=== PATIENT | female | born 1935 | race Caucasian/White ===

== ENCOUNTER 2017-06-21 11:20 | Inpatient (IN) ==
[2017-06-21] MEDS ORDERED: 0.9 % SODIUM CHLORIDE 1,000 ML IV ONE (11:42)
--- NOTE | 2017-06-21 12:18 | Emergency Department Note ---
Weakness HPI - General Chief complaint: Weakness Stated complaint: weakness Time Seen by Provider: 06/21/17 11:28 Source: patient, family, EMS Mode of arrival: wheelchair Limitations: no limitations - History of Present Illness HPI Narrative: 81-year-old female presents with her daughter for 1 month of confusion, lethargy , and weakness. She has been to [facility] multiple times in the last month and has had 2 CTs which were negative for any acute abnormality. She is also had urinary tract infections which have been treated but have not completely resolved. She is also had a cough for about a week and a half. Her oxygen saturation was low on arrival. She is pretty confused and know she is at the hospital but does not want to be here. She also has pain. Her daughter states she has been complaining of a headache. She is not on blood thinners. She did have a stroke in March 2016 that did show up on a CT scan. No diarrhea. She has not been hospitalized in the last month. She is at home with family. She is not eating very much and has not had many bowel movements because of this and is not drinking much water. - Related Data Home Medications Medication Instructions Recorded Confirmed amLODIPine [Norvasc] 10 mg PO DAILY 12/29/14 06/21/17 metFORMIN [Glucophage] 500 mg PO BID 12/29/14 06/21/17 Cyclobenzaprine HCl 10 mg PO DAILYP PRN 04/10/16 06/21/17 Donepezil HCl [Aricept] 10 mg PO HS 04/10/16 06/21/17 Furosemide [Lasix] 20 mg PO DAILY PRN 04/10/16 06/21/17 Levothyroxine [Synthroid] 100 mcg PO DAILY 04/10/16 06/21/17 Memantine HCl 50 mg PO DAILY 04/10/16 06/21/17 Polyethylene Glycol 3350 17 gm PO 3XW 04/10/16 06/21/17 [Smoothlax] Quinapril HCl [Accupril] 40 mg PO BID 04/10/16 06/21/17 Atorvastatin [Lipitor] 40 mg PO HS 06/21/17 06/21/17 Oxybutynin Chloride [Oxybutynin 10 mg PO DAILY 06/21/17 06/21/17 Chloride ER] Potassium Chloride [Klor-Con M20] 40 meq PO DAILY 06/21/17 06/21/17 Previous Rx's Medication Instructions Recorded Aspirin 324 mg CHEWED DAILY 60 Days 04/15/16 tab.chew Allergies Allergy/AdvReac Type Severity Reaction Status Date / Time codeine AdvReac Mild Other Verified 04/11/16 15:23 hydrocodone AdvReac Mild Other Verified 04/11/16 15:23 tramadol [From Ultram] AdvReac Mild Other Verified 04/11/16 15:23 Review of Systems All systems ED: reviewed and negative except as stated. 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 Absent: tenderness, lymphadenopathy Chest: Present: normal inspection, symmetric chest wall rise Respiratory: Present: other (crackles right upper and lower lobe with decrease in lung sounds in the left lower lobe) Cardiovascular: Present: regular rate, normal heart sounds Abdominal: Present: soft, normal bowel sounds. Absent: tenderness Extremities: Present: normal inspection, full ROM Neurological: Present: alert, CN II-XII intact (grossly intact. she does not follow commands well to check all cranial nerves). Absent: oriented X3 Patient oriented to: Present: person, place. Absent: time Coma Scale Eye Opening: Spontaneous Coma Scale Motor Response: Localizes to Pain Coma Scale Verbal Response: Confused Coma Scale Total: 13 Psychiatric: Present: flat affect Skin: Present: warm, dry, intact Course Vital Signs Temperature 100.1 F H 06/21/17 11:22 Pulse Rate 90 06/21/17 11:22 Respiratory Rate 18 06/21/17 11:22 Blood Pressure 136/94 06/21/17 11:22 Pulse Oximetry (%) 92 06/21/17 11:22 Temperature 99.4 F H 06/21/17 16:20 Pulse Rate 72 06/21/17 16:20 Respiratory Rate 22 06/21/17 16:20 Blood Pressure 114/53 06/21/17 16:20 Pulse Oximetry (%) 94 06/21/17 16:20 Weakness - MDM Narrative Medical decision making narrative: She will be admitted - Medical Records Medical records reviewed: Yes I reviewed the patient's medical records. On 05/30 the patient's BUN was 18, her creatinine was 1.0, her AST was 18, and her ALT was 10. This is dramatically changed in the last 3 weeks. On the she had elevated liver enzymes and they did a CT scan which did not show any abnormality. We are getting an ultrasound to evaluate her liver - Lab Data Lab results reviewed: Yes I reviewed the patient's lab results. Result diagrams: 06/21/17 12:11 06/21/17 12:10 Lab Results 06/21/17 06/21/17 06/21/17 Range/Units 12:01 12:10 12:10 WBC (4.5-11.0) K/mcL RBC (4.00-5.20) M/mcL Hgb (12.0-15.0) g/dL Hct (36.0-48.0) % MCV (80.0-100.0) fL MCH (26.0-34.0) pg MCHC (31.0-36.0) g/dL RDW (11.5-14.5) % Plt Count (140-440) K/mcL MPV (7.4-10.4) fL Total Counted Seg Neutrophils % (38-78) % Band Neutrophils % (0-10) % Lymphocytes % (15-49) % Monocytes % (Manual) (1-12) % Eosinophils % (Manual) (0-7) % Metamyelocytes % (0-0) % Reactive Lymphocytes (0-2) % Platelet Estimate (NORMAL) RBC Morphology (NORMAL) VBG Lactic Acid 0.9 (0.5-2.2) mmol/L Sodium 137 (133-145) mmol/L Potassium 5.4 H (3.3-5.1) mmol/L Chloride 103 (96-108) mmol/L Carbon Dioxide 19 L (22-30) mmol/L Anion Gap 15.0 (8-16) BUN 54 H (8-23) mg/dl Creatinine 2.2 H (0.6-1.1) mg/dl GFR Calculation 20 Glucose 84 (70-105) mg/dL Calcium 9.4 (8.6-10.4) mg/dl Total Bilirubin 1.8 H (0.0-1.0) mg/dL AST 68 H (0-37) U/l ALT 119 H (0-40) U/l Alkaline Phosphatase 246 H (39-117) U/L Ammonia (11-51) umol/L NT-Pro-B Natriuret Pep (0-450) pg/ml Total Protein 6.5 (5.9-8.4) gm/dL Albumin 3.2 (3.2-5.2) gm/dL Globulin 3.3 (2.2-3.7) gm/dL Albumin/Globulin Ratio 1.0 (1.0-2.3) Procalcitonin 2.64 (<0.10) ng/mL Urine Color Urine Appearance Urine pH (5.0-9.0) Ur Specific [place] (1.000-1.035) Urine Protein (NEG) mg/dL Urine Glucose (UA) (NEG) mg/dL Urine Ketones (NEG) mg/dL Urine Occult Blood (<0.03) mg/dL Urine Nitrate (NEG) Urine Bilirubin (NEG) mg/dL Urine Urobilinogen (NEG) mg/dL Ur Leukocyte Esterase (NEG) /uL Urine RBC (0-1) /hpf Urine WBC (0-4) /hpf Ur Squamous Epith Cells (0-4) /hpf Urine Bacteria (0) /hpf Urine Yeast (Budding) (0) /hpf Ur Culture Indicated? 06/21/17 06/21/17 06/21/17 Range/Units 12:10 12:11 12:11 WBC 18.9 H (4.5-11.0) K/mcL RBC 4.10 (4.00-5.20) M/mcL Hgb 11.9 L (12.0-15.0) g/dL Hct 36.1 (36.0-48.0) % MCV 88.1 (80.0-100.0) fL MCH 29.0 (26.0-34.0) pg MCHC 32.9 (31.0-36.0) g/dL RDW 15.7 H (11.5-14.5) % Plt Count 279 (140-440) K/mcL MPV 9.8 (7.4-10.4) fL Total Counted 100 Seg Neutrophils % 79 H (38-78) % Band Neutrophils % 5 (0-10) % Lymphocytes % 7 L (15-49) % Monocytes % (Manual) 2 (1-12) % Eosinophils % (Manual) 5 (0-7) % Metamyelocytes % 1 H (0-0) % Reactive Lymphocytes 1 (0-2) % Platelet Estimate Normal (NORMAL) RBC Morphology Normal (NORMAL) VBG Lactic Acid (0.5-2.2) mmol/L Sodium (133-145) mmol/L Potassium (3.3-5.1) mmol/L Chloride (96-108) mmol/L Carbon Dioxide (22-30) mmol/L Anion Gap (8-16) BUN (8-23) mg/dl Creatinine (0.6-1.1) mg/dl GFR Calculation Glucose (70-105) mg/dL Calcium (8.6-10.4) mg/dl Total Bilirubin (0.0-1.0) mg/dL AST (0-37) U/l ALT (0-40) U/l Alkaline Phosphatase (39-117) U/L Ammonia (11-51) umol/L NT-Pro-B Natriuret Pep 3185.0 H (0-450) pg/ml Total Protein (5.9-8.4) gm/dL Albumin (3.2-5.2) gm/dL Globulin (2.2-3.7) gm/dL Albumin/Globulin Ratio (1.0-2.3) Procalcitonin (<0.10) ng/mL Urine Color Yellow Urine Appearance Hazy Urine pH 5.0 (5.0-9.0) Ur Specific [place] 1.016 (1.000-1.035) Urine Protein Neg (NEG) mg/dL Urine Glucose (UA) Negative (NEG) mg/dL Urine Ketones Neg (NEG) mg/dL Urine Occult Blood 0.03 A (<0.03) mg/dL Urine Nitrate Neg (NEG) Urine Bilirubin Neg (NEG) mg/dL Urine Urobilinogen Neg (NEG) mg/dL Ur Leukocyte Esterase 25 A (NEG) /uL Urine RBC 8 H (0-1) /hpf Urine WBC 10 H (0-4) /hpf Ur Squamous Epith Cells < 1 (0-4) /hpf Urine Bacteria 0 (0) /hpf Urine Yeast (Budding) Many A (0) /hpf Ur Culture Indicated? Yes 06/21/17 Range/Units 12:30 WBC (4.5-11.0) K/mcL RBC (4.00-5.20) M/mcL Hgb (12.0-15.0) g/dL Hct (36.0-48.0) % MCV (80.0-100.0) fL MCH (26.0-34.0) pg MCHC (31.0-36.0) g/dL RDW (11.5-14.5) % Plt Count (140-440) K/mcL MPV (7.4-10.4) fL Total Counted Seg Neutrophils % (38-78) % Band Neutrophils % (0-10) % Lymphocytes % (15-49) % Monocytes % (Manual) (1-12) % Eosinophils % (Manual) (0-7) % Metamyelocytes % (0-0) % Reactive Lymphocytes (0-2) % Platelet Estimate (NORMAL) RBC Morphology (NORMAL) VBG Lactic Acid (0.5-2.2) mmol/L Sodium (133-145) mmol/L Potassium (3.3-5.1) mmol/L Chloride (96-108) mmol/L Carbon Dioxide (22-30) mmol/L Anion Gap (8-16) BUN (8-23) mg/dl Creatinine (0.6-1.1) mg/dl GFR Calculation Glucose (70-105) mg/dL Calcium (8.6-10.4) mg/dl Total Bilirubin (0.0-1.0) mg/dL AST (0-37) U/l ALT (0-40) U/l Alkaline Phosphatase (39-117) U/L Ammonia 19 (11-51) umol/L NT-Pro-B Natriuret Pep (0-450) pg/ml Total Protein (5.9-8.4) gm/dL Albumin (3.2-5.2) gm/dL Globulin (2.2-3.7) gm/dL Albumin/Globulin Ratio (1.0-2.3) Procalcitonin (<0.10) ng/mL Urine Color Urine Appearance Urine pH (5.0-9.0) Ur Specific [place] (1.000-1.035) Urine Protein (NEG) mg/dL Urine Glucose (UA) (NEG) mg/dL Urine Ketones (NEG) mg/dL Urine Occult Blood (<0.03) mg/dL Urine Nitrate (NEG) Urine Bilirubin (NEG) mg/dL Urine Urobilinogen (NEG) mg/dL Ur Leukocyte Esterase (NEG) /uL Urine RBC (0-1) /hpf Urine WBC (0-4) /hpf Ur Squamous Epith Cells (0-4) /hpf Urine Bacteria (0) /hpf Urine Yeast (Budding) (0) /hpf Ur Culture Indicated? - Radiology Data Radiology results reviewed: Yes I reviewed the patient's radiology results. Mild interstitial infiltrate centrally in the right lung which is superimposed upon mild pulmonary fibrosis . Discoid atelectasis at the right costophrenic sulcus Borderline cardiomegaly Negative liver US Disposition Pt seen by TIN ROOFER/PA only: No Clinical Impression: Sepsis, Urinary tract infection, Pneumonia Disposition: Xfer As Inpt ([facility]) Condition: Fair
[2017-06-21] MEDS ORDERED: ACETAMINOPHEN 650 MG/65 ML BOTTLE IV ONE (12:38)
[2017-06-21] MEDS ORDERED: cefTRIAXone 1 GM VIAL IV ONE (12:39)
[2017-06-21 12:50] LABS: Mean Cell Volume 88.1 fL (80.0-100.0); Mean Corpuscular HGB Conc 32.9 g/dL (31.0-36.0); Platelet Count 279 K/mcL (140-440); Red Cell Distribution Width 15.7 % (11.5-14.5)
[2017-06-21 12:53] LABS: Appearance,Urine HAZY; Bacteria,Urine 0 /hpf (0); Bilirubin,Urine NEG (NEG); Color,Urine YELLOW; Glucose,Urine (UA) NEGATIVE (NEG); Leukocyte Esterase,Urine 25 /uL (NEG); Protein,Urine NEG (NEG); Specific Gravity,Urine 1.016 (1.000-1.035); Urine Blood 0.03 mg/dL (<0.03); Urine Budding Yeast MANY /hpf (0); Urine RBC 8 /hpf (0-1); Urine Squamous Epithelial Cell < 1 /hpf (0-4); Urine WBC 10 /hpf (0-4); Urobilinogen,Urine NEG (NEG)
[2017-06-21 13:12] LABS: ALT/SGPT 119 U/l (0-40); Albumin 3.2 gm/dL (3.2-5.2); Alkaline Phosphatase 246 U/L (39-117); Blood Urea Nitrogen 54 mg/dl (8-23)
[2017-06-21 13:19] LABS: Band Neutrophils % 5 % (0-10); Eosinophils % (Manual) 5 % (0-7); Lymphocytes % 7 % (15-49); Metamyelocytes % 1 % (0-0); Monocytes % (Manual) 2 % (1-12); Platelet Estimate NORMAL (NORMAL); RBC Morphology NORMAL (NORMAL); Segmented Neutrophils % 79 % (38-78)
--- NOTE | 2017-06-21 13:57 | XRay Report ---
HISTORY: Reason for Exam:Fever, cough FINDINGS: Right diaphragm is mild to moderately elevated. This is a chronic finding but of undetermined etiology. Patient has not taken a deep inspiration. There is crowding of the pulmonary vascular markings. A band of discoid atelectasis is developed in the right lower lobe. There may be a perihilar infiltrate in the central portion of the right lung. Patient has mild underlying interstitial fibrosis. The heart size is upper limits of normal but magnified by portable technique. The aorta is tortuous. Pulmonary vasculature is borderline engorged. There is a large amount of soft tissue calcification around both shoulders. Much of this may be within the rotator cuff. This may be due to calcium hydroxyapatite deposition disease. IMPRESSION: Mild interstitial infiltrate centrally in the right lung which is superimposed upon mild pulmonary fibrosis . Discoid atelectasis at the right costophrenic sulcus Borderline cardiomegaly Interpreted and Authenticated by: Moe Del Toro 06/21/17
[2017-06-21] MEDS ORDERED: CEFEPIME 1 GM VIAL IV ONE (14:06)
[2017-06-21] MEDS ORDERED: VANCOMYCIN PER PHARMACY IV ONE ×2 (14:06→16:24)
--- NOTE | 2017-06-21 14:10 | Emergency Department Note ---
ED Note Addendum Note Addendum: I have examined the patient who states she has been having weakness and cough for the past week has been treated for a UTI 3 weeks ago. Has had several workups at [facility]. Her white count is elevated 18, 900 chest x-ray shows right infiltrate. Ultrasound been drawn and antibiotics have been started. Dr. AARON is been contacted by Zeenat and patient to be admitted ultrasound of the liver as there are and abnormal liver function tests as well.
[2017-06-21] MEDS ORDERED: VANCOMYCIN 1,000 MG in 0.9 % SODIUM CHLORIDE 250 ML IV ONE (14:15)
--- NOTE | 2017-06-21 15:49 | Internal Med History&Physical ---
Medical - H&P: HPI Patient information: Note initiated : 06/21/17 at 3:44 pm Service Date, if different from initiated Date: [] Patient: Lois Guy 81 y/o F admitted on for weakness. Chief Complaint: [] History of present illness: Ms. 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 Presently has no neurological deficit. The patient is brought to the emergency room today because of confusion that has been going on for the last 1 month. History was provided by the patient's daughter patient was unable to provide any meaningful history. She was very confused. According to the daughter, the patient at baseline is quite independent, has memory issues but is able to carry out her activities of daily living. She lives with her . Since the early this month the patient has been not doing so well, she has been confused, she's been having some cough with some expectoration. The patient has been very weak, and has not been eating drinking very well. She has been bedbound. She has had 3 episodes of urinary incontinence. The patient was taken to emergency room at [facility], I believe at 3 separate occasions during this time. She was diagnosed with UTI for the first 2 times, and then they could not find anything abnormal on the which was her last ER visit. They had sent her back home. The patient was therefore brought to the emergency room at [facility] for further evaluation. In the emergency room the patient had a low-grade fever, she was confused and unable to provide any history. She had elevated white blood cell count at 18,900, neutrophils of 79%, hemoglobin of 11.9, platelets 279. He has mild hyperkalemia with potassium of 5.4, acute renal failure with creatinine of 2.2 the urine of 54. Lactic acid is 0.9, bicarbonate is 19. Her liver function tests are normal, total bilirubin is 1.8, AST 68, ALP 119, alkaline phosphatase is 246. Her UA is abnormal positive leukoesterase negative nitrites and few PVCs Patient's had a chest x-ray done which shows right interstitial infiltrate. I reviewed the workup done at [facility], she's had a negative CT abdomen and pelvis done on the . This study was done with contrast. She's had a head CT stand on 06/03/17 and 06/17/17 both of which revealed no acute pathology. She's had 2 x-rays done both of which were negative last x-ray was The patient is being admitted to the hospital for management of sepsis, pneumonia, UTI and multiorgan dysfunction ROS unobtainable: due to mental status Medical - H&P: H Medical history: Medical History Left wrist pain (Acute) Arthralgia of left elbow (Acute) Laceration (Acute) Encounter for removal of sutures (Acute) Arthritis of left knee (Acute) Effusion, left knee (Acute) Cervical strain (Acute) Ischemic cerebrovascular accident (CVA) of frontal lobe (Acute) Arthritis (Acute) Hand pain, right (Acute) diabetes type Hypertension Hyperlipidemia Hypothyroidism dementia Surgical history: gallbladder surgery Hysterectomy Pertinent family history: father of myocardial infarction Social history: lives with her Does not smoke, does not drink, no dictation substance use according to the daughter. Medical - H&P: Meds Home Medications Medication Instructions Recorded Confirmed Type amLODIPine [Norvasc] 10 mg PO DAILY 12/29/14 06/21/17 History metFORMIN [Glucophage] 500 mg PO BID 12/29/14 06/21/17 History Cyclobenzaprine HCl 10 mg PO DAILYP PRN 04/10/16 06/21/17 History Donepezil HCl [Aricept] 10 mg PO HS 04/10/16 06/21/17 History Furosemide [Lasix] 20 mg PO DAILY PRN 04/10/16 06/21/17 History Levothyroxine [Synthroid] 100 mcg PO DAILY 04/10/16 06/21/17 History Memantine HCl 50 mg PO DAILY 04/10/16 06/21/17 History Polyethylene Glycol 3350 17 gm PO 3XW 04/10/16 06/21/17 History [Smoothlax] Quinapril HCl [Accupril] 40 mg PO BID 04/10/16 06/21/17 History Aspirin 324 mg CHEWED DAILY 60 Days 04/15/16 06/21/17 Rx tab.chew Atorvastatin [Lipitor] 40 mg PO HS 06/21/17 06/21/17 History Oxybutynin Chloride [Oxybutynin 10 mg PO DAILY 06/21/17 06/21/17 History Chloride ER] Potassium Chloride [Klor-Con M20] 40 meq PO DAILY 06/21/17 06/21/17 History Allergies Allergy/AdvReac Type Severity Reaction Status Date / Time codeine AdvReac Mild Other Verified 04/11/16 15:23 hydrocodone AdvReac Mild Other Verified 04/11/16 15:23 tramadol [From Ultram] AdvReac Mild Other Verified 04/11/16 15:23 Medical - H&P: Exam - Constitutional Vitals: Temp Pulse Resp BP Pulse Ox 99.3 F H 75 22 115/69 99 06/21/17 13:45 06/21/17 15:00 06/21/17 14:31 06/21/17 15:00 06/21/17 15:00 Exam: GENERAL: The patient is a well-developed, well-nourished in no apparent distress. Is alert and oriented x0. VITAL SIGNS: Reviewed and as noted elsewhere. HEENT: Head is normocephalic and atraumatic. Extraocular muscles are intact. Pupils are equal, round, and reactive to light. Nares appeared normal. mouth mucosa lips show some inflammation. Mucous membranes dr dry, lips have chielitis. NECK: Normal to inspection, Supple, No lymphadenopathy or thyromegaly. LUNGS: Air entry equal on both sides,no wheezing, right basilar crackles noted. Not in respiratory distress HEART: Regular rate and rhythm normal, S1 and S2 heard, no Gallop, S3 or Rub Noted, No Gross murmur heard. ABDOMEN: Soft, nontender, and nondistended. Positive bowel sounds. No hepatosplenomegaly was noted. EXTREMITIES: No cyanosis, clubbing, rash, lesions , edema present +1 NEUROLOGIC: Cranial nerves II through XII are grossly intact. Motor and Sensory System Grossly Intact, patient is moving all extremity has very poor attention span and therefore a compressive history not possible. Pupils are 2 mm reactive light PSYCHIATRIC: confused, poor attention span. Unable to comprehend SKIN: No ulceration or wounds noted, No jaundice, No rash noted. Medical - H&P: Reslt - Labs CBC & Chem 7: 06/21/17 12:11 06/21/17 12:10 Labs: Short CBC 06/21/17 Range/Units 12:11 WBC 18.9 H (4.5-11.0) K/mcL Hgb 11.9 L (12.0-15.0) g/dL Hct 36.1 (36.0-48.0) % Plt Count 279 (140-440) K/mcL BMP 06/21/17 12:10 Sodium 137 Potassium 5.4 H Chloride 103 Carbon Dioxide 19 L BUN 54 H Creatinine 2.2 H Glucose 84 Calcium 9.4 Liver Function 06/21/17 Range/Units 12:10 Total Bilirubin 1.8 H (0.0-1.0) mg/dL AST 68 H (0-37) U/l ALT 119 H (0-40) U/l Alkaline Phosphatase 246 H (39-117) U/L Albumin 3.2 (3.2-5.2) gm/dL Urine 06/21/17 Range/Units 12:11 Urine Color Yellow Urine Appearance Hazy Urine pH 5.0 (5.0-9.0) Ur Specific [place] 1.016 (1.000-1.035) Urine Protein Neg (NEG) mg/dL Urine Glucose (UA) Negative (NEG) mg/dL - EKG Data -: EKG Reviewed by Myself (sinus, poor voltage on limb leads) Medical - H&P: A/P - Narrative A/P Narrative: A/P Sepsis with multi organ dysfunction: lime 2 score of 15, mortality rate of 22 percent, patients daugther explaiend about the overall disease process and likely bradley of poor outcome. Plan to treat underling condition, pt maintainig bp , normal lactic acid. Pneumonia: likely aspiration pneumonia, will treat with hcap coverage given 2 rounds of abx given recently IV vanco, zosyn. Urinary tract infection: Ecoli as per culture in [facility], UA still suggestive of UTI, iv zosyn should cover. Altered mental status/ Septic Encephalopathy: due to underlying infection CT head x [address] was on 06/16, Abnormal liver function test: Etiology, CT abdomen is neg, USG is reported neg by ER provider, pt has cholestatic picture, likely related to sepsis. Could also be related to antibiotic use recently. Acute Kidney Injury: Poor oral intake, over 3 weeks, Creat was 1.5 on , after which she got fluid bolus x [address] abdomen with contrast. Place goldsmith, IV fluids for now, monitor for response. she may have contrast induced nephropathy. Dementia: Able to carry out ADL, bad with recent memory but lives independently with . Plan to resume home meds, high risk for falls. Diastolic heart failure grade 2: clinically dry, recent echo reviewed, has elevated bnp. monitor now. Hypothyroidism: resume synthroid, check tsh Hyperkalemia: due to use of RYAN arb and renal failure, monitor for now, goldsmith and IV fluids, recheck labs in PM if still high will give kayexalate. Diabetes: hold metformin, sliding scale insulin for now. HTN: Hold diuetrics, hold amlodipien and RYAN inhibitors. BP soft, IV fluids for now. DVT hep sq Diet MEch soft diet Full code for now, pt ok with cpr and intubation but does nto wish to live as a vegetable if not reversed daugther will likely consider withdrawal of care.
[2017-06-21] MEDS ORDERED: DEXTROSE 50% 50 ML VIAL IV PRN ×2 (16:04→16:24)
[2017-06-21] MEDS ORDERED: DEXTROSE 31 GM ORAL.SUSP PO PRN ×2 (16:04→16:24)
[2017-06-21] MEDS ORDERED: NALOXONE HCL 0.4 MG/ML VIAL IV PRN (16:24)
[2017-06-21] MEDS ORDERED: ONDANSETRON 4 MG/2 ML VIAL IV PRN (16:24)
[2017-06-21] MEDS ORDERED: ACETAMINOPHEN 325 MG TABLET PO PRN (16:24)
[2017-06-21] MEDS ORDERED: CYCLOBENZAPRINE 10 MG TABLET PO PRN (16:24)
[2017-06-21] MEDS: LACTATED RINGERS 1,000 ML IV SCH (16:41)
[2017-06-21] MEDS ORDERED: INSULIN LISPRO 1 UNIT/0.01 ML UNIT SQ SCH (17:00)
[2017-06-21] MEDS: PIPERACILLIN SODIUM/TAZOBACTAM 2.25 GM in DEXTROSE 5% IN WATER 50 ML IV SCH ×2 (17:56→23:57)
[2017-06-21] MEDS: INSULIN LISPRO 1 UNIT/0.01 ML UNIT SQ SCH ×2 (18:28→22:01)
[2017-06-21 19:56] LABS: Blood Urea Nitrogen 50 mg/dl (8-23)
[2017-06-21 20:34] LABS: Appearance,Urine HAZY; Bacteria,Urine 0 /hpf (0); Bilirubin,Urine NEG (NEG); Color,Urine YELLOW; Glucose,Urine (UA) NEGATIVE (NEG); Leukocyte Esterase,Urine NEG /uL (NEG); Protein,Urine NEG (NEG); Specific Gravity,Urine 1.016 (1.000-1.035); Urine Amorphous Crystals MOD /hpf (0); Urine Blood 0.03 mg/dL (<0.03); Urine Budding Yeast MANY /hpf (0); Urine RBC 1 /hpf (0-1); Urine Squamous Epithelial Cell 0 /hpf (0-4); Urine WBC 2 /hpf (0-4); Urobilinogen,Urine NEG (NEG)
[2017-06-21] MEDS: HEPARIN 5,000 UNIT/ML VIAL SQ SCH (21:54)
[2017-06-21] MEDS: DONEPEZIL 10 MG TABLET PO SCH (21:54)
[2017-06-21] MEDS: FAMOTIDINE/PF 20 MG/2 ML VIAL IV SCH (21:54)
[2017-06-21] MEDS: ATORVASTATIN 20 MG TABLET PO SCH (21:55)
[2017-06-21] MEDS: 0.9 % SODIUM CHLORIDE 10 ML SYRINGE IV SCH (21:56)
[2017-06-22] MEDS: LACTATED RINGERS 1,000 ML IV SCH ×2 (02:19→03:33)
[2017-06-22] MEDS: 0.9 % SODIUM CHLORIDE 10 ML SYRINGE IV SCH ×3 (04:02→22:45)
[2017-06-22 05:50] LABS: Basophils # (Auto) 0 K/mcL (0.0-0.3); Basophils % (Auto) 0.2 % (0.0-2.0); Eosinophils # (Auto) 1.3 K/mcL (0.0-0.7); Eosinophils % (Auto) 7.8 % (0.0-7.0); Granulocytes % (Auto) 85.4 % (38.0-78.0); Lymphocytes # (Auto) 0.6 K/mcL (1.5-4.8); Mean Cell Volume 89.5 fL (80.0-100.0); Mean Corpuscular Hemoglobin 29.6 pg (26.0-34.0); Monocytes # (Auto) 0.4 K/mcL (0.1-0.9); Monocytes % (Auto) 2.6 % (1.0-12.0); Platelet Count 253 K/mcL (140-440); RBC 3.64 M/mcL (4.00-5.20); Red Cell Distribution Width 16.4 % (11.5-14.5)
[2017-06-22 06:21] LABS: ALT/SGPT 88 U/l (0-40); Albumin 2.4 gm/dL (3.2-5.2); Albumin/Globulin Ratio 0.8 (1.0-2.3); Alkaline Phosphatase 177 U/L (39-117); Bilirubin,Direct 0.8 mg/dL (0.0-0.3); Blood Urea Nitrogen 44 mg/dl (8-23); Gamma Glutamyl Transpeptidase 320 U/L (5-36); Uric Acid 5.8 mg/dL (2.5-8.0)
[2017-06-22] MEDS ORDERED: VANCOMYCIN PER PHARMACY IV SCH (07:15)
--- NOTE | 2017-06-22 08:59 | Ultrasound Report ---
History: Abdominal pain with elevated liver enzymes Findings: The liver is normal in size and homogeneous. Doppler shows normal blood flow in the hepatic and portal veins. The gallbladder has been removed. Intrahepatic ducts and common hepatic duct are normal in caliber. Common hepatic duct is 2 mm. Common bile duct is dilated proximally but tapers distally. It measures up to 12 mm. No stone is seen within the lumen. The pancreas is normal in size and homogeneous without evidence of a mass, inflammation or dilatation of the duct. A 2.7 x 3.1 cm cortical cyst is present in the upper pole the right kidney. No ascites or mass are seen. Impression: Anatomically normal liver Dilated common bile duct. This is probably a reservoir effect following the prior cholecystectomy and less likely a nonvisualized distal common bile duct stone or stricture at the ampulla. Interpreted and Authenticated by: Moe Del Toro 06/22/17
[2017-06-22] MEDS: PIPERACILLIN SODIUM/TAZOBACTAM 2.25 GM in DEXTROSE 5% IN WATER 50 ML IV SCH ×3 (09:00→22:33)
[2017-06-22] MEDS ORDERED: POLYETHYLENE GLYCOL 3350 17 GM PACKET PO PRN (09:00)
[2017-06-22] MEDS: LEVOTHYROXINE 100 MCG TABLET PO SCH (09:59)
[2017-06-22] MEDS: INSULIN LISPRO 1 UNIT/0.01 ML UNIT SQ SCH ×4 (09:59→21:31)
[2017-06-22] MEDS: OXYBUTYNIN CHLORIDE 5 MG TAB.XL.24H PO SCH (10:00)
[2017-06-22] MEDS: MEMANTINE 10 MG TABLET PO SCH (10:00)
[2017-06-22] MEDS: ASPIRIN 81 MG TAB.CHEW CHEWED SCH (10:00)
[2017-06-22] MEDS: HEPARIN 5,000 UNIT/ML VIAL SQ SCH ×2 (10:15→21:31)
[2017-06-22] MEDS: FLUCONAZOLE 200 MG/100 ML BAG IV SCH (12:04)
[2017-06-22] MEDS ORDERED: VANCOMYCIN 1,000 MG in 0.9 % SODIUM CHLORIDE 250 ML IV ONE (13:00)
--- NOTE | 2017-06-22 13:06 | Internal Med Progress Note ---
Medical - PN: Subj Patient information: Note initiated : 06/22/17 at 1:01 pm Service Date, if different from initiated Date: [] Patient: Lois Guy 81 y/o F admitted on 06/21/17 for weakness. Chief Complaint: [] Interval history: Ms. 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 Presently has no neurological deficit. The patient is brought to the emergency room today because of confusion that has been going on for the last 1 month. History was provided by the patient's daughter patient was unable to provide any meaningful history. She was very confused. According to the daughter, the patient at baseline is quite independent, has memory issues but is able to carry out her activities of daily living. She lives with her . Since the early this month the patient has been not doing so well, she has been confused, she's been having some cough with some expectoration. The patient has been very weak, and has not been eating drinking very well. She has been bedbound. She has had 3 episodes of urinary incontinence. The patient was taken to emergency room at [facility], I believe at 3 separate occasions during this time. She was diagnosed with UTI for the first 2 times, and then they could not find anything abnormal on the which was her last ER visit. They had sent her back home. The patient was therefore brought to the emergency room at [facility] for further evaluation. In the emergency room the patient had a low-grade fever, she was confused and unable to provide any history. She had elevated white blood cell count at 18,900, neutrophils of 79%, hemoglobin of 11.9, platelets 279. He has mild hyperkalemia with potassium of 5.4, acute renal failure with creatinine of 2.2 the urine of 54. Lactic acid is 0.9, bicarbonate is 19. Her liver function tests are normal, total bilirubin is 1.8, AST 68, ALP 119, alkaline phosphatase is 246. Her UA is abnormal positive leukoesterase negative nitrites and few PVCs Patient's had a chest x-ray done which shows right interstitial infiltrate. I reviewed the workup done at [facility], she's had a negative CT abdomen and pelvis done on the . This study was done with contrast. She's had a head CT stand on 06/03/17 and 06/17/17 both of which revealed no acute pathology. She's had 2 x-rays done both of which were negative last x-ray was The patient is being admitted to the hospital for management of sepsis, pneumonia, UTI and multiorgan dysfunction jun 22 patient seen and examined today, no acute overnight events, patient clinically somewhat better labs are improving. The patient was able to provide some answers to direct questioning. Daughter was at bedside. Urine culture positive for Bhargavi IV Diflucan started Pertinent ROS: unable - Constitutional Vitals: Vital Signs Temp Pulse Resp BP Pulse Ox 98.6 F 73 18 125/69 94 06/22/17 12:01 06/22/17 12:01 06/22/17 00:01 06/22/17 12:01 06/22/17 12:01 Period Temp Pulse Resp BP Sys/Bañuelos Pulse Ox Last 24 Hr 97.5 F-99.8 F 63-87 15-24 93-140/45-82 89-100 Intake and Output 06/21/17 06/22/17 06/22/17 21:59 05:59 13:59 Intake Total 660 / 660 1050 / 1050 50 / 50 Output Total 950 / 950 Balance 660 / 660 100 / 100 50 / 50 Weight 173 lb Intake & Output: Intake & Output 06/21/17 06/22/17 06/22/17 21:59 05:59 13:59 Intake Total 660 / 660 1050 / 1050 50 / 50 Output Total 950 / 950 Balance 660 / 660 100 / 100 50 / 50 Weight 173 lb Intake: IV 300 / 300 1050 / 1050 50 / 50 Lactated Ringers 1,000 ml @ 100 1000 / 1000 mls/hr IV .Q10H [facility] Rx#: [id number] Zosyn 2.25 gm In Dextrose 5% in 50 / 50 50 / 50 50 / 50 Water 50 ml @ 100 mls/hr IV Q8H [facility] Rx#:[id number] Vancomycin 1,000 mg In Sodium 250 / 250 Chloride 0.9% 250 ml @ 250 mls/ hr IV ONCE ONE Rx#:[id number] Oral 360 / 360 Output: Urine Catheter Amount 950 / 950 Other: Meal Breakfast Percent of Meal Consumed bites Feeding Ability Assist with Tray Set Up Exam: Constitutional; Afebrile, drowsy, but not in distress. Eyes- No icterus, , No periorbital swelling Neck- Midline trachea, supple Respiratory system: Air Entry equal on both sides,basilar crackles inspiratory, no wheezing. CVS- Rate rhythm regular, S1,S2 heard, no gallop, no rub. 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 Medical - PN: Obj Da - Labs CBC & Chem 7: 06/22/17 04:00 06/22/17 04:00 Labs: Abnormal Lab Results 06/22/17 06/22/17 06/21/17 04:00 04:00 19:10 WBC 16.1 H RBC 3.64 L Hgb 10.8 L Hct 32.6 L RDW 16.4 H Gran % 85.4 H Lymph % (Auto) 4.0 L Eos % (Auto) 7.8 H Gran # 13.8 H Lymph # (Auto) 0.6 L Eos # (Auto) 1.3 H Seg Neutrophils % Lymphocytes % Metamyelocytes % Potassium 5.4 H Carbon Dioxide 20 L 20 L BUN 44 H 50 H Creatinine 1.5 H 1.8 H Total Bilirubin 1.2 H Direct Bilirubin 0.8 H GGT 320 H AST 45 H ALT 88 H Alkaline Phosphatase 177 H NT-Pro-B Natriuret Pep Total Protein 5.6 L Albumin 2.4 L Albumin/Globulin Ratio 0.8 L Urine Occult Blood Ur Leukocyte Esterase Urine RBC Urine WBC Amorphous Crystals Urine Yeast (Budding) 06/21/17 06/21/17 06/21/17 19:00 12:11 12:11 WBC 18.9 H RBC Hgb 11.9 L Hct RDW 15.7 H Gran % Lymph % (Auto) Eos % (Auto) Gran # Lymph # (Auto) Eos # (Auto) Seg Neutrophils % 79 H Lymphocytes % 7 L Metamyelocytes % 1 H Potassium Carbon Dioxide BUN Creatinine Total Bilirubin Direct Bilirubin GGT AST ALT Alkaline Phosphatase NT-Pro-B Natriuret Pep Total Protein Albumin Albumin/Globulin Ratio Urine Occult Blood 0.03 A 0.03 A Ur Leukocyte Esterase 25 A Urine RBC 8 H Urine WBC 10 H Amorphous Crystals Mod A Urine Yeast (Budding) Many A Many A 06/21/17 06/21/17 12:10 12:10 WBC RBC Hgb Hct RDW Gran % Lymph % (Auto) Eos % (Auto) Gran # Lymph # (Auto) Eos # (Auto) Seg Neutrophils % Lymphocytes % Metamyelocytes % Potassium 5.4 H Carbon Dioxide 19 L BUN 54 H Creatinine 2.2 H Total Bilirubin 1.8 H Direct Bilirubin GGT AST 68 H ALT 119 H Alkaline Phosphatase 246 H NT-Pro-B Natriuret Pep 3185.0 H Total Protein Albumin Albumin/Globulin Ratio Urine Occult Blood Ur Leukocyte Esterase Urine RBC Urine WBC Amorphous Crystals Urine Yeast (Budding) Meds: Medications Acetaminophen (Tylenol) 650 mg PO Q6HP PRN PRN Reason: PAIN/FEVER > 101 Aspirin (Aspirin) 324 mg CHEWED DAILY [facility] Last Admin: 06/22/17 10:00 Dose: Not Given Atorvastatin Calcium (Lipitor) 40 mg PO HS [facility] Last Admin: 06/21/17 21:55 Dose: 40 mg Cyclobenzaprine HCl (Flexeril) 10 mg PO DAILYP PRN PRN Reason: Muscle Spasm Last Admin: 06/21/17 21:55 Dose: 10 mg Dextrose (Dextrose 50%) 0 ml IV UD PRN PRN Reason: Hypoglycemia Diagnostic Test (Pha) (Accu-Chek) 1 each FS ACHS [facility] Last Admin: 06/22/17 08:00 Dose: 1 each Donepezil HCl (Aricept) 10 mg PO HS [facility] Last Admin: 06/21/17 21:54 Dose: 10 mg Famotidine (Pepcid) 20 mg IV HS [facility] Last Admin: 06/21/17 21:54 Dose: 20 mg Glucose (Insta-Glucose) 15 gm PO PRN PRN PRN Reason: Hypoglycemia Heparin Sodium (Porcine) (Heparin) 5,000 unit SQ Q12 [facility] Last Admin: 06/22/17 10:15 Dose: 5,000 unit Piperacillin Sod/Tazobactam (Sod 2.25 gm/ Dextrose) 50 mls @ 100 mls/hr IV Q8H [facility] Last Infusion: 06/22/17 09:40 Dose: Infused Fluconazole (Diflucan) 200 mg in 100 mls @ 100 mls/hr IV DAILY [facility] Last Admin: 06/22/17 12:04 Dose: 100 mls/hr Vancomycin HCl 1,000 mg/ (Sodium Chloride) 250 mls @ 250 mls/hr IV ONCE ONE Stop: 06/22/17 13:59 Insulin Human Lispro (Humalog) 0 unit SQ ACHS [facility] PRN Reason: Protocol Last Admin: 06/22/17 09:59 Dose: Not Given Levothyroxine Sodium (Synthroid) 100 mcg PO ACB [facility] Last Admin: 06/22/17 09:59 Dose: Not Given Memantine (Namenda) 5 mg PO DAILY [facility] Last Admin: 06/22/17 10:00 Dose: Not Given Naloxone HCl (Narcan) 0.1 mg IV Q2MIN PRN PRN Reason: Opiate Reversal Ondansetron HCl (Zofran) 4 mg IV Q4HP PRN PRN Reason: Nausea And Vomiting Oxybutynin Chloride (Ditropan Xl) 10 mg PO DAILY [facility] Last Admin: 06/22/17 10:00 Dose: Not Given Polyethylene Glycol (Miralax) 17 gm PO DAILYP PRN PRN Reason: CONSTIPATION Sodium Chloride (Saline Flush) 10 ml IV Q8 [facility] Last Admin: 06/22/17 04:02 Dose: Not Given Vancomycin HCl (Vancomycin Per Pharmacy) 1 order IV [facility] Medical - PN: A/P - Time Spent With Patient Total time spent is greater than 50% in coordination of care (as documented) at patient's floor/unit and/or counseling patient: - Narrative A/P Narrative: A/P Sepsis with multi organ dysfunction: chuloonawick 2 score of 15, mortality rate of 22 percent, bp low this AM, but improved later, monitor for now. Pt still high risk for mortality. Pneumonia: likely aspiration pneumonia, will treat with hcap coverage given 2 rounds of abx given recently IV vanco, zosyn. day 1 today. (pt started abx yesterday evening. Urinary tract infection: Ecoli as per culture in [facility], UA still suggestive of UTI, iv zosyn should cover. Bhargavi positive, diflucan added. Altered mental status/ Septic Encephalopathy: due to underlying infection CT head x [address] was on 06/16, mental status is improving slowly. Abnormal liver function test: Etiology, CT abdomen is neg, USG is reported neg by ER provider, pt has cholestatic picture, likely related to sepsis. Could also be related to antibiotic use recently. LFT trendign down Acute Kidney Injury: Poor oral intake, over 3 weeks, Creat was 1.5 on , after which she got fluid bolus x [address] abdomen with contrast. Place goldsmith, IV fluids for now, monitor for response. she may have contrast induced nephropathy. renal function improving. Dementia: Able to carry out ADL, bad with recent memory but lives independently with . home med resumed. Diastolic heart failure grade 2: clinically dry, recent echo reviewed, has elevated bnp. monitor now. Hypothyroidism: resume synthroid, check tsh Hyperkalemia: due to use of RYAN arb and renal failure, monitor for now, goldsmith and IV fluids, K better this AM Diabetes: hold metformin, sliding scale insulin for now. HTN: Hold diuetrics, hold amlodipien and RYAN inhibitors. BP soft, IV fluids for now. DVT hep sq Diet MEch soft diet Full code for now, pt ok intubation but no cpr . Medical - PN: Qual - VTE Deep Vein Thrombosis/Pulmonary Embolism Present on Admission: No
[2017-06-22] MEDS: ATORVASTATIN 20 MG TABLET PO SCH (21:30)
[2017-06-22] MEDS: DONEPEZIL 10 MG TABLET PO SCH (21:30)
[2017-06-22] MEDS: FAMOTIDINE/PF 20 MG/2 ML VIAL IV SCH (21:32)
[2017-06-23] MEDS: PIPERACILLIN SODIUM/TAZOBACTAM 2.25 GM in DEXTROSE 5% IN WATER 50 ML IV SCH ×3 (05:30→21:51)
[2017-06-23 05:35] LABS: Basophils # (Auto) 0 K/mcL (0.0-0.3); Basophils % (Auto) 0.1 % (0.0-2.0); Eosinophils % (Auto) 6.2 % (0.0-7.0); Granulocytes % (Auto) 84.9 % (38.0-78.0); Lymphocytes # (Auto) 0.9 K/mcL (1.5-4.8); Lymphocytes % (Auto) 5.2 % (15.5-49.0); Mean Cell Volume 89.4 fL (80.0-100.0); Mean Corpuscular HGB Conc 33.2 g/dL (31.0-36.0); Mean Corpuscular Hemoglobin 29.7 pg (26.0-34.0); Monocytes # (Auto) 0.6 K/mcL (0.1-0.9); Monocytes % (Auto) 3.6 % (1.0-12.0); Platelet Count 288 K/mcL (140-440); Red Cell Distribution Width 16.4 % (11.5-14.5)
[2017-06-23 06:03] LABS: ALT/SGPT 75 U/l (0-40); Albumin 2.3 gm/dL (3.2-5.2); Albumin/Globulin Ratio 0.7 (1.0-2.3); Alkaline Phosphatase 153 U/L (39-117); Bilirubin,Direct 0.5 mg/dL (0.0-0.3); Blood Urea Nitrogen 34 mg/dl (8-23); Gamma Glutamyl Transpeptidase 293 U/L (5-36)
[2017-06-23] MEDS: 0.9 % SODIUM CHLORIDE 10 ML SYRINGE IV SCH ×3 (07:16→21:51)
[2017-06-23] MEDS: INSULIN LISPRO 1 UNIT/0.01 ML UNIT SQ SCH ×4 (07:17→21:47)
[2017-06-23] MEDS ORDERED: MAGNESIUM SULFATE 2 GM/50 ML BAG IV ONE (07:30)
[2017-06-23] MEDS: FLUCONAZOLE 200 MG/100 ML BAG IV SCH (09:10)
[2017-06-23] MEDS: ASPIRIN 81 MG TAB.CHEW CHEWED SCH (09:12)
[2017-06-23] MEDS: LEVOTHYROXINE 100 MCG TABLET PO SCH (09:12)
[2017-06-23] MEDS: OXYBUTYNIN CHLORIDE 5 MG TAB.XL.24H PO SCH (09:12)
[2017-06-23] MEDS: MEMANTINE 10 MG TABLET PO SCH (09:13)
[2017-06-23] MEDS ORDERED: VANCOMYCIN 1,000 MG in 0.9 % SODIUM CHLORIDE 250 ML IV SCH (11:00)
[2017-06-23] MEDS: HEPARIN 5,000 UNIT/ML VIAL SQ SCH ×2 (11:02→21:51)
[2017-06-23] MEDS: DEXTROSE 5%-1/2NS W/20MEQ KCL 1,000 ML IV SCH (15:00)
[2017-06-23] MEDS ORDERED: LORazepam 2 MG/ML VIAL IV ONE ×2 (15:09)
[2017-06-23] MEDS ORDERED: LORazepam 2 MG/ML VIAL ONE (15:11)
--- NOTE | 2017-06-23 15:28 | Internal Med Progress Note ---
Medical - PN: Subj Patient information: Note initiated : 06/23/17 at 3:26 pm Service Date, if different from initiated Date: [] Patient: Lois Guy 81 y/o F admitted on 06/21/17 for Weakness/Pneumonia, Sepsis, UTI. Chief Complaint: [] Interval history: Ms. 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 Presently has no neurological deficit. The patient is brought to the emergency room today because of confusion that has been going on for the last 1 month. History was provided by the patient's daughter patient was unable to provide any meaningful history. She was very confused. According to the daughter, the patient at baseline is quite independent, has memory issues but is able to carry out her activities of daily living. She lives with her . Since the early this month the patient has been not doing so well, she has been confused, she's been having some cough with some expectoration. The patient has been very weak, and has not been eating drinking very well. She has been bedbound. She has had 3 episodes of urinary incontinence. The patient was taken to emergency room at [facility], I believe at 3 separate occasions during this time. She was diagnosed with UTI for the first 2 times, and then they could not find anything abnormal on the which was her last ER visit. They had sent her back home. The patient was therefore brought to the emergency room at [facility] for further evaluation. In the emergency room the patient had a low-grade fever, she was confused and unable to provide any history. She had elevated white blood cell count at 18,900, neutrophils of 79%, hemoglobin of 11.9, platelets 279. He has mild hyperkalemia with potassium of 5.4, acute renal failure with creatinine of 2.2 the urine of 54. Lactic acid is 0.9, bicarbonate is 19. Her liver function tests are normal, total bilirubin is 1.8, AST 68, ALP 119, alkaline phosphatase is 246. Her UA is abnormal positive leukoesterase negative nitrites and few PVCs Patient's had a chest x-ray done which shows right interstitial infiltrate. I reviewed the workup done at [facility], she's had a negative CT abdomen and pelvis done on the . This study was done with contrast. She's had a head CT stand on 06/03/17 and 06/17/17 both of which revealed no acute pathology. She's had 2 x-rays done both of which were negative last x-ray was The patient is being admitted to the hospital for management of sepsis, pneumonia, UTI and multiorgan dysfunction jun 22 patient seen and examined today, no acute overnight events, patient clinically somewhat better labs are improving. The patient was able to provide some answers to direct questioning. Daughter was at bedside. Urine culture positive for Bhargavi IV Diflucan started June 23 Patient seen and examined, no acute overnight events, white blood cell count still elevated slightly wan yesterday. Patient's urine culture is still growing Candidaresults pending. Plan to get a barium swallow done to evaluate for proper consistency of diet and aspiration. Plan to get MRI of the head today given that the patient's symptoms were present even before the pneumonia was diagnosed. It is likely that the patient had Bhargavi UTI which was not picked up on previous urine studies and was untreated so far. She is on IV Diflucan at this point. I believe that the aspiration pneumonitis is likely a complication of her altered mental status rather than the primary pathology Pertinent ROS: unable - Constitutional Vitals: Vital Signs Temp Pulse Resp BP Pulse Ox 98.1 F 69 16 142/65 94 06/23/17 12:00 06/23/17 11:18 06/23/17 12:00 06/23/17 12:00 06/23/17 12:00 Period Temp Pulse Resp BP Sys/Bañuelos Pulse Ox Last 24 Hr 98.1 F-98.9 F 62-90 16-20 93-167/65-126 90-98 Intake and Output 06/23/17 06/23/17 06/23/17 05:59 13:59 21:59 Intake Total 50 / 50 100 / 100 Output Total 625 / 625 Balance -575 / -575 100 / 100 Weight 161 lb 8 oz Patient Weight 06/24/17 05:59 Weight 161 lb 8 oz Intake & Output: Intake & Output 06/23/17 06/23/17 06/23/17 05:59 13:59 21:59 Intake Total 50 / 50 100 / 100 Output Total 625 / 625 Balance -575 / -575 100 / 100 Weight 161 lb 8 oz Intake: IV 50 / 50 100 / 100 Zosyn 2.25 gm In Dextrose 5% in 50 / 50 50 / 50 Water 50 ml @ 100 mls/hr IV Q8H [facility] Rx#:[id number] Output: Urine Catheter Amount 625 / 625 Exam: Constitutional; Afebrile, sometimes uncooperative, confused Neck- Midline trachea, supple Respiratory system: Air Entry equal on both sides, bibasilar crackles, right more than the left. No wheezing noted CVS- Rate rhythm regular, S1,S2 heard, no gallop, no rub. 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 Medical - PN: Obj Da - Labs CBC & Chem 7: 06/23/17 04:10 06/23/17 04:10 Labs: Abnormal Lab Results 06/23/17 06/23/17 06/22/17 04:10 04:10 10:53 WBC 16.5 H RBC 3.80 L Hgb 11.3 L Hct 34.0 L RDW 16.4 H Gran % 84.9 H Lymph % (Auto) 5.2 L Eos % (Auto) Gran # 14.0 H Lymph # (Auto) 0.9 L Eos # (Auto) 1.0 H Seg Neutrophils % Lymphocytes % Metamyelocytes % Potassium Chloride 109 H Carbon Dioxide 19 L BUN 34 H Creatinine Total Bilirubin 1.1 H Direct Bilirubin 0.5 H GGT 293 H AST ALT 75 H Alkaline Phosphatase 153 H NT-Pro-B Natriuret Pep Total Protein 5.6 L Albumin 2.3 L Albumin/Globulin Ratio 0.7 L TSH 9.35 H Urine Occult Blood Ur Leukocyte Esterase Urine RBC Urine WBC Amorphous Crystals Urine Yeast (Budding) 06/22/17 06/22/17 06/21/17 04:00 04:00 19:10 WBC 16.1 H RBC 3.64 L Hgb 10.8 L Hct 32.6 L RDW 16.4 H Gran % 85.4 H Lymph % (Auto) 4.0 L Eos % (Auto) 7.8 H Gran # 13.8 H Lymph # (Auto) 0.6 L Eos # (Auto) 1.3 H Seg Neutrophils % Lymphocytes % Metamyelocytes % Potassium 5.4 H Chloride Carbon Dioxide 20 L 20 L BUN 44 H 50 H Creatinine 1.5 H 1.8 H Total Bilirubin 1.2 H Direct Bilirubin 0.8 H GGT 320 H AST 45 H ALT 88 H Alkaline Phosphatase 177 H NT-Pro-B Natriuret Pep Total Protein 5.6 L Albumin 2.4 L Albumin/Globulin Ratio 0.8 L TSH Urine Occult Blood Ur Leukocyte Esterase Urine RBC Urine WBC Amorphous Crystals Urine Yeast (Budding) 06/21/17 06/21/17 06/21/17 19:00 12:11 12:11 WBC 18.9 H RBC Hgb 11.9 L Hct RDW 15.7 H Gran % Lymph % (Auto) Eos % (Auto) Gran # Lymph # (Auto) Eos # (Auto) Seg Neutrophils % 79 H Lymphocytes % 7 L Metamyelocytes % 1 H Potassium Chloride Carbon Dioxide BUN Creatinine Total Bilirubin Direct Bilirubin GGT AST ALT Alkaline Phosphatase NT-Pro-B Natriuret Pep Total Protein Albumin Albumin/Globulin Ratio TSH Urine Occult Blood 0.03 A 0.03 A Ur Leukocyte Esterase 25 A Urine RBC 8 H Urine WBC 10 H Amorphous Crystals Mod A Urine Yeast (Budding) Many A Many A 06/21/17 06/21/17 12:10 12:10 WBC RBC Hgb Hct RDW Gran % Lymph % (Auto) Eos % (Auto) Gran # Lymph # (Auto) Eos # (Auto) Seg Neutrophils % Lymphocytes % Metamyelocytes % Potassium 5.4 H Chloride Carbon Dioxide 19 L BUN 54 H Creatinine 2.2 H Total Bilirubin 1.8 H Direct Bilirubin GGT AST 68 H ALT 119 H Alkaline Phosphatase 246 H NT-Pro-B Natriuret Pep 3185.0 H Total Protein Albumin Albumin/Globulin Ratio TSH Urine Occult Blood Ur Leukocyte Esterase Urine RBC Urine WBC Amorphous Crystals Urine Yeast (Budding) Meds: Medications Acetaminophen (Tylenol) 650 mg PO Q6HP PRN PRN Reason: PAIN/FEVER > 101 Aspirin (Aspirin) 324 mg CHEWED DAILY [facility] Last Admin: 06/23/17 09:12 Dose: Not Given Atorvastatin Calcium (Lipitor) 40 mg PO HS [facility] Last Admin: 06/22/17 21:30 Dose: Not Given Cyclobenzaprine HCl (Flexeril) 10 mg PO DAILYP PRN PRN Reason: Muscle Spasm Last Admin: 06/21/17 21:55 Dose: 10 mg Dextrose (Dextrose 50%) 0 ml IV UD PRN PRN Reason: Hypoglycemia Diagnostic Test (Pha) (Accu-Chek) 1 each FS ACHS [facility] Last Admin: 06/23/17 12:05 Dose: 1 each Donepezil HCl (Aricept) 10 mg PO HS [facility] Last Admin: 06/22/17 21:30 Dose: Not Given Famotidine (Pepcid) 20 mg IV HS [facility] Last Admin: 06/22/17 21:32 Dose: 20 mg Glucose (Insta-Glucose) 15 gm PO PRN PRN PRN Reason: Hypoglycemia Heparin Sodium (Porcine) (Heparin) 5,000 unit SQ Q12 [facility] Last Admin: 06/23/17 11:02 Dose: 5,000 unit Piperacillin Sod/Tazobactam (Sod 2.25 gm/ Dextrose) 50 mls @ 100 mls/hr IV Q8H [facility] Last Infusion: 06/23/17 06:20 Dose: Infused Fluconazole (Diflucan) 200 mg in 100 mls @ 100 mls/hr IV DAILY [facility] Last Admin: 06/23/17 09:10 Dose: 100 mls/hr Vancomycin HCl 1,000 mg/ (Sodium Chloride) 250 mls @ 250 mls/hr IV DAILY [facility] Last Admin: 06/23/17 11:02 Dose: 250 mls/hr Potassium Chloride/Dextrose/Sod Cl (Dextrose 5%-1/2ns W/20meq Kcl) 1,000 mls @ 75 mls/hr IV .[id number] [facility] Insulin Human Lispro (Humalog) 0 unit SQ ACHS [facility] PRN Reason: Protocol Last Admin: 06/23/17 14:10 Dose: Not Given Levothyroxine Sodium (Synthroid) 100 mcg PO ACB [facility] Last Admin: 06/23/17 09:12 Dose: Not Given Memantine (Namenda) 5 mg PO DAILY [facility] Last Admin: 06/23/17 09:13 Dose: Not Given Naloxone HCl (Narcan) 0.1 mg IV Q2MIN PRN PRN Reason: Opiate Reversal Ondansetron HCl (Zofran) 4 mg IV Q4HP PRN PRN Reason: Nausea And Vomiting Oxybutynin Chloride (Ditropan Xl) 10 mg PO DAILY [facility] Last Admin: 06/23/17 09:12 Dose: Not Given Polyethylene Glycol (Miralax) 17 gm PO DAILYP PRN PRN Reason: CONSTIPATION Sodium Chloride (Saline Flush) 10 ml IV Q8 [facility] Last Admin: 06/23/17 14:10 Dose: 10 ml Vancomycin HCl (Vancomycin Per Pharmacy) 1 order IV UD [facility] Medical - PN: A/P - Time Spent With Patient Total time spent is greater than 50% in coordination of care (as documented) at patient's floor/unit and/or counseling patient: - Narrative A/P Narrative: A/P Sepsis with multi organ dysfunction: agdaagux 2 score of 15, mortality rate of 22 percent, bp low this AM, but improved later, monitor for now. Pt still high risk for mortality. Pneumonia: likely aspiration pneumonia, will treat with hcap coverage given 2 rounds of abx given recently IV vanco, zosyn. day 2 today. Urinary tract infection: Ecoli as per culture in [facility], UA still suggestive of UTI, iv zosyn should cover. Bhargavi positive, diflucan added. await sensitivities Altered mental status/ Septic Encephalopathy: mental status changes were before the patient's acute infection in the lung, she may have had Bhargavi UTI which may explain her change in mental status however I will get an MRI of the head and make sure there is no intracerebral pathology. Abnormal liver function test: Etiology, CT abdomen is neg, USG is reported neg by ER provider, pt has cholestatic picture, likely related to sepsis. Could also be related to antibiotic use recently. LFT trendign down Acute Kidney Injury: likely due to poor oral intake, creatinine is 1.1 today. There also may be a component of sepsis related renal failure and contrast nephropathy related. Dementia: Able to carry out ADL, bad with recent memory but lives independently with . home med resumed. Diastolic heart failure grade 2: clinically dry, recent echo reviewed, has elevated bnp. monitor now. Hypothyroidism: resume synthroid, TSH mildly elevated, possibly due to inability to take oral medications over the last 1 month. Hyperkalemia: resolved Diabetes: hold metformin, sliding scale insulin for now. HTN: Hold diuetrics, hold amlodipien and RYAN inhibitors. BP soft, IV fluids for now. DVT hep sq Diet as per speech therapy Full code for now, pt ok intubation but no cpr . Medical - PN: Qual - VTE Deep Vein Thrombosis/Pulmonary Embolism Present on Admission: No
--- NOTE | 2017-06-23 18:30 | Magnetic Resonance Report ---
CLINICAL INFORMATION: Decreased mental status. History of left frontal lobe infarct COMPARISON: ] MRI - 04/10/2016 TECHNIQUE:Sagittal T1 FLAIR, axial T1 FLAIR, T2 FLAIR propeller, T2 propeller, gradient, diffusion, ADC and coronal T2 weighted images were acquired. FINDINGS: The ventricles, sulci, fissures and cisterns are symmetrically enlarged compatible with mild age-related atrophy. A 6 mm arachnoid cyst over the right parietal convexity is unchanged and insignificant. There no significant extra-axial masses or fluid collections. Moderate low cortical-based infarct in the left frontal lobe near vertex is again noted. There are multiple chronic ischemic foci throughout the cerebral white matter. There is a 4 mm acute nonhemorrhagic lacunar infarct in the precentral gyrus cortex - posterior right frontal lobe near vertex (diffusion image 21. Signal void in intracerebral arteries, extra-axial cranial nerves, pituitary and orbits are normal. There is moderate mucosal thickening in the ethmoid sinuses and mild mucosal thickening in the maxillary sinuses. Sphenoid sinuses and left frontal sinuses show moderate mucosal thickening IMPRESSION: 1. 4 mm acute nonhemorrhagic lacunar infarct in the posterior right frontal cortex near vertex - precentral gyrus 2. Moderate size remote cortical-based infarct in left frontal lobe near vertex 3. Mild atrophy and extensive chronic ischemic changes in the deep cerebral white matter which are similar to prior study over one year ago 4. 6 mm arachnoid cyst over the right frontal convexity - stable and insignificant 5. Moderate ethmoid and mild bilateral maxillary left sphenoid and left frontal sinusitis - new Interpreted and Authenticated by: Linwood Lutz 06/23/17
[2017-06-23] MEDS: DONEPEZIL 10 MG TABLET PO SCH (21:46)
[2017-06-23] MEDS: ATORVASTATIN 20 MG TABLET PO SCH (21:47)
[2017-06-23] MEDS: FAMOTIDINE/PF 20 MG/2 ML VIAL IV SCH (21:51)
[2017-06-24] MEDS: DEXTROSE 5%-1/2NS W/20MEQ KCL 1,000 ML IV SCH ×4 (04:57→22:02)
[2017-06-24] MEDS: PIPERACILLIN SODIUM/TAZOBACTAM 2.25 GM in DEXTROSE 5% IN WATER 50 ML IV SCH ×3 (05:35→22:02)
[2017-06-24] MEDS: 0.9 % SODIUM CHLORIDE 10 ML SYRINGE IV SCH ×4 (05:36→21:25)
[2017-06-24 05:38] LABS: Basophils # (Auto) 0 K/mcL (0.0-0.3); Basophils % (Auto) 0.2 % (0.0-2.0); Eosinophils # (Auto) 1.1 K/mcL (0.0-0.7); Eosinophils % (Auto) 8.9 % (0.0-7.0); Granulocytes % (Auto) 76.2 % (38.0-78.0); Lymphocytes # (Auto) 1.1 K/mcL (1.5-4.8); Lymphocytes % (Auto) 9.5 % (15.5-49.0); Mean Cell Volume 89.2 fL (80.0-100.0); Mean Corpuscular HGB Conc 33.2 g/dL (31.0-36.0); Mean Corpuscular Hemoglobin 29.6 pg (26.0-34.0); Monocytes # (Auto) 0.6 K/mcL (0.1-0.9); Monocytes % (Auto) 5.2 % (1.0-12.0); Platelet Count 296 K/mcL (140-440); Red Cell Distribution Width 16.6 % (11.5-14.5)
[2017-06-24 05:56] LABS: ALT/SGPT 63 U/l (0-40); Albumin 2.2 gm/dL (3.2-5.2); Albumin/Globulin Ratio 0.6 (1.0-2.3); Alkaline Phosphatase 124 U/L (39-117); Bilirubin,Direct 0.4 mg/dL (0.0-0.3); Blood Urea Nitrogen 27 mg/dl (8-23); Gamma Glutamyl Transpeptidase 255 U/L (5-36); Uric Acid 3.5 mg/dL (2.5-8.0)
[2017-06-24] MEDS: OXYBUTYNIN CHLORIDE 5 MG TAB.XL.24H PO SCH (07:13)
[2017-06-24] MEDS: ASPIRIN 81 MG TAB.CHEW CHEWED SCH (07:13)
[2017-06-24] MEDS: LEVOTHYROXINE 100 MCG TABLET PO SCH (07:13)
[2017-06-24] MEDS: MEMANTINE 10 MG TABLET PO SCH (07:14)
[2017-06-24] MEDS: INSULIN LISPRO 1 UNIT/0.01 ML UNIT SQ SCH ×4 (07:21→21:24)
[2017-06-24] MEDS: HEPARIN 5,000 UNIT/ML VIAL SQ SCH (08:54)
[2017-06-24] MEDS: FLUCONAZOLE 200 MG/100 ML BAG IV SCH (08:54)
[2017-06-24] MEDS ORDERED: VANCOMYCIN 1,000 MG in 0.9 % SODIUM CHLORIDE 250 ML IV SCH (10:00)
[2017-06-24] MEDS ORDERED: ONDANSETRON 4 MG/2 ML VIAL IV PRN (12:58)
[2017-06-24] MEDS ORDERED: VANCOMYCIN PER PHARMACY IV SCH (12:58)
[2017-06-24] MEDS ORDERED: DEXTROSE 31 GM ORAL.SUSP PO PRN (12:58)
[2017-06-24] MEDS ORDERED: DEXTROSE 50% 50 ML VIAL IV PRN (12:58)
[2017-06-24] MEDS ORDERED: ACETAMINOPHEN 325 MG TABLET PO PRN (12:58)
[2017-06-24] MEDS ORDERED: POLYETHYLENE GLYCOL 3350 17 GM PACKET PO PRN (12:58)
[2017-06-24] MEDS ORDERED: CYCLOBENZAPRINE 10 MG TABLET PO PRN (12:58)
[2017-06-24] MEDS ORDERED: NALOXONE HCL 0.4 MG/ML VIAL IV PRN (12:58)
--- NOTE | 2017-06-24 13:56 | Internal Med Progress Note ---
Medical - PN: Subj Patient information: Note initiated : 06/24/17 at 1:53 pm Service Date, if different from initiated Date: [] Patient: Lois Guy 81 y/o F admitted on 06/21/17 for Weakness/Pneumonia, Sepsis, UTI. Chief Complaint: [] Interval history: Ms. 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 Presently has no neurological deficit. The patient is brought to the emergency room today because of confusion that has been going on for the last 1 month. History was provided by the patient's daughter patient was unable to provide any meaningful history. She was very confused. According to the daughter, the patient at baseline is quite independent, has memory issues but is able to carry out her activities of daily living. She lives with her . Since the early this month the patient has been not doing so well, she has been confused, she's been having some cough with some expectoration. The patient has been very weak, and has not been eating drinking very well. She has been bedbound. She has had 3 episodes of urinary incontinence. The patient was taken to emergency room at [facility], I believe at 3 separate occasions during this time. She was diagnosed with UTI for the first 2 times, and then they could not find anything abnormal on the which was her last ER visit. They had sent her back home. The patient was therefore brought to the emergency room at [facility] for further evaluation. In the emergency room the patient had a low-grade fever, she was confused and unable to provide any history. She had elevated white blood cell count at 18,900, neutrophils of 79%, hemoglobin of 11.9, platelets 279. He has mild hyperkalemia with potassium of 5.4, acute renal failure with creatinine of 2.2 the urine of 54. Lactic acid is 0.9, bicarbonate is 19. Her liver function tests are normal, total bilirubin is 1.8, AST 68, ALP 119, alkaline phosphatase is 246. Her UA is abnormal positive leukoesterase negative nitrites and few PVCs Patient's had a chest x-ray done which shows right interstitial infiltrate. I reviewed the workup done at [facility], she's had a negative CT abdomen and pelvis done on the . This study was done with contrast. She's had a head CT stand on 06/03/17 and 06/17/17 both of which revealed no acute pathology. She's had 2 x-rays done both of which were negative last x-ray was The patient is being admitted to the hospital for management of sepsis, pneumonia, UTI and multiorgan dysfunction jun 22 patient seen and examined today, no acute overnight events, patient clinically somewhat better labs are improving. The patient was able to provide some answers to direct questioning. Daughter was at bedside. Urine culture positive for Bhargavi IV Diflucan started June 23 Patient seen and examined, no acute overnight events, white blood cell count still elevated slightly wan yesterday. Patient's urine culture is still growing Candidaresults pending. Plan to get a barium swallow done to evaluate for proper consistency of diet and aspiration. Plan to get MRI of the head today given that the patient's symptoms were present even before the pneumonia was diagnosed. It is likely that the patient had Bhargavi UTI which was not picked up on previous urine studies and was untreated so far. She is on IV Diflucan at this point. I believe that the aspiration pneumonitis is likely a complication of her altered mental status rather than the primary pathology June 24 Patient seen and examined, no acute overnight events, she was on oxygen, drowsy , did not answer any of my questions. According to the staff the patient was given Ativan yesterday and according to the patient's home members patient takes a long time to recover from Ativan. MRI of the head showed a very small stroke. The patient remains confused, lap show signs of improvement, remains on IV antibiotics for aspiration pneumonia vancomycin and Zosyn. IV Diflucan for Bhargavi and the UTI. Sensitivities for the candidiasis to pending plan of care reviewed with the patient's and the son-in-law who are at the bedside today patient has been monitored on telemetry for 3 days. Can be transferred to [facility] status Pertinent ROS: unable to do mental status - Constitutional Vitals: Vital Signs Temp Pulse Resp BP Pulse Ox 98.5 F 79 18 164/76 98 06/24/17 12:00 06/24/17 12:00 06/24/17 12:00 06/24/17 12:00 06/24/17 12:00 Period Temp Pulse Resp BP Sys/Bañuelos Pulse Ox Last 24 Hr 97.3 F-98.9 F 60-85 18-20 110-179/59-103 88-98 Intake and Output 06/23/17 06/24/17 06/24/17 21:59 05:59 13:59 Intake Total 50 / 50 1417 / 1417 400 / 400 Output Total Balance 49 / 49 1416 / 1416 400 / 400 Weight 128 lb 9.6 oz Intake & Output: Intake & Output 06/23/17 06/24/17 06/24/17 21:59 05:59 13:59 Intake Total 50 / 50 1417 / 1417 400 / 400 Output Total Balance 49 / 49 1416 / 1416 400 / 400 Weight 128 lb 9.6 oz Intake: IV 50 / 50 1417 / 1417 400 / 400 Dextrose 5%-1/2Ns W/20Meq KCl 1 1000 / 1000 ,000 ml @ 75 mls/hr IV .[id number] JOA[facility]IN Rx#:[id number] Zosyn 2.25 gm In Dextrose 5% in 50 / 50 50 / 50 50 / 50 Water 50 ml @ 100 mls/hr IV Q8H JOAQUIN Rx#:[id number] Vancomycin 1,000 mg In Sodium 250 / 250 250 / 250 Chloride 0.9% 250 ml @ 250 mls/ hr IV Q24H JOAQUNI Rx#:[id number] Oral 0 / 0 0 / 0 Output: Void Amount 0 / 0 # of times incontinent of urine Other: # Voids 0 Exam: Constitutional; Afebrile, rowsy and not in distress Eyes- No icterus, , No periorbital swelling Ears- Ext ear normal, Neck- Midline trachea, supple Respiratory system: Air Entry equal on both sides, no wheezing, no rhonchi.she has conducted breath sounds bilaterally CVS- Rate rhythm regular, S1,S2 heard, no gallop, no rub. Abdomen- Soft nontender abdomen, no organomegaly, no tenderness, no guarding or rigidity, TIP LENGTH CHECKER- AOOx0 drowsy due to the fact likely of Ativan, Medical - PN: Obj Da - Labs CBC & Chem 7: 06/24/17 04:07 06/24/17 04:07 Labs: Abnormal Lab Results 06/24/17 06/24/17 06/23/17 04:07 04:07 04:10 WBC 12.0 H RBC 3.70 L Hgb 11.0 L Hct 33.0 L RDW 16.6 H Gran % Lymph % (Auto) 9.5 L Eos % (Auto) 8.9 H Gran # 9.2 H Lymph # (Auto) 1.1 L Eos # (Auto) 1.1 H Potassium Chloride 109 H Carbon Dioxide 21 L 19 L BUN 27 H 34 H Creatinine Glucose 126 H Total Bilirubin 1.1 H Direct Bilirubin 0.4 H 0.5 H GGT 255 H 293 H AST ALT 63 H 75 H Alkaline Phosphatase 124 H 153 H NT-Pro-B Natriuret Pep Total Protein 5.6 L 5.6 L Albumin 2.2 L 2.3 L Albumin/Globulin Ratio 0.6 L 0.7 L TSH Urine Occult Blood Amorphous Crystals Urine Yeast (Budding) 06/23/17 06/22/17 06/22/17 04:10 10:53 04:00 WBC 16.5 H RBC 3.80 L Hgb 11.3 L Hct 34.0 L RDW 16.4 H Gran % 84.9 H Lymph % (Auto) 5.2 L Eos % (Auto) Gran # 14.0 H Lymph # (Auto) 0.9 L Eos # (Auto) 1.0 H Potassium Chloride Carbon Dioxide 20 L BUN 44 H Creatinine 1.5 H Glucose Total Bilirubin 1.2 H Direct Bilirubin 0.8 H GGT 320 H AST 45 H ALT 88 H Alkaline Phosphatase 177 H NT-Pro-B Natriuret Pep Total Protein 5.6 L Albumin 2.4 L Albumin/Globulin Ratio 0.8 L TSH 9.35 H Urine Occult Blood Amorphous Crystals Urine Yeast (Budding) 06/22/17 06/21/17 06/21/17 04:00 19:10 19:00 WBC 16.1 H RBC 3.64 L Hgb 10.8 L Hct 32.6 L RDW 16.4 H Gran % 85.4 H Lymph % (Auto) 4.0 L Eos % (Auto) 7.8 H Gran # 13.8 H Lymph # (Auto) 0.6 L Eos # (Auto) 1.3 H Potassium 5.4 H Chloride Carbon Dioxide 20 L BUN 50 H Creatinine 1.8 H Glucose Total Bilirubin Direct Bilirubin GGT AST ALT Alkaline Phosphatase NT-Pro-B Natriuret Pep Total Protein Albumin Albumin/Globulin Ratio TSH Urine Occult Blood 0.03 A Amorphous Crystals Mod A Urine Yeast (Budding) Many A 06/21/17 12:10 WBC RBC Hgb Hct RDW Gran % Lymph % (Auto) Eos % (Auto) Gran # Lymph # (Auto) Eos # (Auto) Potassium Chloride Carbon Dioxide BUN Creatinine Glucose Total Bilirubin Direct Bilirubin GGT AST ALT Alkaline Phosphatase NT-Pro-B Natriuret Pep 3185.0 H Total Protein Albumin Albumin/Globulin Ratio TSH Urine Occult Blood Amorphous Crystals Urine Yeast (Budding) Meds: Medications Acetaminophen (Tylenol) 650 mg PO Q6HP PRN PRN Reason: PAIN/FEVER > 101 Aspirin (Aspirin) 324 mg CHEWED DAILY JOAQUIN Atorvastatin Calcium (Lipitor) 40 mg PO HS [facility] Cyclobenzaprine HCl (Flexeril) 10 mg PO DAILYP PRN PRN Reason: Muscle Spasm Dextrose (Dextrose 50%) 0 ml IV UD PRN PRN Reason: Hypoglycemia Diagnostic Test (Pha) (Accu-Chek) 1 each FS ACHS [facility]IN Donepezil HCl (Aricept) 10 mg PO HS [facility]IN Famotidine (Pepcid) 20 mg IV HS [facility]IN Glucose (Insta-Glucose) 15 gm PO PRN PRN PRN Reason: Hypoglycemia Heparin Sodium (Porcine) (Heparin) 5,000 unit SQ Q12 [facility] Potassium Chloride/Dextrose/Sod Cl (Dextrose 5%-1/2ns W/20meq Kcl) 1,000 mls @ 75 mls/hr IV .[id number] [facility] Last Admin: 06/24/17 13:05 Dose: Not Given Fluconazole (Diflucan) 200 mg in 100 mls @ 100 mls/hr IV Q24H [facility] Piperacillin Sod/Tazobactam (Sod 2.25 gm/ Dextrose) 50 mls @ 100 mls/hr IV Q8H [facility] Vancomycin HCl 1,000 mg/ (Sodium Chloride) 250 mls @ 250 mls/hr IV Q24H [facility] Insulin Human Lispro (Humalog) 0 unit SQ ACHS [facility] PRN Reason: Protocol Levothyroxine Sodium (Synthroid) 100 mcg PO ACB [facility] Memantine (Namenda) 5 mg PO DAILY [facility] Naloxone HCl (Narcan) 0.1 mg IV Q2MIN PRN PRN Reason: Opiate Reversal Ondansetron HCl (Zofran) 4 mg IV Q4HP PRN PRN Reason: Nausea And Vomiting Oxybutynin Chloride (Ditropan Xl) 10 mg PO DAILY [facility] Polyethylene Glycol (Miralax) 17 gm PO DAILYP PRN PRN Reason: CONSTIPATION Sodium Chloride (Saline Flush) 10 ml IV Q8 [facility] Last Admin: 06/24/17 13:05 Dose: Not Given Vancomycin HCl (Vancomycin Per Pharmacy) 1 order IV UD [facility] Medical - PN: A/P - Time Spent With Patient Total time spent is greater than 50% in coordination of care (as documented) at patient's floor/unit and/or counseling patient: - Narrative A/P Narrative: A/P Sepsis with multi organ dysfunction: port gamble 2 score of 15, mortality rate of 22 percent, bp low this AM, but improved later, monitor for now. Pt still high risk for mortality. Pneumonia: likely aspiration pneumonia, will treat with hcap coverage given 2 rounds of abx given recently IV vanco, zosyn. day 3 today. Urinary tract infection: Ecoli as per culture in [facility], UA still suggestive of UTI, iv zosyn should cover. Bharagvi positive, diflucan added. await sensitivities Altered mental status/ Septic Encephalopathy: mental status changes were before the patient's acute infection in the lung, she may have had Bhargavi UTI which may experimental status, presently on Diflucan. MRI shows a very small stroke, we will get echo and a carotid DOPPLER Abnormal liver function test: Etiology, CT abdomen is neg, USG is reported neg by ER provider, pt has cholestatic picture, likely related to sepsis. Could also be related to antibiotic use recently. LFT trendign down Acute Kidney Injury: likely due to poor oral intake, creatinine is 1.0 today. There also may be a component of sepsis related renal failure and contrast nephropathy related. Dementia: Able to carry out ADL, bad with recent memory but lives independently with . home med resumed. Diastolic heart failure grade 2: clinically dry, recent echo reviewed, has elevated bnp. monitor now. Hypothyroidism: resume synthroid, TSH mildly elevated, possibly due to inability to take oral medications over the last 1 month. Hyperkalemia: resolved Diabetes: hold metformin, sliding scale insulin for now. HTN: Hold diuetrics, hold amlodipien and RYAN inhibitors. BP soft, IV fluids for now. DVT hep sq Diet as per speech therapy, patient needs a barium swallow evaluation done to evaluate her speech function and swallow function. Given her drowsiness this has to be postponed Full code for now, pt ok intubation but no cpr . Medical - PN: Qual - VTE Deep Vein Thrombosis/Pulmonary Embolism Present on Admission: No
--- NOTE | 2017-06-24 16:05 | Ultrasound Report ---
CLINICAL INFORMATION: CVA COMPARISON: None. TECHNIQUE: Spectral Doppler velocity measurements were obtained in the proximal, mid and distal common and internal carotid, both vertebral and proximal external carotid arteries bilaterally. Supplemental color and power Doppler imaging was also obtained to optimize stenosis detection. In reporting, any internal carotid stenosis was indirectly quantified comparing the distal internal carotid velocity. For ratio comparison, the internal carotid artery, at the level of stenosis, was utilized in the numerator and the normal distal internal carotid artery velocity was utilized as the denominator. Velocities are validated with angiographic measurements extrapolated from diameter data - as defined by the Society of Radiologists in Ultrasound Consensus Conference .Radiology 2003; 229; 340 - 346. FINDINGS: See worksheet by the technologist for velocities in PACS IMPRESSION: Both common, internal and external carotid arteries are widely patent. There is mild uniform intimal thickening in both carotid bifurcations. Antegrade flow present in both vertebral arteries Please correlate with CTA CT Angiography or MRA MR Angiography if surgery is contemplated. Interpreted and Authenticated by: Linwood Lutz 06/24/17
[2017-06-24] MEDS ORDERED: ATORVASTATIN 20 MG TABLET PO SCH (21:00)
[2017-06-24] MEDS ORDERED: HEPARIN 5,000 UNIT/ML VIAL SQ SCH (21:00)
[2017-06-24] MEDS ORDERED: FAMOTIDINE/PF 20 MG/2 ML VIAL IV SCH (21:00)
[2017-06-24] MEDS ORDERED: DONEPEZIL 10 MG TABLET PO SCH (21:00)
[2017-06-25] MEDS ORDERED: FUROSEMIDE 20 MG/2 ML VIAL IV ONE ×2 (03:49→03:59)
--- NOTE | 2017-06-25 04:19 | Internal Med Progress Note ---
Medical - PN: Subj Patient information: Note initiated : 06/25/17 at 4:13 am Service Date, if different from initiated Date: [] Patient: Lois Guy 81 y/o F admitted on 06/21/17 for Weakness/Pneumonia, Sepsis, UTI. Interval history: Ms. 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 Presently has no neurological deficit. The patient is brought to the emergency room today because of confusion that has been going on for the last 1 month. History was provided by the patient's daughter patient was unable to provide any meaningful history. She was very confused. According to the daughter, the patient at baseline is quite independent, has memory issues but is able to carry out her activities of daily living. She lives with her . Since the early this month the patient has been not doing so well, she has been confused, she's been having some cough with some expectoration. The patient has been very weak, and has not been eating drinking very well. She has been bedbound. She has had 3 episodes of urinary incontinence. The patient was taken to emergency room at [place] [facility], I believe at 3 separate occasions during this time. She was diagnosed with UTI for the first 2 times, and then they could not find anything abnormal on the which was her last ER visit. They had sent her back home. The patient was therefore brought to the emergency room at [facility] for further evaluation. In the emergency room the patient had a low-grade fever, she was confused and unable to provide any history. She had elevated white blood cell count at 18,900, neutrophils of 79%, hemoglobin of 11.9, platelets 279. He has mild hyperkalemia with potassium of 5.4, acute renal failure with creatinine of 2.2 the urine of 54. Lactic acid is 0.9, bicarbonate is 19. Her liver function tests are normal, total bilirubin is 1.8, AST 68, ALP 119, alkaline phosphatase is 246. Her UA is abnormal positive leukoesterase negative nitrites and few PVCs Patient's had a chest x-ray done which shows right interstitial infiltrate. I reviewed the workup done at [facility], she's had a negative CT abdomen and pelvis done on the . This study was done with contrast. She's had a head CT stand on 06/03/17 and 06/17/17 both of which revealed no acute pathology. She's had 2 x-rays done both of which were negative last x-ray was The patient is being admitted to the hospital for management of sepsis, pneumonia, UTI and multiorgan dysfunction jun 22 patient seen and examined today, no acute overnight events, patient clinically somewhat better labs are improving. The patient was able to provide some answers to direct questioning. Daughter was at bedside. Urine culture positive for Bhargavi IV Diflucan started June 23 Patient seen and examined, no acute overnight events, white blood cell count still elevated slightly wan yesterday. Patient's urine culture is still growing Candidaresults pending. Plan to get a barium swallow done to evaluate for proper consistency of diet and aspiration. Plan to get MRI of the head today given that the patient's symptoms were present even before the pneumonia was diagnosed. It is likely that the patient had Bhargavi UTI which was not picked up on previous urine studies and was untreated so far. She is on IV Diflucan at this point. I believe that the aspiration pneumonitis is likely a complication of her altered mental status rather than the primary pathology June 24 Patient seen and examined, no acute overnight events, she was on oxygen, drowsy , did not answer any of my questions. According to the staff the patient was given Ativan yesterday and according to the patient's home members patient takes a long time to recover from Ativan. MRI of the head showed a very small stroke. The patient remains confused, lap show signs of improvement, remains on IV antibiotics for aspiration pneumonia vancomycin and Zosyn. IV Diflucan for Bhargavi and the UTI. Sensitivities for the candidiasis to pending plan of care reviewed with the patient's and the son-in-law who are at the bedside today patient has been monitored on telemetry for 3 days. Can be transferred to [facility] status Jun 25 Overnight developed acute SOB a/w hypoxia and hypercapnia. 97.7 127/98 101 I/O: ? due to urinary incontinence No CP. No new or worsening cough Mild resp distress Lungs with few rales CXR worsening infiltrates, diffuse c/w CHF ECG: pending - Constitutional Vitals: Vital Signs Temp Pulse Resp BP Pulse Ox 97.7 F 67 23 H 127/89 93 06/25/17 00:00 06/25/17 00:00 06/25/17 00:00 06/25/17 00:00 06/25/17 00:00 Period Temp Pulse Resp BP Sys/Bañuelos Pulse Ox Last 24 Hr 97.7 F-98.7 F 67-80 18-23 127-179/76-99 93-98 Intake and Output 06/24/17 06/24/17 06/25/17 13:59 21:59 05:59 Intake Total 400 / 400 50 / 50 50 / 50 Output Total Balance 400 / 400 44 / 44 49 / 49 Weight 159 lb 12.8 oz Patient Weight 06/25/17 05:59 Weight 159 lb 12.8 oz Intake & Output: Intake & Output 06/24/17 06/24/17 06/25/17 13:59 21:59 05:59 Intake Total 400 / 400 50 / 50 50 / 50 Output Total Balance 400 / 400 44 / 44 49 / 49 Weight 159 lb 12.8 oz Intake: IV 400 / 400 50 / 50 50 / 50 Zosyn 2.25 gm In Dextrose 5% in 50 / 50 50 / 50 50 / 50 Water 50 ml @ 100 mls/hr IV Q8H [facility] Rx#:[id number] Vancomycin 1,000 mg In Sodium 250 / 250 Chloride 0.9% 250 ml @ 250 mls/ hr IV Q24H [facility] Rx#:[id number] Output: # of times incontinent of urine General appearance: average body habitus, mild distress - Respiratory Respiratory exam: Present: rales - Cardiovascular Cardiovascular exam: Present: normal rate and rhythm - GI/Abdominal GI/Abdominal exam: Present: normal bowel sounds, soft - Extremities Exam Extremities exam: Present: normal inspection Medical - PN: Obj Da - Labs CBC & Chem 7: 06/24/17 04:07 06/24/17 04:07 Labs: Abnormal Lab Results 06/24/17 06/24/17 06/23/17 04:07 04:07 04:10 WBC 12.0 H RBC 3.70 L Hgb 11.0 L Hct 33.0 L RDW 16.6 H Gran % Lymph % (Auto) 9.5 L Eos % (Auto) 8.9 H Gran # 9.2 H Lymph # (Auto) 1.1 L Eos # (Auto) 1.1 H Chloride 109 H Carbon Dioxide 21 L 19 L BUN 27 H 34 H Creatinine Glucose 126 H Total Bilirubin 1.1 H Direct Bilirubin 0.4 H 0.5 H GGT 255 H 293 H AST ALT 63 H 75 H Alkaline Phosphatase 124 H 153 H Total Protein 5.6 L 5.6 L Albumin 2.2 L 2.3 L Albumin/Globulin Ratio 0.6 L 0.7 L TSH 06/23/17 06/22/17 06/22/17 04:10 10:53 04:00 WBC 16.5 H RBC 3.80 L Hgb 11.3 L Hct 34.0 L RDW 16.4 H Gran % 84.9 H Lymph % (Auto) 5.2 L Eos % (Auto) Gran # 14.0 H Lymph # (Auto) 0.9 L Eos # (Auto) 1.0 H Chloride Carbon Dioxide 20 L BUN 44 H Creatinine 1.5 H Glucose Total Bilirubin 1.2 H Direct Bilirubin 0.8 H GGT 320 H AST 45 H ALT 88 H Alkaline Phosphatase 177 H Total Protein 5.6 L Albumin 2.4 L Albumin/Globulin Ratio 0.8 L TSH 9.35 H 06/22/17 04:00 WBC 16.1 H RBC 3.64 L Hgb 10.8 L Hct 32.6 L RDW 16.4 H Gran % 85.4 H Lymph % (Auto) 4.0 L Eos % (Auto) 7.8 H Gran # 13.8 H Lymph # (Auto) 0.6 L Eos # (Auto) 1.3 H Chloride Carbon Dioxide BUN Creatinine Glucose Total Bilirubin Direct Bilirubin GGT AST ALT Alkaline Phosphatase Total Protein Albumin Albumin/Globulin Ratio TSH Meds: Medications Acetaminophen (Tylenol) 650 mg PO Q6HP PRN PRN Reason: PAIN/FEVER > 101 Aspirin (Aspirin) 324 mg CHEWED DAILY [facility] Atorvastatin Calcium (Lipitor) 40 mg PO HS [facility] Last Admin: 06/24/17 21:25 Dose: Not Given Cyclobenzaprine HCl (Flexeril) 10 mg PO DAILYP PRN PRN Reason: Muscle Spasm Dextrose (Dextrose 50%) 0 ml IV UD PRN PRN Reason: Hypoglycemia Diagnostic Test (Pha) (Accu-Chek) 1 each FS ACHS [facility] Last Admin: 06/24/17 21:23 Dose: 1 each Donepezil HCl (Aricept) 10 mg PO HS [facility] Last Admin: 06/24/17 21:24 Dose: Not Given Famotidine (Pepcid) 20 mg IV HS [facility] Last Admin: 06/24/17 21:23 Dose: 20 mg Furosemide (Lasix) 20 mg IV ONCE ONE Stop: 06/25/17 03:50 Glucose (Insta-Glucose) 15 gm PO PRN PRN PRN Reason: Hypoglycemia Heparin Sodium (Porcine) (Heparin) 5,000 unit SQ Q12 [facility] Last Admin: 06/24/17 21:23 Dose: 5,000 unit Fluconazole (Diflucan) 200 mg in 100 mls @ 100 mls/hr IV Q24H [facility] Piperacillin Sod/Tazobactam (Sod 2.25 gm/ Dextrose) 50 mls @ 100 mls/hr IV Q8H [facility] Last Infusion: 06/24/17 23:51 Dose: Infused Vancomycin HCl 1,000 mg/ (Sodium Chloride) 250 mls @ 250 mls/hr IV Q24H [facility] Insulin Human Lispro (Humalog) 0 unit SQ ACHS [facility] PRN Reason: Protocol Last Admin: 06/24/17 21:24 Dose: Not Given Levothyroxine Sodium (Synthroid) 100 mcg PO ACB [facility] Memantine (Namenda) 5 mg PO DAILY [facility] Morphine Sulfate (Morphine) 1 mg IV Q4HP PRN PRN Reason: Dyspnea Naloxone HCl (Narcan) 0.1 mg IV Q2MIN PRN PRN Reason: Opiate Reversal Ondansetron HCl (Zofran) 4 mg IV Q4HP PRN PRN Reason: Nausea And Vomiting Oxybutynin Chloride (Ditropan Xl) 10 mg PO DAILY [facility] Polyethylene Glycol (Miralax) 17 gm PO DAILYP PRN PRN Reason: CONSTIPATION Sodium Chloride (Saline Flush) 10 ml IV Q8 [facility] Last Admin: 06/24/17 21:25 Dose: Not Given Vancomycin HCl (Vancomycin Per Pharmacy) 1 order IV UD [facility] - Imaging and cardiology Chest x-ray Additional comments: diffuse infiltrates c/w CHF - ABG Interpretation Interpretation: respiratory acidosis, metabolic acidosis Medical - PN: A/P - Time Spent With Patient Total time spent is greater than 50% in coordination of care (as documented) at patient's floor/unit and/or counseling patient: Greater than 35 minutes - Narrative A/P Narrative: A/P Sepsis with multi organ dysfunction: [place] 2 score of 15, mortality rate of 22 percent, bp low this AM, but improved later, monitor for now. Pt still high risk for mortality. Pneumonia: likely aspiration pneumonia, will treat with hcap coverage given 2 rounds of abx given recently IV vanco, zosyn. day 4 today. MRSA screen neg. Will discontinue Vancomycin 06/25 Urinary tract infection: Ecoli as per culture in [facility], UA still suggestive of UTI, iv zosyn should cover. Bhargavi positive, diflucan added. await sensitivities Altered mental status/ Septic Encephalopathy: mental status changes were before the patient's acute infection in the lung, she may have had Bhargavi UTI which may experimental status, presently on Diflucan. MRI shows a very small stroke, we will get echo and a carotid DOPPLER Abnormal liver function test: Etiology, CT abdomen is neg, USG is reported neg by ER provider, pt has cholestatic picture, likely related to sepsis. Could also be related to antibiotic use recently. LFT trending down Acute Kidney Injury: likely due to poor oral intake, creatinine is 1.0 today. There also may be a component of sepsis related renal failure and contrast nephropathy related. Dementia: Able to carry out ADL, bad with recent memory but lives independently with . home med resumed. Diastolic heart failure grade 2: clinically dry, recent echo reviewed, has elevated bnp. monitor now. Hypothyroidism: resume synthroid, TSH mildly elevated, possibly due to inability to take oral medications over the last 1 month. Hyperkalemia: resolved Diabetes: hold metformin, sliding scale insulin for now. HTN: r/o diuretics, RYAN Pulmonary edema 06/25: lasix, BiPAP, discontinue IVF, RYAN inh. Transfer to telemetry. DVT hep sc Diet as per speech therapy, patient needs a barium swallow evaluation done to evaluate her speech function and swallow function. Given her drowsiness this has to be postponed Full code for now, pt ok intubation but no cpr . Medical - PN: Qual - VTE Deep Vein Thrombosis/Pulmonary Embolism Present on Admission: No
[2017-06-25 04:22] LABS: Basophils # (Auto) 0 K/mcL (0.0-0.3); Basophils % (Auto) 0.3 % (0.0-2.0); Eosinophils # (Auto) 0.6 K/mcL (0.0-0.7); Eosinophils % (Auto) 4.6 % (0.0-7.0); Mean Cell Volume 89.6 fL (80.0-100.0); Mean Corpuscular HGB Conc 32.4 g/dL (31.0-36.0); Monocytes # (Auto) 0.7 K/mcL (0.1-0.9); Monocytes % (Auto) 5.1 % (1.0-12.0); Platelet Count 344 K/mcL (140-440); Red Cell Distribution Width 16.2 % (11.5-14.5)
[2017-06-25 04:34] LABS: Blood Urea Nitrogen 18 mg/dl (8-23)
[2017-06-25] MEDS: PIPERACILLIN SODIUM/TAZOBACTAM 2.25 GM in DEXTROSE 5% IN WATER 50 ML IV SCH ×3 (04:48→22:28)
[2017-06-25] MEDS ORDERED: ACETAMINOPHEN 325 MG TABLET PO PRN (04:49)
[2017-06-25] MEDS ORDERED: NALOXONE HCL 0.4 MG/ML VIAL IV PRN (04:49)
[2017-06-25] MEDS ORDERED: CYCLOBENZAPRINE 10 MG TABLET PO PRN (04:49)
[2017-06-25] MEDS ORDERED: POLYETHYLENE GLYCOL 3350 17 GM PACKET PO PRN (04:49)
[2017-06-25] MEDS ORDERED: ONDANSETRON 4 MG/2 ML VIAL IV PRN (04:49)
[2017-06-25] MEDS ORDERED: DEXTROSE 50% 50 ML VIAL IV PRN (04:49)
[2017-06-25] MEDS ORDERED: DEXTROSE 31 GM ORAL.SUSP PO PRN (04:49)
[2017-06-25] MEDS ORDERED: MAGNESIUM SULFATE 2 GM/50 ML BAG IV ONE (06:52)
[2017-06-25] MEDS: DEXTROSE 5%-1/2NS W/20MEQ KCL 1,000 ML IV SCH (07:02)
--- NOTE | 2017-06-25 07:18 | XRay Report ---
CLINICAL INFORMATION: Shortness of breath COMPARISON: 06/21/2017 FINDINGS: The heart is moderately enlarged - increased. Mediastinum is unremarkable. Pulmonary vessels are markedly congested and there is marked interstitial edema throughout both lungs. Small bilateral pleural effusions appreciated. No definite infiltrate IMPRESSION: Severe CHF Interpreted and Authenticated by: Linwood Lutz 06/25/17
[2017-06-25] MEDS ORDERED: LEVOTHYROXINE 100 MCG TABLET PO SCH (07:30)
[2017-06-25] MEDS ORDERED: FUROSEMIDE 40 MG/4 ML VIAL IV ONE (08:09)
[2017-06-25] MEDS: 0.9 % SODIUM CHLORIDE 10 ML SYRINGE IV SCH ×3 (08:29→22:28)
[2017-06-25] MEDS: LEVOTHYROXINE 100 MCG TABLET PO SCH (08:30)
[2017-06-25] MEDS ORDERED: OXYBUTYNIN CHLORIDE 5 MG TAB.XL.24H PO SCH (09:00)
[2017-06-25] MEDS ORDERED: MEMANTINE 10 MG TABLET PO SCH (09:00)
[2017-06-25] MEDS ORDERED: ASPIRIN 81 MG TAB.CHEW CHEWED SCH (09:00)
[2017-06-25] MEDS ORDERED: FLUCONAZOLE 200 MG/100 ML BAG IV SCH (09:00)
[2017-06-25] MEDS: INSULIN LISPRO 1 UNIT/0.01 ML UNIT SQ SCH ×4 (09:39→22:27)
[2017-06-25] MEDS: ASPIRIN 81 MG TAB.CHEW CHEWED SCH (09:39)
[2017-06-25] MEDS: LISINOPRIL 5 MG TABLET PO SCH (09:40)
[2017-06-25] MEDS: MEMANTINE 10 MG TABLET PO SCH (09:40)
[2017-06-25] MEDS: OXYBUTYNIN CHLORIDE 5 MG TAB.XL.24H PO SCH (09:40)
[2017-06-25] MEDS: HEPARIN 5,000 UNIT/ML VIAL SQ SCH ×2 (09:47→22:08)
[2017-06-25] MEDS: FLUCONAZOLE 200 MG/100 ML BAG IV SCH (09:48)
[2017-06-25] MEDS ORDERED: VANCOMYCIN 1,000 MG in 0.9 % SODIUM CHLORIDE 250 ML IV SCH (10:00)
[2017-06-25] MEDS: FAMOTIDINE/PF 20 MG/2 ML VIAL IV SCH (22:08)
[2017-06-25] MEDS: DONEPEZIL 10 MG TABLET PO SCH (22:10)
[2017-06-25] MEDS: ATORVASTATIN 20 MG TABLET PO SCH (22:28)
[2017-06-26 05:14] LABS: Basophils # (Auto) 0 K/mcL (0.0-0.3); Basophils % (Auto) 0.4 % (0.0-2.0); Eosinophils # (Auto) 0.4 K/mcL (0.0-0.7); Eosinophils % (Auto) 3.1 % (0.0-7.0); Lymphocytes # (Auto) 1.9 K/mcL (1.5-4.8); Lymphocytes % (Auto) 16.1 % (15.5-49.0); Mean Cell Volume 89.3 fL (80.0-100.0); Mean Corpuscular Hemoglobin 29.4 pg (26.0-34.0); Monocytes # (Auto) 0.6 K/mcL (0.1-0.9); Monocytes % (Auto) 5.4 % (1.0-12.0); Platelet Count 395 K/mcL (140-440); RBC 4.05 M/mcL (4.00-5.20); Red Cell Distribution Width 16.4 % (11.5-14.5)
[2017-06-26] MEDS ORDERED: FUROSEMIDE 40 MG/4 ML VIAL IV ONE (05:33)
[2017-06-26] MEDS: PIPERACILLIN SODIUM/TAZOBACTAM 2.25 GM in DEXTROSE 5% IN WATER 50 ML IV SCH ×3 (05:36→21:24)
[2017-06-26] MEDS: 0.9 % SODIUM CHLORIDE 10 ML SYRINGE IV SCH ×3 (05:37→21:23)
[2017-06-26] MEDS: FUROSEMIDE 40 MG/4 ML VIAL IV SCH ×3 (05:38→09:35)
[2017-06-26 05:47] LABS: Albumin 2.6 gm/dL (3.2-5.2)
[2017-06-26] MEDS: INSULIN LISPRO 1 UNIT/0.01 ML UNIT SQ SCH ×4 (07:14→21:18)
[2017-06-26] MEDS: LEVOTHYROXINE 100 MCG TABLET PO SCH (07:15)
[2017-06-26] MEDS ORDERED: MAGNESIUM SULFATE 8.12 MEQ/2 ML VIAL IV ONE (07:15)
[2017-06-26] MEDS ORDERED: WATER IV ONE (08:30)
[2017-06-26] MEDS ORDERED: DEXTROSE 5% IV ONE (08:30)
[2017-06-26] MEDS ORDERED: MAGNESIUM SULFATE IV ONE (08:30)
[2017-06-26] MEDS: FLUCONAZOLE 200 MG/100 ML BAG IV SCH (09:00)
[2017-06-26] MEDS: ASPIRIN 81 MG TAB.CHEW CHEWED SCH (09:18)
[2017-06-26] MEDS: OXYBUTYNIN CHLORIDE 5 MG TAB.XL.24H PO SCH (09:19)
[2017-06-26] MEDS: MEMANTINE 10 MG TABLET PO SCH (09:20)
[2017-06-26] MEDS: LISINOPRIL 5 MG TABLET PO SCH (09:22)
[2017-06-26] MEDS: HEPARIN 5,000 UNIT/ML VIAL SQ SCH ×2 (09:27→21:23)
[2017-06-26] MEDS: ATORVASTATIN 20 MG TABLET PO SCH (21:19)
[2017-06-26] MEDS: DONEPEZIL 10 MG TABLET PO SCH (21:19)
[2017-06-26] MEDS: FAMOTIDINE/PF 20 MG/2 ML VIAL IV SCH (21:23)
--- NOTE | 2017-06-26 22:11 | Internal Med Progress Note ---
Medical - PN: Subj Patient information: Note initiated : 06/26/17 at 10:07 pm Service Date, if different from initiated Date: [] Patient: Lois Guy 81 y/o F admitted on 06/21/17 for Weakness/Pneumonia, Sepsis, UTI. Interval history: Ms. 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 Presently has no neurological deficit. The patient is brought to the emergency room today because of confusion that has been going on for the last 1 month. History was provided by the patient's daughter patient was unable to provide any meaningful history. She was very confused. According to the daughter, the patient at baseline is quite independent, has memory issues but is able to carry out her activities of daily living. She lives with her . Since the early this month the patient has been not doing so well, she has been confused, she's been having some cough with some expectoration. The patient has been very weak, and has not been eating drinking very well. She has been bedbound. She has had 3 episodes of urinary incontinence. The patient was taken to emergency room at [facility], I believe at 3 separate occasions during this time. She was diagnosed with UTI for the first 2 times, and then they could not find anything abnormal on the which was her last ER visit. They had sent her back home. The patient was therefore brought to the emergency room at [facility] for further evaluation. In the emergency room the patient had a low-grade fever, she was confused and unable to provide any history. She had elevated white blood cell count at 18,900, neutrophils of 79%, hemoglobin of 11.9, platelets 279. He has mild hyperkalemia with potassium of 5.4, acute renal failure with creatinine of 2.2 the urine of 54. Lactic acid is 0.9, bicarbonate is 19. Her liver function tests are normal, total bilirubin is 1.8, AST 68, ALP 119, alkaline phosphatase is 246. Her UA is abnormal positive leukoesterase negative nitrites and few PVCs Patient's had a chest x-ray done which shows right interstitial infiltrate. I reviewed the workup done at [facility], she's had a negative CT abdomen and pelvis done on the . This study was done with contrast. She's had a head CT stand on 06/03/17 and 06/17/17 both of which revealed no acute pathology. She's had 2 x-rays done both of which were negative last x-ray was The patient is being admitted to the hospital for management of sepsis, pneumonia, UTI and multiorgan dysfunction jun 22 patient seen and examined today, no acute overnight events, patient clinically somewhat better labs are improving. The patient was able to provide some answers to direct questioning. Daughter was at bedside. Urine culture positive for Bhargavi IV Diflucan started June 23 Patient seen and examined, no acute overnight events, white blood cell count still elevated slightly wan yesterday. Patient's urine culture is still growing Candidaresults pending. Plan to get a barium swallow done to evaluate for proper consistency of diet and aspiration. Plan to get MRI of the head today given that the patient's symptoms were present even before the pneumonia was diagnosed. It is likely that the patient had Bhargavi UTI which was not picked up on previous urine studies and was untreated so far. She is on IV Diflucan at this point. I believe that the aspiration pneumonitis is likely a complication of her altered mental status rather than the primary pathology June 24 Patient seen and examined, no acute overnight events, she was on oxygen, drowsy , did not answer any of my questions. According to the staff the patient was given Ativan yesterday and according to the patient's home members patient takes a long time to recover from Ativan. MRI of the head showed a very small stroke. The patient remains confused, lap show signs of improvement, remains on IV antibiotics for aspiration pneumonia vancomycin and Zosyn. IV Diflucan for Bhargavi and the UTI. Sensitivities for the candidiasis to pending plan of care reviewed with the patient's and the son-in-law who are at the bedside today patient has been monitored on telemetry for 3 days. Can be transferred to [facility] status Jun 25 Overnight developed acute SOB a/w hypoxia and hypercapnia. 97.7 127/98 101 I/O: ? due to urinary incontinence No CP. No new or worsening cough Mild resp distress Lungs with few rales CXR worsening infiltrates, diffuse c/w CHF June 26: Good diuresis with Lasix. Less supplemental O2 requirement. - Constitutional Vitals: Vital Signs Temp Pulse Resp BP Pulse Ox 97.8 F 91 H 19 129/70 96 06/26/17 20:01 03/01/18 20:32 06/26/17 20:32 06/26/17 20:01 06/26/17 20:32 Period Temp Pulse Resp BP Sys/Bañuelos Pulse Ox Last 24 Hr 97.5 F-99.0 F 50-91 9-26 99-134/63-83 91-98 Intake and Output 06/26/17 06/26/17 06/27/17 13:59 21:59 05:59 Intake Total 204 / 204 50 / 50 Output Total 950 / 950 825 / 825 Balance -746 / -746 -775 / -775 Weight 141 lb 12.8 oz Patient Weight 06/27/17 05:59 Weight 141 lb 12.8 oz Intake & Output: Intake & Output 06/26/17 06/26/17 06/27/17 13:59 21:59 05:59 Intake Total 204 / 204 50 / 50 Output Total 950 / 950 825 / 825 Balance -746 / -746 -775 / -775 Weight 141 lb 12.8 oz Intake: IV 50 / 50 Magnesium Sulfate 16.24 Meq In 54 / 54 Dextrose 5% in Water 50 ml @ 54 mls/hr IV ONCE ONE Rx#: [id number] Zosyn 2.25 gm In Dextrose 5% in 50 / 50 50 / 50 Water 50 ml @ 100 mls/hr IV Q8H [facility] Rx#:[id number] Output: Urine Catheter Amount 950 / 950 825 / 825 General appearance: no acute distress - Respiratory Respiratory exam: Present: decreased breath sounds - Cardiovascular Cardiovascular exam: Present: normal rate and rhythm - GI/Abdominal GI/Abdominal exam: Present: normal bowel sounds, soft - Extremities Exam Extremities exam: Present: normal inspection. Absent: pedal edema Medical - PN: Obj Da - Labs CBC & Chem 7: 06/26/17 03:30 06/26/17 03:30 Labs: Abnormal Lab Results 06/26/17 06/26/17 06/25/17 03:30 03:30 18:11 WBC 11.7 H RBC Hgb 11.9 L Hct RDW 16.4 H Lymph % (Auto) Eos % (Auto) Gran # 8.8 H Lymph # (Auto) Eos # (Auto) Carbon Dioxide BUN Creatinine 1.3 H Glucose Phosphorus 4.8 H Magnesium Direct Bilirubin GGT ALT Alkaline Phosphatase Troponin T 0.07 H* Total Protein Albumin 2.6 L Albumin/Globulin Ratio NT-Pro-B Natriuret Pep 03508.0 H 06/25/17 06/25/17 06/25/17 12:02 03:45 03:40 WBC 13.3 H RBC Hgb Hct RDW 16.2 H Lymph % (Auto) 15.0 L Eos % (Auto) Gran # 10.0 H Lymph # (Auto) Eos # (Auto) Carbon Dioxide BUN Creatinine Glucose Phosphorus Magnesium Direct Bilirubin GGT ALT Alkaline Phosphatase Troponin T 0.06 H* 0.06 H* Total Protein Albumin Albumin/Globulin Ratio NT-Pro-B Natriuret Pep 06/25/17 06/24/17 06/24/17 03:35 04:07 04:07 WBC 12.0 H RBC 3.70 L Hgb 11.0 L Hct 33.0 L RDW 16.6 H Lymph % (Auto) 9.5 L Eos % (Auto) 8.9 H Gran # 9.2 H Lymph # (Auto) 1.1 L Eos # (Auto) 1.1 H Carbon Dioxide 15 L 21 L BUN 27 H Creatinine Glucose 248 H 126 H Phosphorus Magnesium 1.5 L Direct Bilirubin 0.4 H GGT 255 H ALT 63 H Alkaline Phosphatase 124 H Troponin T Total Protein 5.6 L Albumin 2.2 L Albumin/Globulin Ratio 0.6 L NT-Pro-B Natriuret Pep Meds: Medications Acetaminophen (Tylenol) 650 mg PO Q6HP PRN PRN Reason: PAIN/FEVER > 101 Aspirin (Aspirin) 324 mg CHEWED DAILY [facility] Last Admin: 06/26/17 09:18 Dose: Not Given Atorvastatin Calcium (Lipitor) 40 mg PO [facility] Last Admin: 06/26/17 21:19 Dose: Not Given Cyclobenzaprine HCl (Flexeril) 10 mg PO DAILYP PRN PRN Reason: Muscle Spasm Dextrose (Dextrose 50%) 0 ml IV UD PRN PRN Reason: Hypoglycemia Diagnostic Test (Pha) (Accu-Chek) 1 each FS ACHS [facility] Last Admin: 06/26/17 21:17 Dose: 1 each Donepezil HCl (Aricept) 10 mg PO HS [facility] Last Admin: 06/26/17 21:19 Dose: Not Given Famotidine (Pepcid) 20 mg IV [facility] Last Admin: 03/01/18 21:23 Dose: 20 mg Furosemide (Lasix) 40 mg IV DAILY [facility] Last Admin: 06/26/17 09:35 Dose: Not Given Glucose (Insta-Glucose) 15 gm PO PRN PRN PRN Reason: Hypoglycemia Heparin Sodium (Porcine) (Heparin) 5,000 unit SQ Q12 [facility] Last Admin: 06/26/17 21:23 Dose: 5,000 unit Fluconazole (Diflucan) 200 mg in 100 mls @ 100 mls/hr IV Q24H [facility] Last Infusion: 06/26/17 10:00 Dose: Infused Piperacillin Sod/Tazobactam (Sod 2.25 gm/ Dextrose) 50 mls @ 100 mls/hr IV Q8H [facility] Last Admin: 06/26/17 21:24 Dose: 100 mls/hr Insulin Human Lispro (Humalog) 0 unit SQ ACHS [facility] PRN Reason: Protocol Last Admin: 06/26/17 21:18 Dose: Not Given Levothyroxine Sodium (Synthroid) 100 mcg PO ACB [facility] Last Admin: 06/26/17 07:15 Dose: Not Given Lisinopril (Zestril) 5 mg PO DAILY [facility] Last Admin: 06/26/17 09:22 Dose: Not Given Memantine (Namenda) 5 mg PO DAILY [facility] Last Admin: 06/26/17 09:20 Dose: Not Given Morphine Sulfate (Morphine) 1 mg IV Q4HP PRN PRN Reason: Dyspnea Naloxone HCl (Narcan) 0.1 mg IV Q2MIN PRN PRN Reason: Opiate Reversal Ondansetron HCl (Zofran) 4 mg IV Q4HP PRN PRN Reason: Nausea And Vomiting Oxybutynin Chloride (Ditropan Xl) 10 mg PO DAILY [facility] Last Admin: 06/26/17 09:19 Dose: Not Given Polyethylene Glycol (Miralax) 17 gm PO DAILYP PRN PRN Reason: CONSTIPATION Sodium Chloride (Saline Flush) 10 ml IV Q8 [facility] Last Admin: 06/26/17 21:23 Dose: 10 ml Medical - PN: A/P - Time Spent With Patient Total time spent is greater than 50% in coordination of care (as documented) at patient's floor/unit and/or counseling patient: 15 - 24 minutes - Narrative A/P Narrative: A/P Sepsis with multi organ dysfunction: [employer] 2 score of 15, mortality rate of 22 percent, bp low this AM, but improved later, monitor for now. Pt still high risk for mortality. Pneumonia: likely aspiration pneumonia, will treat with hcap coverage given 2 rounds of abx given recently IV vanco, zosyn. MRSA screen neg. Will discontinue Vancomycin 06/25 Urinary tract infection: Ecoli as per culture in [facility], UA still suggestive of UTI, iv zosyn should cover. Bhargavi positive, diflucan added. await sensitivities Altered mental status/ Septic Encephalopathy: mental status changes were before the patient's acute infection in the lung, she may have had Bhargavi UTI which may experimental status, presently on Diflucan. MRI shows a very small stroke, we will get echo and a carotid DOPPLER Abnormal liver function test: Etiology, CT abdomen is neg, USG is reported neg by ER provider, pt has cholestatic picture, likely related to sepsis. Could also be related to antibiotic use recently. LFT trending down Acute Kidney Injury: likely due to poor oral intake, creatinine is 1.0 today. There also may be a component of sepsis related renal failure and contrast nephropathy related. Dementia: Able to carry out ADL, bad with recent memory but lives independently with . home med resumed. Diastolic heart failure grade 2: clinically dry, recent echo reviewed, has elevated bnp. monitor now. Hypothyroidism: resume synthroid, TSH mildly elevated, possibly due to inability to take oral medications over the last 1 month. Hyperkalemia: resolved Diabetes: hold metformin, sliding scale insulin for now. HTN: r/o diuretics, RYAN Pulmonary edema 06/25: lasix, BiPAP, discontinue IVF, RYAN inh. Transfer to telemetry. DVT hep sc Full code for now, pt ok intubation but no cpr . Medical - PN: Qual - VTE Deep Vein Thrombosis/Pulmonary Embolism Present on Admission: No
[2017-06-27 05:20] LABS: Albumin 2.7 gm/dL (3.2-5.2); Blood Urea Nitrogen 20 mg/dl (8-23)
[2017-06-27] MEDS: 0.9 % SODIUM CHLORIDE 10 ML SYRINGE IV SCH ×3 (05:50→21:29)
[2017-06-27] MEDS: PIPERACILLIN SODIUM/TAZOBACTAM 2.25 GM in DEXTROSE 5% IN WATER 50 ML IV SCH ×3 (05:50→21:29)
[2017-06-27] MEDS: INSULIN LISPRO 1 UNIT/0.01 ML UNIT SQ SCH ×4 (08:27→20:41)
--- NOTE | 2017-06-27 08:48 | XRay Report ---
CLINICAL INFORMATION: Follow up CHF and pneumonia COMPARISON: 06/25/2017 FINDINGS: Moderate cardiomegaly has decreased slightly. Mediastinum is unremarkable. Peripheral pulmonary vessels returned to normal caliber.. There is mild enlargement of the central pulmonary arteries suggesting underlying pulmonary hypertension. Edema is improved markedly with minimal peribronchial vascular residual. Small region of airspace disease left base likely represents atelectasis. Pleural effusions have resolved IMPRESSION: Marked improvement in CHF with only minimal residual edema Small region of consolidated atelectasis or, less likely, infiltrate in the left medial base progressing Interpreted and Authenticated by: Linwood Lutz 06/27/17
[2017-06-27] MEDS ORDERED: LISINOPRIL 10 MG TABLET PO SCH (09:00)
[2017-06-27] MEDS: FLUCONAZOLE 200 MG/100 ML BAG IV SCH (09:00)
[2017-06-27] MEDS: OXYBUTYNIN CHLORIDE 5 MG TAB.XL.24H PO SCH (09:42)
[2017-06-27] MEDS: ASPIRIN 81 MG TAB.CHEW CHEWED SCH (09:42)
[2017-06-27] MEDS: LEVOTHYROXINE 100 MCG TABLET PO SCH (09:42)
[2017-06-27] MEDS: MEMANTINE 10 MG TABLET PO SCH (09:43)
[2017-06-27] MEDS: LISINOPRIL 20 MG TABLET PO SCH (09:43)
[2017-06-27] MEDS: HEPARIN 5,000 UNIT/ML VIAL SQ SCH ×2 (09:47→20:41)
--- NOTE | 2017-06-27 10:41 | Internal Med Progress Note ---
Medical - PN: Subj Patient information: Note initiated : 06/27/17 at 10:39 am Service Date, if different from initiated Date: [] Patient: Lois Guy 81 y/o F admitted on 06/21/17 for Weakness/Pneumonia, Sepsis, UTI. Interval history: Ms. 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 Presently has no neurological deficit. The patient is brought to the emergency room today because of confusion that has been going on for the last 1 month. History was provided by the patient's daughter patient was unable to provide any meaningful history. She was very confused. According to the daughter, the patient at baseline is quite independent, has memory issues but is able to carry out her activities of daily living. She lives with her . Since the early this month the patient has been not doing so well, she has been confused, she's been having some cough with some expectoration. The patient has been very weak, and has not been eating drinking very well. She has been bedbound. She has had 3 episodes of urinary incontinence. The patient was taken to emergency room at [facility], I believe at 3 separate occasions during this time. She was diagnosed with UTI for the first 2 times, and then they could not find anything abnormal on the which was her last ER visit. They had sent her back home. The patient was therefore brought to the emergency room at [facility] for further evaluation. In the emergency room the patient had a low-grade fever, she was confused and unable to provide any history. She had elevated white blood cell count at 18,900, neutrophils of 79%, hemoglobin of 11.9, platelets 279. He has mild hyperkalemia with potassium of 5.4, acute renal failure with creatinine of 2.2 the urine of 54. Lactic acid is 0.9, bicarbonate is 19. Her liver function tests are normal, total bilirubin is 1.8, AST 68, ALP 119, alkaline phosphatase is 246. Her UA is abnormal positive leukoesterase negative nitrites and few PVCs Patient's had a chest x-ray done which shows right interstitial infiltrate. I reviewed the workup done at [facility], she's had a negative CT abdomen and pelvis done on the . This study was done with contrast. She's had a head CT stand on 06/03/17 and 06/17/17 both of which revealed no acute pathology. She's had 2 x-rays done both of which were negative last x-ray was The patient is being admitted to the hospital for management of sepsis, pneumonia, UTI and multiorgan dysfunction jun 22 patient seen and examined today, no acute overnight events, patient clinically somewhat better labs are improving. The patient was able to provide some answers to direct questioning. Daughter was at bedside. Urine culture positive for Bhargavi IV Diflucan started June 23 Patient seen and examined, no acute overnight events, white blood cell count still elevated slightly wan yesterday. Patient's urine culture is still growing Candidaresults pending. Plan to get a barium swallow done to evaluate for proper consistency of diet and aspiration. Plan to get MRI of the head today given that the patient's symptoms were present even before the pneumonia was diagnosed. It is likely that the patient had Bhargavi UTI which was not picked up on previous urine studies and was untreated so far. She is on IV Diflucan at this point. I believe that the aspiration pneumonitis is likely a complication of her altered mental status rather than the primary pathology June 24 Patient seen and examined, no acute overnight events, she was on oxygen, drowsy , did not answer any of my questions. According to the staff the patient was given Ativan yesterday and according to the patient's home members patient takes a long time to recover from Ativan. MRI of the head showed a very small stroke. The patient remains confused, lap show signs of improvement, remains on IV antibiotics for aspiration pneumonia vancomycin and Zosyn. IV Diflucan for Bhargavi and the UTI. Sensitivities for the candidiasis to pending plan of care reviewed with the patient's and the son-in-law who are at the bedside today patient has been monitored on telemetry for 3 days. Can be transferred to [facility] status Jun 25 Overnight developed acute SOB a/w hypoxia and hypercapnia. 97.7 127/98 101 I/O: ? due to urinary incontinence No CP. No new or worsening cough Mild resp distress Lungs with few rales CXR worsening infiltrates, diffuse c/w CHF June 26: Good diuresis with Lasix. Less supplemental O2 requirement. June 27: Doing well. Up in chair. Clearing MS. Has not been requiring BiPAP > 24 hours. - Constitutional Vitals: Vital Signs Temp Pulse Resp BP Pulse Ox 97.9 F 72 20 139/75 94 06/27/17 06:49 06/27/17 04:01 06/27/17 06:49 06/27/17 06:49 06/27/17 06:49 Period Temp Pulse Resp BP Sys/Bañuelos Pulse Ox Last 24 Hr 97.6 F-98.6 F 50-91 11-26 99-139/63-75 92-97 Intake and Output 06/26/17 06/27/17 06/27/17 21:59 05:59 13:59 Intake Total 50 / 50 50 / 50 Output Total 825 / 825 600 / 600 Balance -775 / -775 -550 / -550 Weight 141 lb 12.8 oz Intake & Output: Intake & Output 06/26/17 06/27/17 06/27/17 21:59 05:59 13:59 Intake Total 50 / 50 50 / 50 Output Total 825 / 825 600 / 600 Balance -775 / -775 -550 / -550 Weight 141 lb 12.8 oz Intake: IV 50 / 50 50 / 50 Zosyn 2.25 gm In Dextrose 5% in 50 / 50 50 / 50 Water 50 ml @ 100 mls/hr IV Q8H [facility] Rx#:[id number] Output: Urine Catheter Amount 825 / 825 600 / 600 General appearance: no acute distress - Respiratory Respiratory exam: Present: normal respiratory exam - Cardiovascular Cardiovascular exam: Present: normal rate and rhythm - GI/Abdominal GI/Abdominal exam: Present: normal bowel sounds, soft - Extremities Exam Extremities exam: Present: normal inspection. Absent: pedal edema Medical - PN: Obj Da - Labs CBC & Chem 7: 06/26/17 03:30 06/27/17 03:30 Labs: Abnormal Lab Results 06/27/17 06/26/17 06/26/17 03:30 03:30 03:30 WBC 11.7 H Hgb 11.9 L RDW 16.4 H Lymph % (Auto) Gran # 8.8 H Carbon Dioxide Creatinine 1.2 H 1.3 H Glucose Phosphorus 4.8 H Magnesium Troponin T NT-Pro-B Natriuret Pep 57905.0 H Albumin 2.7 L 2.6 L 06/25/17 06/25/17 06/25/17 18:11 12:02 03:45 WBC Hgb RDW Lymph % (Auto) Gran # Carbon Dioxide Creatinine Glucose Phosphorus Magnesium Troponin T 0.07 H* 0.06 H* 0.06 H* NT-Pro-B Natriuret Pep Albumin 06/25/17 06/25/17 03:40 03:35 WBC 13.3 H Hgb RDW 16.2 H Lymph % (Auto) 15.0 L Gran # 10.0 H Carbon Dioxide 15 L Creatinine Glucose 248 H Phosphorus Magnesium 1.5 L Troponin T NT-Pro-B Natriuret Pep Albumin Meds: Medications Acetaminophen (Tylenol) 650 mg PO Q6HP PRN PRN Reason: PAIN/FEVER > 101 Aspirin (Aspirin) 324 mg CHEWED DAILY [facility] Last Admin: 06/27/17 09:42 Dose: Not Given Atorvastatin Calcium (Lipitor) 40 mg PO HS [facility] Last Admin: 06/26/17 21:19 Dose: Not Given Cyclobenzaprine HCl (Flexeril) 10 mg PO DAILYP PRN PRN Reason: Muscle Spasm Dextrose (Dextrose 50%) 0 ml IV UD PRN PRN Reason: Hypoglycemia Diagnostic Test (Pha) (Accu-Chek) 1 each FS ACHS [facility] Last Admin: 06/27/17 08:27 Dose: 1 each Donepezil HCl (Aricept) 10 mg PO HS [facility] Last Admin: 06/26/17 21:19 Dose: Not Given Famotidine (Pepcid) 20 mg IV HS [facility] Last Admin: 06/26/17 21:23 Dose: 20 mg Glucose (Insta-Glucose) 15 gm PO PRN PRN PRN Reason: Hypoglycemia Heparin Sodium (Porcine) (Heparin) 5,000 unit SQ Q12 [facility] Last Admin: 06/27/17 09:47 Dose: 5,000 unit Fluconazole (Diflucan) 200 mg in 100 mls @ 100 mls/hr IV Q24H [facility] Last Admin: 06/27/17 09:00 Dose: 100 mls/hr Piperacillin Sod/Tazobactam (Sod 2.25 gm/ Dextrose) 50 mls @ 100 mls/hr IV Q8H [facility] Last Admin: 06/27/17 05:50 Dose: 100 mls/hr Insulin Human Lispro (Humalog) 0 unit SQ [facility] PRN Reason: Protocol Last Admin: 06/27/17 08:27 Dose: Not Given Levothyroxine Sodium (Synthroid) 100 mcg PO ACB [facility] Last Admin: 06/27/17 09:42 Dose: Not Given Lisinopril (Zestril) 20 mg PO DAILY [facility] Last Admin: 06/27/17 09:43 Dose: Not Given Memantine (Namenda) 5 mg PO DAILY [facility] Last Admin: 06/27/17 09:43 Dose: Not Given Morphine Sulfate (Morphine) 1 mg IV Q4HP PRN PRN Reason: Dyspnea Naloxone HCl (Narcan) 0.1 mg IV Q2MIN PRN PRN Reason: Opiate Reversal Ondansetron HCl (Zofran) 4 mg IV Q4HP PRN PRN Reason: Nausea And Vomiting Oxybutynin Chloride (Ditropan Xl) 10 mg PO DAILY [facility] Last Admin: 06/27/17 09:42 Dose: Not Given Polyethylene Glycol (Miralax) 17 gm PO DAILYP PRN PRN Reason: CONSTIPATION Sodium Chloride (Saline Flush) 10 ml IV Q8 [facility] Last Admin: 06/27/17 05:50 Dose: 10 ml Medical - PN: A/P - Time Spent With Patient Total time spent is greater than 50% in coordination of care (as documented) at patient's floor/unit and/or counseling patient: 15 - 24 minutes - Narrative A/P Narrative: A/P Sepsis with multi organ dysfunction 06/21: [place] 2 score of 15. Resolved. Pneumonia: likely aspiration pneumonia, will treat with hcap coverage given 2 rounds of abx given recently IV vanco, zosyn. MRSA screen neg. Will discontinue Vancomycin 06/25. Continue Zosyn for 7-10 days. Started 06/21 Urinary tract infection: Ecoli as per culture in [facility], UA still suggestive of UTI, iv zosyn should cover. Bhargavi positive, diflucan added. await sensitivities Altered mental status/ Septic Encephalopathy: Improving. MRI shows a very small stroke. Abnormal liver function test: Etiology, CT abdomen is neg, USG is reported neg by ER provider, pt has cholestatic picture, likely related to sepsis. Could also be related to antibiotic use recently. LFT trending down Acute Kidney Injury: multi-factorial cause. Dementia: Able to carry out ADL, bad with recent memory but lives independently with . home med resumed. Diastolic heart failure grade 2: developed pulmonary edema 06/25. Hypothyroidism: resume synthroid, TSH mildly elevated, possibly due to inability to take oral medications over the last 1 month. Hyperkalemia: resolved Diabetes: hold metformin, sliding scale insulin for now. HTN: r/o diuretics, RYAN Pulmonary edema 06/25: lasix, BiPAP, discontinue IVF, RYAN inh. Transfer to telemetry. Resolved 06/26: will d/c BiPAP. Switch to po Lasix. DVT hep sc Full code for now, pt ok intubation but no cpr . Medical - PN: Qual - VTE Deep Vein Thrombosis/Pulmonary Embolism Present on Admission: No
[2017-06-27] MEDS ORDERED: FUROSEMIDE 20 MG TABLET PO SCH (10:57)
[2017-06-27] MEDS ORDERED: FUROSEMIDE 20 MG/2 ML VIAL IV ONE (17:17)
--- NOTE | 2017-06-27 17:24 | XRay Report ---
CLINICAL INFORMATION: Reason for Exam:dysphagia COMPARISON: None. FINDINGS: Please see attached sheet IMPRESSION: Small amounts of barium spilled prematurely into the vallecula from the tongue base. Vallecular pooling is noted. Epiglottis closed incompletely allowing amounts of descending aspiration which penetrated the vestibule. Please see speech pathology report Interpreted and Authenticated by: Linwood Lutz 06/27/17
[2017-06-27] MEDS: DONEPEZIL 10 MG TABLET PO SCH (20:40)
[2017-06-27] MEDS: ATORVASTATIN 20 MG TABLET PO SCH (20:41)
[2017-06-27] MEDS: FAMOTIDINE/PF 20 MG/2 ML VIAL IV SCH (20:42)
[2017-06-28 05:30] LABS: Albumin 2.8 gm/dL (3.2-5.2); Blood Urea Nitrogen 23 mg/dl (8-23)
[2017-06-28] MEDS: PIPERACILLIN SODIUM/TAZOBACTAM 2.25 GM in DEXTROSE 5% IN WATER 50 ML IV SCH ×3 (05:33→21:20)
[2017-06-28] MEDS: 0.9 % SODIUM CHLORIDE 10 ML SYRINGE IV SCH ×3 (05:33→21:20)
[2017-06-28] MEDS: LEVOTHYROXINE 100 MCG TABLET PO SCH (08:13)
[2017-06-28] MEDS: OXYBUTYNIN CHLORIDE 5 MG TAB.XL.24H PO SCH (08:13)
[2017-06-28] MEDS: LISINOPRIL 20 MG TABLET PO SCH (08:13)
[2017-06-28] MEDS: MEMANTINE 10 MG TABLET PO SCH (08:13)
[2017-06-28] MEDS: ASPIRIN 81 MG TAB.CHEW CHEWED SCH (08:13)
[2017-06-28] MEDS: FLUCONAZOLE 200 MG/100 ML BAG IV SCH (08:26)
[2017-06-28] MEDS: HEPARIN 5,000 UNIT/ML VIAL SQ SCH ×2 (08:26→21:20)
[2017-06-28] MEDS: INSULIN LISPRO 1 UNIT/0.01 ML UNIT SQ SCH ×4 (08:29→21:21)
[2017-06-28] MEDS ORDERED: FUROSEMIDE 20 MG/2 ML VIAL IV SCH (09:00)
--- NOTE | 2017-06-28 11:27 | Internal Med Progress Note ---
Medical - PN: Subj Patient information: Note initiated : 06/28/17 at 11:20 am Service Date, if different from initiated Date: [] Patient: Lois Guy 81 y/o F admitted on 06/21/17 for Weakness/Pneumonia, Sepsis, UTI. Interval history: Ms. 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 Presently has no neurological deficit. The patient is brought to the emergency room today because of confusion that has been going on for the last 1 month. History was provided by the patient's daughter patient was unable to provide any meaningful history. She was very confused. According to the daughter, the patient at baseline is quite independent, has memory issues but is able to carry out her activities of daily living. She lives with her . Since the early this month the patient has been not doing so well, she has been confused, she's been having some cough with some expectoration. The patient has been very weak, and has not been eating drinking very well. She has been bedbound. She has had 3 episodes of urinary incontinence. The patient was taken to emergency room at [facility], I believe at 3 separate occasions during this time. She was diagnosed with UTI for the first 2 times, and then they could not find anything abnormal on the which was her last ER visit. They had sent her back home. The patient was therefore brought to the emergency room at [facility] for further evaluation. In the emergency room the patient had a low-grade fever, she was confused and unable to provide any history. She had elevated white blood cell count at 18,900, neutrophils of 79%, hemoglobin of 11.9, platelets 279. He has mild hyperkalemia with potassium of 5.4, acute renal failure with creatinine of 2.2 the urine of 54. Lactic acid is 0.9, bicarbonate is 19. Her liver function tests are normal, total bilirubin is 1.8, AST 68, ALP 119, alkaline phosphatase is 246. Her UA is abnormal positive leukoesterase negative nitrites and few PVCs Patient's had a chest x-ray done which shows right interstitial infiltrate. I reviewed the workup done at [facility], she's had a negative CT abdomen and pelvis done on the . This study was done with contrast. She's had a head CT stand on 06/03/17 and 06/17/17 both of which revealed no acute pathology. She's had 2 x-rays done both of which were negative last x-ray was The patient is being admitted to the hospital for management of sepsis, pneumonia, UTI and multiorgan dysfunction jun 22 patient seen and examined today, no acute overnight events, patient clinically somewhat better labs are improving. The patient was able to provide some answers to direct questioning. Daughter was at bedside. Urine culture positive for Bhargavi IV Diflucan started June 23 Patient seen and examined, no acute overnight events, white blood cell count still elevated slightly wan yesterday. Patient's urine culture is still growing Candidaresults pending. Plan to get a barium swallow done to evaluate for proper consistency of diet and aspiration. Plan to get MRI of the head today given that the patient's symptoms were present even before the pneumonia was diagnosed. It is likely that the patient had Bhargavi UTI which was not picked up on previous urine studies and was untreated so far. She is on IV Diflucan at this point. I believe that the aspiration pneumonitis is likely a complication of her altered mental status rather than the primary pathology June 24 Patient seen and examined, no acute overnight events, she was on oxygen, drowsy , did not answer any of my questions. According to the staff the patient was given Ativan yesterday and according to the patient's home members patient takes a long time to recover from Ativan. MRI of the head showed a very small stroke. The patient remains confused, lap show signs of improvement, remains on IV antibiotics for aspiration pneumonia vancomycin and Zosyn. IV Diflucan for Bhargavi and the UTI. Sensitivities for the candidiasis to pending plan of care reviewed with the patient's and the son-in-law who are at the bedside today patient has been monitored on telemetry for 3 days. Can be transferred to [facility] status Jun 25 Overnight developed acute SOB a/w hypoxia and hypercapnia. 97.7 127/98 101 I/O: ? due to urinary incontinence No CP. No new or worsening cough Mild resp distress Lungs with few rales CXR worsening infiltrates, diffuse c/w CHF June 26: Good diuresis with Lasix. Less supplemental O2 requirement. June 27: Doing well. Up in chair. Clearing MS. Has not been requiring BiPAP > 24 hours. Will d/c BiPAP 'failed' barium swallow', partly due to fatigue June 3: Up in chair and breathing comfortably. However, still confused. Has been stable, will transfer to medical floor. Will limit po meds, and hold some of meds on transfer. Continue Zosyn and Diflucan to finish 10 day course. [place]aton cath still in as patient is on Lasix IV and still very confused. Can probably remove tomorrow. - Constitutional Vitals: Vital Signs Temp Pulse Resp BP Pulse Ox 98.0 F 75 16 135/66 97 06/28/17 07:15 06/28/17 04:00 06/28/17 07:15 06/28/17 07:15 06/28/17 07:15 Period Temp Pulse Resp BP Sys/Bañuelos Pulse Ox Last 24 Hr 96.6 F-98.0 F 53-76 16-20 79-149/38-70 85-98 Intake and Output 06/27/17 06/28/17 06/28/17 21:59 05:59 13:59 Intake Total 50 / 50 50 / 50 50 / 50 Output Total 175 / 175 1000 / 1000 Balance -125 / -125 -950 / -950 50 / 50 Weight 143 lb Intake & Output: Intake & Output 06/27/17 06/28/17 06/28/17 21:59 05:59 13:59 Intake Total 50 / 50 50 / 50 50 / 50 Output Total 175 / 175 1000 / 1000 Balance -125 / -125 -950 / -950 50 / 50 Weight 143 lb Intake: IV 50 / 50 50 / 50 50 / 50 Zosyn 2.25 gm In Dextrose 5% in 50 / 50 50 / 50 50 / 50 Water 50 ml @ 100 mls/hr IV Q8H [facility] Rx#:[id number] Output: Urine Catheter Amount 175 / 175 1000 / 1000 Other: Percent of Meal Consumed npo General appearance: no acute distress - Respiratory Respiratory exam: Present: decreased breath sounds. Absent: prolonged expiratory phase, wheezes - Cardiovascular Cardiovascular exam: Present: normal rate and rhythm - GI/Abdominal GI/Abdominal exam: Present: normal bowel sounds, soft - Extremities Exam Extremities exam: Absent: pedal edema Medical - PN: Obj Da - Labs CBC & Chem 7: 06/26/17 03:30 06/28/17 04:02 Labs: Abnormal Lab Results [id number]/[id number] 06/26/17 04:02 03:30 03:30 WBC Hgb RDW Gran # Creatinine 1.3 H 1.2 H 1.3 H Phosphorus 4.8 H Troponin T NT-Pro-B Natriuret Pep 99262.0 H Albumin 2.8 L 2.7 L 2.6 L 06/26/17 06/25/17 06/25/17 03:30 18:11 12:02 WBC 11.7 H Hgb 11.9 L RDW 16.4 H Gran # 8.8 H Creatinine Phosphorus Troponin T 0.07 H* 0.06 H* NT-Pro-B Natriuret Pep Albumin Meds: Medications Acetaminophen (Tylenol) 650 mg PO Q6HP PRN PRN Reason: PAIN/FEVER > 101 Aspirin (Aspirin) 324 mg CHEWED DAILY [facility] Last Admin: 06/28/17 08:13 Dose: Not Given Atorvastatin Calcium (Lipitor) 40 mg PO HS [facility] Last Admin: 06/27/17 20:41 Dose: Not Given Dextrose (Dextrose 50%) 0 ml IV UD PRN PRN Reason: Hypoglycemia Diagnostic Test (Pha) (Accu-Chek) 1 each FS ACHS [facility] Last Admin: 06/28/17 08:27 Dose: 1 each Donepezil HCl (Aricept) 10 mg PO HS [facility] Last Admin: 06/27/17 20:40 Dose: Not Given Famotidine (Pepcid) 20 mg IV HS [facility] Last Admin: 06/27/17 20:42 Dose: 20 mg Furosemide (Lasix) 20 mg IV DAILY [facility] Last Admin: 06/28/17 08:25 Dose: 20 mg Glucose (Insta-Glucose) 15 gm PO PRN PRN PRN Reason: Hypoglycemia Heparin Sodium (Porcine) (Heparin) 5,000 unit SQ Q12 [facility] Last Admin: 06/28/17 08:26 Dose: 5,000 unit Fluconazole (Diflucan) 200 mg in 100 mls @ 100 mls/hr IV Q24H [facility] Last Admin: 06/28/17 08:26 Dose: 100 mls/hr Piperacillin Sod/Tazobactam (Sod 2.25 gm/ Dextrose) 50 mls @ 100 mls/hr IV Q8H [facility] Last Infusion: 06/28/17 06:30 Dose: Infused Insulin Human Lispro (Humalog) 0 unit SQ ACHS [facility] PRN Reason: Protocol Last Admin: 06/28/17 08:29 Dose: Not Given Levothyroxine Sodium (Synthroid) 100 mcg PO ACB [facility] Last Admin: 06/28/17 08:13 Dose: Not Given Lisinopril (Zestril) 20 mg PO DAILY [facility] Last Admin: 06/28/17 08:13 Dose: Not Given Memantine (Namenda) 5 mg PO DAILY [facility] Last Admin: 06/28/17 08:13 Dose: Not Given Morphine Sulfate (Morphine) 1 mg IV Q4HP PRN PRN Reason: Dyspnea Last Admin: 06/27/17 22:35 Dose: 1 mg Naloxone HCl (Narcan) 0.1 mg IV Q2MIN PRN PRN Reason: Opiate Reversal Ondansetron HCl (Zofran) 4 mg IV Q4HP PRN PRN Reason: Nausea And Vomiting Oxybutynin Chloride (Ditropan Xl) 10 mg PO DAILY [facility] Last Admin: 06/28/17 08:13 Dose: Not Given Polyethylene Glycol (Miralax) 17 gm PO DAILYP PRN PRN Reason: CONSTIPATION Sodium Chloride (Saline Flush) 10 ml IV Q8 [facility] Last Admin: 06/28/17 05:33 Dose: 10 ml Medical - PN: A/P - Time Spent With Patient Total time spent is greater than 50% in coordination of care (as documented) at patient's floor/unit and/or counseling patient: 15 - 24 minutes - Narrative A/P Narrative: A/P Sepsis with multi organ dysfunction 06/21: [place] 2 score of 15. Resolved. Pneumonia: likely aspiration pneumonia, will treat with hcap coverage given 2 rounds of abx given recently IV vanco, zosyn. MRSA screen neg. Will discontinue Vancomycin 06/25. Continue Zosyn for 10 days thru 06/29. Urinary tract infection: Ecoli as per culture in [facility], UA still suggestive of UTI, iv zosyn should cover. Bhargavi positive, diflucan added. Eaton cath in place. Last day 06/29. Will repeat Urine c/s after completion. Altered mental status/ Septic Encephalopathy: Improving. MRI shows a very small stroke. Abnormal liver function test: Etiology, CT abdomen is neg, USG is reported neg by ER provider, pt has cholestatic picture, likely related to sepsis. Could also be related to antibiotic use recently. LFT trending down Acute Kidney Injury: multi-factorial cause. Dementia: Able to carry out ADL, bad with recent memory but lives independently with . home med resumed. Diastolic heart failure grade 2: developed pulmonary edema 06/25. Hypothyroidism: resume synthroid, TSH mildly elevated, possibly due to inability to take oral medications over the last 1 month. Hyperkalemia: resolved Diabetes: hold metformin, sliding scale insulin for now. HTN: r/o diuretics, RYAN Pulmonary edema 06/25: lasix, BiPAP, discontinue IVF, RYAN inh. Transfer to telemetry. Resolved 06/26: will d/c BiPAP. Switch to po once swallowing safe. 06/29: transfer to [facility] DVT hep sc Code status: No CPR, intubation: yes Medical - PN: Qual - VTE Deep Vein Thrombosis/Pulmonary Embolism Present on Admission: No
[2017-06-28] MEDS ORDERED: POLYETHYLENE GLYCOL 3350 17 GM PACKET PO PRN (11:40)
[2017-06-28] MEDS ORDERED: DEXTROSE 31 GM ORAL.SUSP PO PRN (11:40)
[2017-06-28] MEDS ORDERED: DEXTROSE 50% 50 ML VIAL IV PRN (11:40)
[2017-06-28] MEDS ORDERED: ONDANSETRON 4 MG/2 ML VIAL IV PRN (11:40)
[2017-06-28] MEDS ORDERED: FAMOTIDINE/PF 20 MG/2 ML VIAL IV SCH (21:00)
[2017-06-29] MEDS: 0.9 % SODIUM CHLORIDE 10 ML SYRINGE IV SCH ×3 (05:45→20:43)
[2017-06-29] MEDS: PIPERACILLIN SODIUM/TAZOBACTAM 2.25 GM in DEXTROSE 5% IN WATER 50 ML IV SCH ×3 (05:45→21:47)
[2017-06-29] MEDS: INSULIN LISPRO 1 UNIT/0.01 ML UNIT SQ SCH ×4 (08:10→20:43)
[2017-06-29] MEDS: OXYBUTYNIN CHLORIDE 5 MG TAB.XL.24H PO SCH (08:37)
[2017-06-29] MEDS: ASPIRIN 81 MG TAB.CHEW CHEWED SCH (08:37)
[2017-06-29] MEDS: HEPARIN 5,000 UNIT/ML VIAL SQ SCH ×2 (08:37→20:43)
[2017-06-29] MEDS: LEVOTHYROXINE 100 MCG TABLET PO SCH (08:40)
[2017-06-29] MEDS ORDERED: LISINOPRIL 20 MG TABLET PO SCH (09:00)
[2017-06-29] MEDS ORDERED: FLUCONAZOLE 200 MG/100 ML BAG IV SCH (09:00)
[2017-06-29] MEDS ORDERED: FUROSEMIDE 20 MG/2 ML VIAL IV SCH (09:00)
--- NOTE | 2017-06-29 11:14 | Internal Med Progress Note ---
Medical - PN: Subj Patient information: Note initiated : 06/29/17 at 11:12 am Service Date, if different from initiated Date: [] Patient: Lois Guy 81 y/o F admitted on 06/21/17 for Weakness/Pneumonia, Sepsis, UTI. Chief Complaint: [] Interval history: Ms. 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 Presently has no neurological deficit. The patient is brought to the emergency room today because of confusion that has been going on for the last 1 month. History was provided by the patient's daughter patient was unable to provide any meaningful history. She was very confused. According to the daughter, the patient at baseline is quite independent, has memory issues but is able to carry out her activities of daily living. She lives with her . Since the early this month the patient has been not doing so well, she has been confused, she's been having some cough with some expectoration. The patient has been very weak, and has not been eating drinking very well. She has been bedbound. She has had 3 episodes of urinary incontinence. The patient was taken to emergency room at [facility], I believe at 3 separate occasions during this time. She was diagnosed with UTI for the first 2 times, and then they could not find anything abnormal on the which was her last ER visit. They had sent her back home. The patient was therefore brought to the emergency room at [facility] for further evaluation. In the emergency room the patient had a low-grade fever, she was confused and unable to provide any history. She had elevated white blood cell count at 18,900, neutrophils of 79%, hemoglobin of 11.9, platelets 279. He has mild hyperkalemia with potassium of 5.4, acute renal failure with creatinine of 2.2 the urine of 54. Lactic acid is 0.9, bicarbonate is 19. Her liver function tests are normal, total bilirubin is 1.8, AST 68, ALP 119, alkaline phosphatase is 246. Her UA is abnormal positive leukoesterase negative nitrites and few PVCs Patient's had a chest x-ray done which shows right interstitial infiltrate. I reviewed the workup done at [facility], she's had a negative CT abdomen and pelvis done on the . This study was done with contrast. She's had a head CT stand on 06/03/17 and 06/17/17 both of which revealed no acute pathology. She's had 2 x-rays done both of which were negative last x-ray was The patient is being admitted to the hospital for management of sepsis, pneumonia, UTI and multiorgan dysfunction June 22 patient seen and examined today, no acute overnight events, patient clinically somewhat better labs are improving. The patient was able to provide some answers to direct questioning. Daughter was at bedside. Urine culture positive for Bhargavi IV Diflucan started June 23 Patient seen and examined, no acute overnight events, white blood cell count still elevated slightly wan yesterday. Patient's urine culture is still growing Candidaresults pending. Plan to get a barium swallow done to evaluate for proper consistency of diet and aspiration. Plan to get MRI of the head today given that the patient's symptoms were present even before the pneumonia was diagnosed. It is likely that the patient had Bhargavi UTI which was not picked up on previous urine studies and was untreated so far. She is on IV Diflucan at this point. I believe that the aspiration pneumonitis is likely a complication of her altered mental status rather than the primary pathology June 24 Patient seen and examined, no acute overnight events, she was on oxygen, drowsy , did not answer any of my questions. According to the staff the patient was given Ativan yesterday and according to the patient's home members patient takes a long time to recover from Ativan. MRI of the head showed a very small stroke. The patient remains confused, lap show signs of improvement, remains on IV antibiotics for aspiration pneumonia vancomycin and Zosyn. IV Diflucan for Bhargavi and the UTI. Sensitivities for the candidiasis to pending plan of care reviewed with the patient's and the son-in-law who are at the bedside today patient has been monitored on telemetry for 3 days. Can be transferred to [facility] status June 25 Overnight developed acute SOB a/w hypoxia and hypercapnia. 97.7 127/98 101 I/O: ? due to urinary incontinence No CP. No new or worsening cough Mild resp distress Lungs with few rales CXR worsening infiltrates, diffuse c/w CHF June 26: Good diuresis with Lasix. Less supplemental O2 requirement. June 27: Doing well. Up in chair. Clearing MS. Has not been requiring BiPAP > 24 hours. Will d/c BiPAP 'failed' barium swallow', partly due to fatigue June 28: Up in chair and breathing comfortably. However, still confused. Has been stable, will transfer to medical floor. Will limit po meds, and hold some of meds on transfer. Continue Zosyn and Diflucan to finish 10 day course. Goldsmith cath still in as patient is on Lasix IV and still very confused. Can probably remove tomorrow. June 29: Up in chair. Still somewhat confused, but awake and has been eating self. Will discontinue goldsmith cath, diflucan, and switch to po lasix. Zosyn thru today then d/c. - Constitutional Vitals: Vital Signs Temp Pulse Resp BP Pulse Ox 97.6 F 53 L 16 118/72 96 06/29/17 07:51 06/29/17 07:51 06/29/17 07:51 06/29/17 07:51 06/29/17 07:51 Period Temp Pulse Resp BP Sys/Bañuelos Pulse Ox Last 24 Hr 96.2 F-97.7 F 53-74 16-16 100-125/50-79 92-96 Intake and Output 06/28/17 06/29/17 06/29/17 21:59 05:59 13:59 Intake Total 350 / 350 60 / 60 50 / 50 Output Total 650 / 650 325 / 325 Balance -300 / -300 -265 / -265 50 / 50 Weight 143 lb Intake & Output: Intake & Output 06/28/17 06/29/17 06/29/17 21:59 05:59 13:59 Intake Total 350 / 350 60 / 60 50 / 50 Output Total 650 / 650 325 / 325 Balance -300 / -300 -265 / -265 50 / 50 Weight 143 lb Intake: IV 50 / 50 50 / 50 50 / 50 Zosyn 2.25 gm In Dextrose 5% in 50 / 50 50 / 50 50 / 50 Water 50 ml @ 100 mls/hr IV Q8H [facility] Rx#:[id number] Oral 300 / 300 10 / 10 Output: Urine Catheter Amount 650 / 650 325 / 325 Other: Meal Dinner Percent of Meal Consumed 75% Stool Size Moderate Stool Color Brown Stool Consistency Loose # of times incontinent of 1 Bowels General appearance: no acute distress - Respiratory Respiratory exam: Present: normal respiratory exam. Absent: rales - Cardiovascular Cardiovascular exam: Present: normal rate and rhythm - GI/Abdominal GI/Abdominal exam: Present: normal bowel sounds, soft - Extremities Exam Extremities exam: Present: normal inspection. Absent: pedal edema Medical - PN: Obj Da - Labs CBC & Chem 7: 06/26/17 03:30 06/28/17 04:02 Labs: Abnormal Lab Results 06/28/17 06/27/17 04:02 03:30 Creatinine 1.3 H 1.2 H Albumin 2.8 L 2.7 L Meds: Medications Acetaminophen (Tylenol) 650 mg PO Q6HP PRN PRN Reason: PAIN/FEVER > 101 Aspirin (Aspirin) 324 mg CHEWED DAILY [facility] Last Admin: 06/29/17 08:37 Dose: 324 mg Dextrose (Dextrose 50%) 0 ml IV UD PRN PRN Reason: Hypoglycemia Diagnostic Test (Pha) (Accu-Chek) 1 each FS ACHS [facility] Last Admin: 06/29/17 08:10 Dose: 1 each Famotidine (Pepcid) 20 mg IV HS [facility] Last Admin: 06/28/17 21:20 Dose: 20 mg Furosemide (Lasix) 20 mg IV DAILY [facility] Last Admin: 06/29/17 08:36 Dose: 20 mg Glucose (Insta-Glucose) 15 gm PO PRN PRN PRN Reason: Hypoglycemia Heparin Sodium (Porcine) (Heparin) 5,000 unit SQ Q12 [facility] Last Admin: 06/29/17 08:37 Dose: 5,000 unit Fluconazole (Diflucan) 200 mg in 100 mls @ 100 mls/hr IV Q24H [facility] Last Admin: 06/29/17 08:36 Dose: 100 mls/hr Piperacillin Sod/Tazobactam (Sod 2.25 gm/ Dextrose) 50 mls @ 100 mls/hr IV Q8H [facility] Last Infusion: 06/29/17 06:18 Dose: Infused Insulin Human Lispro (Humalog) 0 unit SQ ACHS [facility] PRN Reason: Protocol Last Admin: 06/29/17 08:10 Dose: Not Given Levothyroxine Sodium (Synthroid) 100 mcg PO ACB [facility] Last Admin: 06/29/17 08:40 Dose: 100 mcg Lisinopril (Zestril) 20 mg PO DAILY [facility] Last Admin: 06/29/17 08:37 Dose: 20 mg Ondansetron HCl (Zofran) 4 mg IV Q4HP PRN PRN Reason: Nausea And Vomiting Oxybutynin Chloride (Ditropan Xl) 10 mg PO DAILY [facility] Last Admin: 06/29/17 08:37 Dose: 10 mg Polyethylene Glycol (Miralax) 17 gm PO DAILYP PRN PRN Reason: CONSTIPATION Sodium Chloride (Saline Flush) 10 ml IV Q8 [facility] Last Admin: 06/29/17 05:45 Dose: 10 ml Medical - PN: A/P - Time Spent With Patient Total time spent is greater than 50% in coordination of care (as documented) at patient's floor/unit and/or counseling patient: 15 - 24 minutes - Narrative A/P Narrative: A/P Sepsis with multi organ dysfunction 06/21: [place] 2 score of 15. Resolved. Pneumonia: likely aspiration pneumonia, initially treated with hcap coverage IV vanco, zosyn. MRSA screen neg. Discontinued Vancomycin 06/25. Continue Zosyn for 10 days thru 06/29. Urinary tract infection: Ecoli as per culture in [facility], UA still suggestive of UTI, iv zosyn should cover. Bhargavi positive, diflucan added. Goldsmith cath in place. Last day 06/29. Will repeat Urine c/s after completion. Altered mental status/ Septic Encephalopathy: Improving. MRI shows a very small stroke. Abnormal liver function test: CT abdomen is neg, USG is reported neg by ER provider, pt has cholestatic picture, likely related to sepsis. Could also be related to antibiotic use recently. LFT trending down Acute Kidney Injury: multi-factorial cause. Improving Dementia: Able to carry out ADL, bad with recent memory but lives independently with . home med resumed. Diastolic heart failure grade 2: developed pulmonary edema 06/25. Hypothyroidism: resume synthroid, TSH mildly elevated, possibly due to inability to take oral medications over the last 1 month. Hyperkalemia: resolved Diabetes: hold metformin, sliding scale insulin for now. HTN: r/o diuretics, RYAN Pulmonary edema 06/25: lasix, BiPAP, discontinue IVF, RYAN inh. Transfer to telemetry. Resolved 06/26: will d/c BiPAP. Switch to po once swallowing safe. 06/28: transfer to [facility] troponin positive. consider cardiology fu as outpt DVT: heparin sc Code status: No CPR, intubation: yes Medical - PN: Qual - VTE Deep Vein Thrombosis/Pulmonary Embolism Present on Admission: No
[2017-06-29] MEDS: ACETAMINOPHEN 325 MG TABLET PO PRN (18:25)
[2017-06-29] MEDS: FAMOTIDINE 20 MG TABLET PO SCH (20:43)
[2017-06-30 05:33] LABS: Basophils # (Auto) 0.1 K/mcL (0.0-0.3); Basophils % (Auto) 0.8 % (0.0-2.0); Eosinophils # (Auto) 0.4 K/mcL (0.0-0.7); Eosinophils % (Auto) 4.6 % (0.0-7.0); Granulocytes % (Auto) 68.7 % (38.0-78.0); Lymphocytes # (Auto) 1.5 K/mcL (1.5-4.8); Lymphocytes % (Auto) 18.5 % (15.5-49.0); Mean Cell Volume 90.3 fL (80.0-100.0); Mean Corpuscular HGB Conc 32.8 g/dL (31.0-36.0); Mean Corpuscular Hemoglobin 29.7 pg (26.0-34.0); Monocytes # (Auto) 0.6 K/mcL (0.1-0.9); Monocytes % (Auto) 7.4 % (1.0-12.0); Platelet Count 421 K/mcL (140-440); RBC 3.83 M/mcL (4.00-5.20); Red Cell Distribution Width 16.3 % (11.5-14.5)
[2017-06-30] MEDS: PIPERACILLIN SODIUM/TAZOBACTAM 2.25 GM in DEXTROSE 5% IN WATER 50 ML IV SCH (05:44)
[2017-06-30] MEDS: 0.9 % SODIUM CHLORIDE 10 ML SYRINGE IV SCH ×3 (05:45→21:44)
[2017-06-30 06:42] LABS: ALT/SGPT 35 U/l (0-40); Albumin 2.9 gm/dL (3.2-5.2); Albumin/Globulin Ratio 0.9 (1.0-2.3); Alkaline Phosphatase 69 U/L (39-117); Bilirubin,Direct 0.3 mg/dL (0.0-0.3); Blood Urea Nitrogen 31 mg/dl (8-23); Gamma Glutamyl Transpeptidase 169 U/L (5-36); Uric Acid 7.1 mg/dL (2.5-8.0)
[2017-06-30] MEDS ORDERED: 0.9 % SODIUM CHLORIDE 500 ML IV ONE (07:23)
[2017-06-30] MEDS ORDERED: 0.9 % SODIUM CHLORIDE 250 ML IV ONE (07:24)
[2017-06-30] MEDS ORDERED: POTASSIUM CHLORIDE 20 MEQ PACKET PO ONE (07:25)
[2017-06-30] MEDS ORDERED: MAGNESIUM SULFATE 2 GM/50 ML BAG IV ONE (07:25)
[2017-06-30] MEDS: INSULIN LISPRO 1 UNIT/0.01 ML UNIT SQ SCH ×4 (07:52→21:45)
[2017-06-30] MEDS: LEVOTHYROXINE 100 MCG TABLET PO SCH (08:16)
[2017-06-30] MEDS ORDERED: FUROSEMIDE 20 MG TABLET PO SCH (09:00)
[2017-06-30] MEDS: HEPARIN 5,000 UNIT/ML VIAL SQ SCH ×2 (09:34→21:50)
[2017-06-30] MEDS: OXYBUTYNIN CHLORIDE 5 MG TAB.XL.24H PO SCH (09:36)
[2017-06-30] MEDS: ASPIRIN 81 MG TAB.CHEW CHEWED SCH (09:37)
--- NOTE | 2017-06-30 11:04 | Internal Med Progress Note ---
Medical - PN: Subj Patient information: Note initiated : 06/30/17 at 11:01 am Service Date, if different from initiated Date: [] Patient: Lois Guy 81 y/o F admitted on 06/21/17 for Weakness/Pneumonia, Sepsis, UTI. Chief Complaint: [] Interval history: Ms. 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 Presently has no neurological deficit. The patient is brought to the emergency room today because of confusion that has been going on for the last 1 month. History was provided by the patient's daughter patient was unable to provide any meaningful history. She was very confused. According to the daughter, the patient at baseline is quite independent, has memory issues but is able to carry out her activities of daily living. She lives with her . Since the early this month the patient has been not doing so well, she has been confused, she's been having some cough with some expectoration. The patient has been very weak, and has not been eating drinking very well. She has been bedbound. She has had 3 episodes of urinary incontinence. The patient was taken to emergency room at [facility], I believe at 3 separate occasions during this time. She was diagnosed with UTI for the first 2 times, and then they could not find anything abnormal on the which was her last ER visit. They had sent her back home. The patient was therefore brought to the emergency room at [facility] for further evaluation. In the emergency room the patient had a low-grade fever, she was confused and unable to provide any history. She had elevated white blood cell count at 18,900, neutrophils of 79%, hemoglobin of 11.9, platelets 279. He has mild hyperkalemia with potassium of 5.4, acute renal failure with creatinine of 2.2 the urine of 54. Lactic acid is 0.9, bicarbonate is 19. Her liver function tests are normal, total bilirubin is 1.8, AST 68, ALP 119, alkaline phosphatase is 246. Her UA is abnormal positive leukoesterase negative nitrites and few PVCs Patient's had a chest x-ray done which shows right interstitial infiltrate. I reviewed the workup done at [facility], she's had a negative CT abdomen and pelvis done on the . This study was done with contrast. She's had a head CT stand on 06/03/17 and 06/17/17 both of which revealed no acute pathology. She's had 2 x-rays done both of which were negative last x-ray was The patient is being admitted to the hospital for management of sepsis, pneumonia, UTI and multiorgan dysfunction June 22 patient seen and examined today, no acute overnight events, patient clinically somewhat better labs are improving. The patient was able to provide some answers to direct questioning. Daughter was at bedside. Urine culture positive for Bhargavi IV Diflucan started June 23 Patient seen and examined, no acute overnight events, white blood cell count still elevated slightly wan yesterday. Patient's urine culture is still growing Candidaresults pending. Plan to get a barium swallow done to evaluate for proper consistency of diet and aspiration. Plan to get MRI of the head today given that the patient's symptoms were present even before the pneumonia was diagnosed. It is likely that the patient had Bhargavi UTI which was not picked up on previous urine studies and was untreated so far. She is on IV Diflucan at this point. I believe that the aspiration pneumonitis is likely a complication of her altered mental status rather than the primary pathology June 24 Patient seen and examined, no acute overnight events, she was on oxygen, drowsy , did not answer any of my questions. According to the staff the patient was given Ativan yesterday and according to the patient's home members patient takes a long time to recover from Ativan. MRI of the head showed a very small stroke. The patient remains confused, lap show signs of improvement, remains on IV antibiotics for aspiration pneumonia vancomycin and Zosyn. IV Diflucan for Bhargavi and the UTI. Sensitivities for the candidiasis to pending plan of care reviewed with the patient's and the son-in-law who are at the bedside today patient has been monitored on telemetry for 3 days. Can be transferred to [facility] status June 25 Overnight developed acute SOB a/w hypoxia and hypercapnia. 97.7 127/98 101 I/O: ? due to urinary incontinence No CP. No new or worsening cough Mild resp distress Lungs with few rales CXR worsening infiltrates, diffuse c/w CHF June 26: Good diuresis with Lasix. Less supplemental O2 requirement. June 27: Doing well. Up in chair. Clearing MS. Has not been requiring BiPAP > 24 hours. Will d/c BiPAP 'failed' barium swallow', partly due to fatigue June 28: Up in chair and breathing comfortably. However, still confused. Has been stable, will transfer to medical floor. Will limit po meds, and hold some of meds on transfer. Continue Zosyn and Diflucan to finish 10 day course. Goldsmith cath still in as patient is on Lasix IV and still very confused. Can probably remove tomorrow. June 29: Up in chair. Still somewhat confused, but awake and has been eating self. Will discontinue goldsmith cath, diflucan, and switch to po lasix. Zosyn thru today then d/c. june 30 patient seen and examined, was sitting in a chair, still confused but much better than before. Wanting to go home. Her kidney function worsened blood urea nitrogen and went up. give 250 cc of saline today. Hold the losartan as well as Lasix today, reassess her kidney function tomorrow if stable can consider for discharge last dose of antibiotics was today Pertinent ROS: Denies headache, dizziness Denies chest pain, palpitations Denies cough or shortness of breath Denies abdominal pain, nausea or vomiting. - Constitutional Vitals: Vital Signs Temp Pulse Resp BP Pulse Ox 97.9 F 62 20 120/74 95 06/30/17 07:45 06/30/17 07:45 06/30/17 07:45 06/30/17 07:45 06/30/17 07:45 Period Temp Pulse Resp BP Sys/Bañuelos Pulse Ox Last 24 Hr 97.1 F-98.5 F 52-66 16-20 95-137/60-81 94-99 Intake and Output 06/29/17 06/30/17 06/30/17 21:59 05:59 13:59 Intake Total 470 / 470 290 / 290 50 / 50 Output Total 496 / 496 175 / 175 Balance -26 / -26 289 / 289 -125 / -125 Weight 140 lb Intake & Output: Intake & Output 06/29/17 06/30/17 06/30/17 21:59 05:59 13:59 Intake Total 470 / 470 290 / 290 50 / 50 Output Total 496 / 496 175 / 175 Balance -26 / -26 289 / 289 -125 / -125 Weight 140 lb Intake: IV 50 / 50 50 / 50 50 / 50 Zosyn 2.25 gm In Dextrose 5% in 50 / 50 50 / 50 50 / 50 Water 50 ml @ 100 mls/hr IV Q8H [facility] Rx#:[id number] Oral 420 / 420 240 / 240 Output: Urine Catheter Amount 445 / 445 Void Amount 175 / 175 # of times incontinent of urine / Urine/Stool Mix 50 / 50 Other: Meal Dinner Breakfast Percent of Meal Consumed 25% 10% Feeding Ability Total Assistance Assist with Tray Set Up Stool Size Small Smear Stool Color Brown Brown Stool Consistency Liquid # Bowel Movements 1 # of times incontinent of 2 1 Bowels Exam: Constitutional; Afebrile, cooperative, alert, not in distress. Eyes- No icterus, , No periorbital swelling Ears- Ext ear normal, hearing her to conversation Neck- Midline trachea, supple Respiratory system: Air Entry equal on both sides, No crackles or wheezing, no rhonchi. CVS- Rate rhythm regular, S1,S2 heard, no gallop, no rub. Abdomen- Soft nontender abdomen, no organomegaly, no tenderness, no guarding or rigidity, FISHER EEL- AOOx2, moving all extremities, no gross focal deficit noted. Medical - PN: Obj Da - Labs CBC & Chem 7: 06/30/17 04:06 06/30/17 04:06 Labs: Abnormal Lab Results 06/30/17 06/30/17 06/28/17 04:06 04:06 04:02 RBC 3.83 L Hgb 11.4 L Hct 34.6 L RDW 16.3 H Anion Gap 17.0 H BUN 31 H Creatinine 1.9 H 1.3 H Magnesium 1.5 L GGT 169 H Albumin 2.9 L 2.8 L Albumin/Globulin Ratio 0.9 L Meds: Medications Acetaminophen (Tylenol) 650 mg PO Q6HP PRN PRN Reason: PAIN/FEVER > 101 Last Admin: 06/29/17 18:25 Dose: 650 mg Aspirin (Aspirin) 324 mg CHEWED DAILY [facility] Last Admin: 06/30/17 09:37 Dose: 324 mg Dextrose (Dextrose 50%) 0 ml IV UD PRN PRN Reason: Hypoglycemia Diagnostic Test (Pha) (Accu-Chek) 1 each FS ACHS [facility] Last Admin: 06/30/17 07:53 Dose: 1 each Famotidine (Pepcid) 20 mg PO HS [facility] Last Admin: 06/29/17 20:43 Dose: 20 mg Glucose (Insta-Glucose) 15 gm PO PRN PRN PRN Reason: Hypoglycemia Heparin Sodium (Porcine) (Heparin) 5,000 unit SQ Q12 [facility] Last Admin: 06/30/17 09:34 Dose: 5,000 unit Insulin Human Lispro (Humalog) 0 unit SQ ACHS [facility] PRN Reason: Protocol Last Admin: 06/30/17 07:52 Dose: Not Given Levothyroxine Sodium (Synthroid) 100 mcg PO ACB [facility] Last Admin: 06/30/17 08:16 Dose: 100 mcg Ondansetron HCl (Zofran) 4 mg IV Q4HP PRN PRN Reason: Nausea And Vomiting Oxybutynin Chloride (Ditropan Xl) 10 mg PO DAILY [facility] Last Admin: 06/30/17 09:36 Dose: 10 mg Polyethylene Glycol (Miralax) 17 gm PO DAILYP PRN PRN Reason: CONSTIPATION Sodium Chloride (Saline Flush) 10 ml IV Q8 [facility] Last Admin: 06/30/17 05:45 Dose: 10 ml Medical - PN: A/P - Time Spent With Patient Total time spent is greater than 50% in coordination of care (as documented) at patient's floor/unit and/or counseling patient: - Narrative A/P Narrative: A/P Sepsis with multi organ dysfunction 06/21: [place] 2 score of 15. Resolved. Pneumonia: likely aspiration pneumonia, initially treated with hcap coverage IV vanco, zosyn. MRSA screen neg. Discontinued Vancomycin 06/25. Continue Zosyn for 10 days thru 06/29. Urinary tract infection: Ecoli as per culture in [facility], UA still suggestive of UTI, iv zosyn should cover. Bhargavi positive, diflucan added. Goldsmith cath in place. Last day 06/29. Will repeat Urine c/s after completion.end UA again today Altered mental status/ Septic Encephalopathy: Improving. MRI shows a very small stroke. Abnormal liver function test: CT abdomen is neg, USG is reported neg by ER provider, pt has cholestatic picture, likely related to sepsis. Could also be related to antibiotic use recently. LFT trending down Acute Kidney Injury: multi-factorial cause. due to overdiuresis, give 2 50 cc of saline today hold Lasix as well as RYAN inhibitor. Recheck tomorrow morning Dementia: Able to carry out ADL, bad with recent memory but lives independently with . home med resumed. patient may need to go to a rehabilitation center Diastolic heart failure grade 2: developed pulmonary edema 06/25. Hypothyroidism: resume synthroid, TSH mildly elevated, possibly due to inability to take oral medications over the last 1 month. Hyperkalemia: resolved Diabetes: hold metformin, sliding scale insulin for now. HTN: r/o diuretics, RYAN 9hold now for today) Pulmonary edema 06/25: lasix, BiPAP, discontinue IVF, RYAN inh. Transfer to telemetry. Resolved 06/26: will d/c BiPAP. Switch to po once swallowing safe. 06/28: transfer to [facility] troponin positive. consider cardiology fu as outpt DVT: heparin sc Code status: No CPR, intubation: yes Medical - PN: Qual - VTE Deep Vein Thrombosis/Pulmonary Embolism Present on Admission: No
[2017-06-30 15:34] LABS: Appearance,Urine CLOUDY; Bacteria,Urine 0 /hpf (0); Bilirubin,Urine NEG (NEG); Color,Urine YELLOW; Glucose,Urine (UA) NEGATIVE (NEG); Leukocyte Esterase,Urine 75 /uL (NEG); Mucus,Urine FEW /hpf (0); Protein,Urine NEG (NEG); Specific Gravity,Urine 1.024 (1.000-1.035); Urine Blood NEG mg/dL (<0.03); Urine RBC 8 /hpf (0-1); Urine Squamous Epithelial Cell 63 /hpf (0-4); Urine WBC 12 /hpf (0-4); Urobilinogen,Urine NEG (NEG)
[2017-06-30] MEDS: FAMOTIDINE 20 MG TABLET PO SCH (21:50)
[2017-07-01 06:25] LABS: Basophils # (Auto) 0.1 K/mcL (0.0-0.3); Basophils % (Auto) 0.7 % (0.0-2.0); Eosinophils # (Auto) 0.4 K/mcL (0.0-0.7); Eosinophils % (Auto) 4.8 % (0.0-7.0); Granulocytes % (Auto) 69.4 % (38.0-78.0); Lymphocytes # (Auto) 1.5 K/mcL (1.5-4.8); Lymphocytes % (Auto) 18.9 % (15.5-49.0); Mean Cell Volume 90.4 fL (80.0-100.0); Mean Corpuscular Hemoglobin 29.8 pg (26.0-34.0); Monocytes # (Auto) 0.5 K/mcL (0.1-0.9); Monocytes % (Auto) 6.2 % (1.0-12.0); Platelet Count 406 K/mcL (140-440); RBC 3.71 M/mcL (4.00-5.20); Red Cell Distribution Width 17.1 % (11.5-14.5)
[2017-07-01 06:50] LABS: ALT/SGPT 29 U/l (0-40); Albumin 2.7 gm/dL (3.2-5.2); Albumin/Globulin Ratio 0.8 (1.0-2.3); Alkaline Phosphatase 63 U/L (39-117); Bilirubin,Direct < 0.2 mg/dL (0.0-0.3); Blood Urea Nitrogen 31 mg/dl (8-23); Gamma Glutamyl Transpeptidase 158 U/L (5-36); Uric Acid 7.8 mg/dL (2.5-8.0)
[2017-07-01] MEDS: LEVOTHYROXINE 100 MCG TABLET PO SCH (08:41)
[2017-07-01] MEDS: 0.9 % SODIUM CHLORIDE 10 ML SYRINGE IV SCH ×4 (10:14→22:25)
[2017-07-01] MEDS: INSULIN LISPRO 1 UNIT/0.01 ML UNIT SQ SCH ×4 (10:15→19:57)
[2017-07-01] MEDS: ASPIRIN 81 MG TAB.CHEW CHEWED SCH (10:15)
[2017-07-01] MEDS: OXYBUTYNIN CHLORIDE 5 MG TAB.XL.24H PO SCH (10:17)
[2017-07-01] MEDS: HEPARIN 5,000 UNIT/ML VIAL SQ SCH ×2 (10:17→19:46)
[2017-07-01] MEDS: ACETAMINOPHEN 325 MG TABLET PO PRN ×2 (13:25→19:45)
--- NOTE | 2017-07-01 13:31 | Internal Med Progress Note ---
Medical - PN: Subj Patient information: Note initiated : 07/01/17 at 1:22 pm Service Date, if different from initiated Date: [] Patient: Lois Guy 81 y/o F admitted on 06/21/17 for Weakness/Pneumonia, Sepsis, UTI. Chief Complaint: [] Interval history: Ms. 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 Presently has no neurological deficit. The patient is brought to the emergency room today because of confusion that has been going on for the last 1 month. History was provided by the patient's daughter patient was unable to provide any meaningful history. She was very confused. According to the daughter, the patient at baseline is quite independent, has memory issues but is able to carry out her activities of daily living. She lives with her . Since the early this month the patient has been not doing so well, she has been confused, she's been having some cough with some expectoration. The patient has been very weak, and has not been eating drinking very well. She has been bedbound. She has had 3 episodes of urinary incontinence. The patient was taken to emergency room at [facility], I believe at 3 separate occasions during this time. She was diagnosed with UTI for the first 2 times, and then they could not find anything abnormal on the which was her last ER visit. They had sent her back home. The patient was therefore brought to the emergency room at [facility] for further evaluation. In the emergency room the patient had a low-grade fever, she was confused and unable to provide any history. She had elevated white blood cell count at 18,900, neutrophils of 79%, hemoglobin of 11.9, platelets 279. He has mild hyperkalemia with potassium of 5.4, acute renal failure with creatinine of 2.2 the urine of 54. Lactic acid is 0.9, bicarbonate is 19. Her liver function tests are normal, total bilirubin is 1.8, AST 68, ALP 119, alkaline phosphatase is 246. Her UA is abnormal positive leukoesterase negative nitrites and few PVCs Patient's had a chest x-ray done which shows right interstitial infiltrate. I reviewed the workup done at [facility], she's had a negative CT abdomen and pelvis done on the . This study was done with contrast. She's had a head CT stand on 06/03/17 and 06/17/17 both of which revealed no acute pathology. She's had 2 x-rays done both of which were negative last x-ray was The patient is being admitted to the hospital for management of sepsis, pneumonia, UTI and multiorgan dysfunction June 22 patient seen and examined today, no acute overnight events, patient clinically somewhat better labs are improving. The patient was able to provide some answers to direct questioning. Daughter was at bedside. Urine culture positive for Bhargavi IV Diflucan started June 23 Patient seen and examined, no acute overnight events, white blood cell count still elevated slightly wan yesterday. Patient's urine culture is still growing Candidaresults pending. Plan to get a barium swallow done to evaluate for proper consistency of diet and aspiration. Plan to get MRI of the head today given that the patient's symptoms were present even before the pneumonia was diagnosed. It is likely that the patient had Bhargavi UTI which was not picked up on previous urine studies and was untreated so far. She is on IV Diflucan at this point. I believe that the aspiration pneumonitis is likely a complication of her altered mental status rather than the primary pathology June 24 Patient seen and examined, no acute overnight events, she was on oxygen, drowsy , did not answer any of my questions. According to the staff the patient was given Ativan yesterday and according to the patient's home members patient takes a long time to recover from Ativan. MRI of the head showed a very small stroke. The patient remains confused, lap show signs of improvement, remains on IV antibiotics for aspiration pneumonia vancomycin and Zosyn. IV Diflucan for Bhargavi and the UTI. Sensitivities for the candidiasis to pending plan of care reviewed with the patient's and the son-in-law who are at the bedside today patient has been monitored on telemetry for 3 days. Can be transferred to [facility] status June 25 Overnight developed acute SOB a/w hypoxia and hypercapnia. 97.7 127/98 101 I/O: ? due to urinary incontinence No CP. No new or worsening cough Mild resp distress Lungs with few rales CXR worsening infiltrates, diffuse c/w CHF June 26: Good diuresis with Lasix. Less supplemental O2 requirement. June 27: Doing well. Up in chair. Clearing MS. Has not been requiring BiPAP > 24 hours. Will d/c BiPAP 'failed' barium swallow', partly due to fatigue June 28: Up in chair and breathing comfortably. However, still confused. Has been stable, will transfer to medical floor. Will limit po meds, and hold some of meds on transfer. Continue Zosyn and Diflucan to finish 10 day course. Goldsmith cath still in as patient is on Lasix IV and still very confused. Can probably remove tomorrow. June 29: Up in chair. Still somewhat confused, but awake and has been eating self. Will discontinue goldsmith cath, diflucan, and switch to po lasix. Zosyn thru today then d/c. june 30 patient seen and examined, was sitting in a chair, still confused but much better than before. Wanting to go home. Her kidney function worsened blood urea nitrogen and went up. give 250 cc of saline today. Hold the losartan as well as Lasix today, reassess her kidney function tomorrow if stable can consider for discharge last dose of antibiotics was today july 01 patient seen and examined, no acute overnight events, patient's confusion is much better, she remembers seeing me yesterday. Denies any complaints. Her creatinine is improved from 1.9-1.7 today. Continue to hold losartan and Lasix. We are awaiting placement to [facility] facility Pertinent ROS: Denies headache, dizziness Denies chest pain, palpitations Denies cough or shortness of breath Denies abdominal pain, nausea or vomiting. - Constitutional Vitals: Vital Signs Temp Pulse Resp BP Pulse Ox 97.3 F 49 L 16 104/70 92 07/01/17 12:00 07/01/17 08:00 07/01/17 12:00 07/01/17 12:00 07/01/17 12:00 Period Temp Pulse Resp BP Sys/Bañuelos Pulse Ox Last 24 Hr 97.2 F-98.6 F 49-62 16-18 104-143/69-84 92-96 Intake and Output 06/30/17 07/01/17 07/01/17 21:59 05:59 13:59 Intake Total 200 / 200 0 / 0 Output Total 200 / 200 Balance 200 / 200 -200 / -200 Weight 141 lb 8 oz Intake & Output: Intake & Output 06/30/17 07/01/17 07/01/17 21:59 05:59 13:59 Intake Total 200 / 200 0 / 0 Output Total 200 / 200 Balance 200 / 200 -200 / -200 Weight 141 lb 8 oz Intake: Oral 200 / 200 0 / 0 Output: Void Amount 200 / 200 Other: Meal applesauce Percent of Meal Consumed 100% Feeding Ability Total Assistance # Voids 1 Exam: Constitutional; Afebrile, cooperative, alert, not in distress. Eyes- No icterus, , No periorbital swelling Ears- Ext ear normal, hearing normal to conversation. Neck- Midline trachea, supple Respiratory system: Air Entry equal on both sides, No crackles or wheezing, no rhonchi. CVS- Rate rhythm regular, S1,S2 heard, no gallop, no rub. Abdomen- Soft nontender abdomen, no organomegaly, no tenderness, no guarding or rigidity, [place] [employer]- AOOx2, moving all extremities, no gross focal deficit noted. Medical - PN: Obj Da - Labs CBC & Chem 7: 07/01/17 04:05 07/01/17 04:05 Labs: Abnormal Lab Results 07/01/17 07/01/17 06/30/17 04:05 04:05 14:31 RBC 3.71 L Hgb 11.1 L Hct 33.6 L RDW 17.1 H Anion Gap BUN 31 H Creatinine 1.7 H Magnesium GGT 158 H Albumin 2.7 L Albumin/Globulin Ratio 0.8 L Ur Leukocyte Esterase 75 A Urine RBC 8 H Urine WBC 12 H Ur Squamous Epith Cells 63 H 06/30/17 06/30/17 04:06 04:06 RBC 3.83 L Hgb 11.4 L Hct 34.6 L RDW 16.3 H Anion Gap 17.0 H BUN 31 H Creatinine 1.9 H Magnesium 1.5 L GGT 169 H Albumin 2.9 L Albumin/Globulin Ratio 0.9 L Ur Leukocyte Esterase Urine RBC Urine WBC Ur Squamous Epith Cells Meds: Medications Acetaminophen (Tylenol) 650 mg PO Q6HP PRN PRN Reason: PAIN/FEVER > 101 Last Admin: 06/29/17 18:25 Dose: 650 mg Aspirin (Aspirin) 324 mg CHEWED DAILY [facility] Last Admin: 07/01/17 10:15 Dose: 324 mg Dextrose (Dextrose 50%) 0 ml IV UD PRN PRN Reason: Hypoglycemia Diagnostic Test (Pha) (Accu-Chek) 1 each FS ACHS [facility] Last Admin: 07/01/17 10:14 Dose: 1 each Famotidine (Pepcid) 20 mg PO HS [facility] Last Admin: 06/30/17 21:50 Dose: 20 mg Glucose (Insta-Glucose) 15 gm PO PRN PRN PRN Reason: Hypoglycemia Heparin Sodium (Porcine) (Heparin) 5,000 unit SQ Q12 [facility] Last Admin: 07/01/17 10:17 Dose: 5,000 unit Insulin Human Lispro (Humalog) 0 unit SQ ACHS [facility] PRN Reason: Protocol Last Admin: 07/01/17 12:07 Dose: Not Given Levothyroxine Sodium (Synthroid) 100 mcg PO ACB [facility] Last Admin: 07/01/17 08:41 Dose: 100 mcg Ondansetron HCl (Zofran) 4 mg IV Q4HP PRN PRN Reason: Nausea And Vomiting Oxybutynin Chloride (Ditropan Xl) 10 mg PO DAILY [facility] Last Admin: 07/01/17 10:17 Dose: 10 mg Polyethylene Glycol (Miralax) 17 gm PO DAILYP PRN PRN Reason: CONSTIPATION Sodium Chloride (Saline Flush) 10 ml IV Q8 [facility] Last Admin: 07/01/17 10:14 Dose: 10 ml Medical - PN: A/P - Time Spent With Patient Total time spent is greater than 50% in coordination of care (as documented) at patient's floor/unit and/or counseling patient: - Narrative A/P Narrative: A/P Sepsis with multi organ dysfunction 06/21: [place] 2 score of 15. Resolved. Pneumonia: likely aspiration pneumonia, initially treated with hcap coverage IV vanco, zosyn. MRSA screen neg. Discontinued Vancomycin 06/25. Continue Zosyn for 10 days thru 06/29-resolved Urinary tract infection: Ecoli as per culture in [facility], UA still suggestive of UTI, iv zosyn should cover. Bhargavi positive, diflucan added. Goldsmith cath in place. Last day 06/29. Will repeat Urine c/s after completion.end UA again today- ua abnl, but pt asymptomatic, cultures neg so far. Altered mental status/ Septic Encephalopathy: Improving. MRI shows a very small stroke. Abnormal liver function test: CT abdomen is neg, USG is reported neg by ER provider, pt has cholestatic picture, likely related to sepsis. Could also be related to antibiotic use recently. LFT trending down Acute Kidney Injury: multi-factorial cause. due to overdiuresis, give 2 50 cc of saline today hold Lasix as well as RYAN inhibitor. creat 1.7, conintue to hold ryan and lasix. Dementia: Able to carry out ADL, bad with recent memory but lives independently with . home med resumed. awaiting SNF placement Diastolic heart failure grade 2: developed pulmonary edema 06/25. resolved. Hypothyroidism: resume synthroid, TSH mildly elevated, possibly due to inability to take oral medications over the last 1 month. Hyperkalemia: resolved Diabetes: hold metformin, sliding scale insulin for now. HTN: r/o diuretics, RYAN 9hold now for today) DVT: heparin sc Code status: No CPR, intubation: yes Medical - PN: Qual - VTE Deep Vein Thrombosis/Pulmonary Embolism Present on Admission: No
[2017-07-01] MEDS: FAMOTIDINE 20 MG TABLET PO SCH (19:46)
[2017-07-02 05:38] LABS: Basophils # (Auto) 0 K/mcL (0.0-0.3); Basophils % (Auto) 0.2 % (0.0-2.0); Eosinophils # (Auto) 0.4 K/mcL (0.0-0.7); Granulocytes % (Auto) 59.2 % (38.0-78.0); Lymphocytes # (Auto) 1.8 K/mcL (1.5-4.8); Lymphocytes % (Auto) 27.3 % (15.5-49.0); Mean Corpuscular HGB Conc 32.9 g/dL (31.0-36.0); Mean Corpuscular Hemoglobin 29.6 pg (26.0-34.0); Monocytes # (Auto) 0.5 K/mcL (0.1-0.9); Monocytes % (Auto) 7.3 % (1.0-12.0); Platelet Count 384 K/mcL (140-440); RBC 3.66 M/mcL (4.00-5.20); Red Cell Distribution Width 16.8 % (11.5-14.5)
[2017-07-02 06:20] LABS: ALT/SGPT 28 U/l (0-40); Albumin 2.8 gm/dL (3.2-5.2); Albumin/Globulin Ratio 0.9 (1.0-2.3); Alkaline Phosphatase 61 U/L (39-117); Bilirubin,Direct 0.2 mg/dL (0.0-0.3); Blood Urea Nitrogen 33 mg/dl (8-23); Gamma Glutamyl Transpeptidase 148 U/L (5-36); Uric Acid 8.1 mg/dL (2.5-8.0)
[2017-07-02] MEDS: 0.9 % SODIUM CHLORIDE 10 ML SYRINGE IV SCH (06:50)
--- NOTE | 2017-07-02 10:15 | Discharge Summary ---
Medical - DS: Prov Patient information: Note initiated : 07/02/17 at 10:07 am Service Date, if different from initiated Date: [] Patient: Lois Guy 81 y/o F admitted on 06/21/17 for Weakness/Pneumonia, Sepsis, UTI. Chief Complaint: [] Date of admission: 06/21/17 16:20 Discharge date: 07/02/17 Primary care physician: Denisha Garcia Admitting clinician: Frandy Zamudio Consults: 06/21/17 15:02 Consult to Physician [CONS] Stat Comment: Consulting Provider: Frandy Zamudio Reason For Exam: Physician to Consult 07/01/17 09:17 Consult to Physician [CONS] Routine Comment: Consulting Provider: [facility] Reason For Exam: Physician to Consult Discharging clinician: Frandy Zamudio Medical - DS: Meds - Discharge Medications Prescriptions: Aspirin 81 mg PO DAILY 60 Days #30 Famotidine [Pepcid] 20 mg PO HS #30 tab Furosemide [Lasix] 10 mg PO DAILY #30 tab Potassium Chloride [Kdur] 10 meq PO QAMCC #30 tab Quinapril HCl 20 mg PO DAILY #30 tab Active and Home Medications: Home Medications amLODIPine [Norvasc] 10 mg PO DAILY 12/29/14 [History Confirmed 06/21/17 Last Taken Unknown] metFORMIN [Glucophage] 500 mg PO BID 12/29/14 [History Confirmed 06/21/17 Last Taken Unknown] Cyclobenzaprine HCl 10 mg PO DAILYP PRN 04/10/16 [History Confirmed 06/21/17 Last Taken Unknown] Donepezil HCl [Aricept] 10 mg PO HS 04/10/16 [History Confirmed 06/21/17 Last Taken Unknown] Furosemide [Lasix] 20 mg PO DAILY PRN 04/10/16 [History Confirmed 06/21/17 Last Taken Unknown] Levothyroxine [Synthroid] 100 mcg PO DAILY 04/10/16 [History Confirmed 06/21/17 Last Taken Unknown] Memantine HCl 5 mg PO DAILY 04/10/16 [History Confirmed 06/22/17 Last Taken Unknown] Polyethylene Glycol 3350 [Smoothlax] 17 gm PO DAILYP PRN 04/10/16 [History Confirmed 06/22/17 Last Taken Unknown] Quinapril HCl [Accupril] 40 mg PO BID 04/10/16 [History Confirmed 06/21/17 Last Taken Unknown] Aspirin 324 mg CHEWED DAILY 60 Days tab.chew 04/15/16 [Rx Confirmed 06/21/17 Last Taken Unknown] Atorvastatin [Lipitor] 40 mg PO HS 06/21/17 [History Confirmed 06/21/17 Last Taken Unknown] Oxybutynin Chloride [Oxybutynin Chloride ER] 10 mg PO DAILY 06/21/17 [History Confirmed 06/21/17 Last Taken Unknown] Potassium Chloride [Klor-Con M20] 40 meq PO DAILY 06/21/17 [History Confirmed Last Taken Unknown] Medical - DS: Hosp Hospital course: Ms. 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 Presently has no neurological deficit. The patient is brought to the emergency room today because of confusion that has been going on for the last 1 month.According to the daughter, the patient at baseline is quite independent, has memory issues but is able to carry out her activities of daily living. She lives with her . Since the early this month the patient has been not doing so well, she has been confused, she's been having some cough with some expectoration. The patient has been very weak, and has not been eating drinking very well. She has been bedbound. She has had 3 episodes of urinary incontinence. The patient was taken to emergency room at [facility], I believe at 3 separate occasions during this time. She was diagnosed with UTI for the first 2 times, and then they could not find anything abnormal on the which was her last ER visit. They had sent her back home. The patient was therefore brought to the emergency room at [facility] for further evaluation. In the emergency room the patient had a low-grade fever, she was confused and unable to provide any history. She had elevated white blood cell count at 18,900, neutrophils of 79%, hemoglobin of 11.9, platelets 279. He has mild hyperkalemia with potassium of 5.4, acute renal failure with creatinine of 2.2 the urine of 54. Lactic acid is 0.9, bicarbonate is 19. Her liver function tests are normal, total bilirubin is 1.8, AST 68, ALP 119, alkaline phosphatase is 246. Her UA is abnormal positive leukoesterase negative nitrites and few PVCs Patient's had a chest x-ray done which shows right interstitial infiltrate. I reviewed the workup done at [facility], she's had a negative CT abdomen and pelvis done on the . This study was done with contrast. She's had a head CT stand on 06/03/17 and 06/17/17 both of which revealed no acute pathology. She's had 2 x-rays done both of which were negative last x-ray was The patient is being admitted to the hospital for management of sepsis, pneumonia, UTI and multiorgan dysfunction See hospital Course below. June 22 patient seen and examined today, no acute overnight events, patient clinically somewhat better labs are improving. The patient was able to provide some answers to direct questioning. Daughter was at bedside. Urine culture positive for Bhargavi IV Diflucan started June 23 Patient seen and examined, no acute overnight events, white blood cell count still elevated slightly wan yesterday. Patient's urine culture is still growing Candidaresults pending. Plan to get a barium swallow done to evaluate for proper consistency of diet and aspiration. Plan to get MRI of the head today given that the patient's symptoms were present even before the pneumonia was diagnosed. It is likely that the patient had Bhargavi UTI which was not picked up on previous urine studies and was untreated so far. She is on IV Diflucan at this point. I believe that the aspiration pneumonitis is likely a complication of her altered mental status rather than the primary pathology June 24 Patient seen and examined, no acute overnight events, she was on oxygen, drowsy , did not answer any of my questions. According to the staff the patient was given Ativan yesterday and according to the patient's home members patient takes a long time to recover from Ativan. MRI of the head showed a very small stroke. The patient remains confused, lap show signs of improvement, remains on IV antibiotics for aspiration pneumonia vancomycin and Zosyn. IV Diflucan for Bhargavi and the UTI. Sensitivities for the candidiasis to pending plan of care reviewed with the patient's and the son-in-law who are at the bedside today patient has been monitored on telemetry for 3 days. Can be transferred to [facility] status June 25 Overnight developed acute SOB a/w hypoxia and hypercapnia. 97.7 127/98 101 I/O: ? due to urinary incontinence No CP. No new or worsening cough Mild resp distress Lungs with few rales CXR worsening infiltrates, diffuse c/w CHF June 26: Good diuresis with Lasix. Less supplemental O2 requirement. June 27: Doing well. Up in chair. Clearing MS. Has not been requiring BiPAP > 24 hours. Will d/c BiPAP 'failed' barium swallow', partly due to fatigue June 28: Up in chair and breathing comfortably. However, still confused. Has been stable, will transfer to medical floor. Will limit po meds, and hold some of meds on transfer. Continue Zosyn and Diflucan to finish 10 day course. Goldsmith cath still in as patient is on Lasix IV and still very confused. Can probably remove tomorrow. June 29: Up in chair. Still somewhat confused, but awake and has been eating self. Will discontinue goldsmith cath, diflucan, and switch to po lasix. Zosyn thru today then d/c. june 30 patient seen and examined, was sitting in a chair, still confused but much better than before. Wanting to go home. Her kidney function worsened blood urea nitrogen and went up. give 250 cc of saline today. Hold the losartan as well as Lasix today, reassess her kidney function tomorrow if stable can consider for discharge last dose of antibiotics was today july 01 patient seen and examined, no acute overnight events, patient's confusion is much better, she remembers seeing me yesterday. Denies any complaints. Her creatinine is improved from 1.9-1.7 today. Continue to hold losartan and Lasix. We are awaiting placement to intermediate facility July 02 patient seen examined, doing well, awaiting placement was accepted by [facility], patient to be discharged with family who plan to drive her up there Following medications changed from her home med list She will be on aspirin 81mg once daily. quinapril 20mg once daily (was on 40mg bid at home dose decreased due to sera and ckd) Her dose of lasix will be 10mg once daily, with 10meq daily KCL supplementations stop metformin given advanced age as well as renal dysfunction on pepcid 20mg qhs She will continue her dementia and bladder meds as before, continue other medications as prescribed by PCP Sepsis with multi organ dysfunction 06/21: [place] 2 score of 15. Resolved. Pneumonia, Aspirational pna Treated with hcap coverage IV vanco, zosyn. MRSA screen neg. Discontinued Vancomycin 06/25. Continue Zosyn for 10 days thru 06/29- Urinary tract infection: Ecoli as per culture in [facility], UA still suggestive of UTI, iv zosyn should cover. Bhargavi positive, diflucan added. Goldsmith cath in place. Last day 06/29. Will repeat Urine c/s after completion.end UA again today- ua abnl, but pt asymptomatic, cultures neg so far. Altered mental status/ Septic Encephalopathy: much improved since admission. MRI shows a very small stroke. on asa and statin therapy. Abnormal liver function test: CT abdomen is neg, USG is reported neg by ER provider, pt has cholestatic picture, likely related to sepsis. Could also be related to antibiotic use recently. LFT normal at discharge. Acute Kidney Injury: multi-factorial cause. due to overdiuresis, give 2 50 cc of saline today hold Lasix as well as RYAN inhibitor. creat 1.7, stable over last 2 days, resume lasix at 10mg qd, and cut back on dose of quinapril from 40mg bid to 20mg once daily. Will need renal function to be monitored as outpatient. Dementia: Able to carry out ADL, bad with recent memory but lives independently with . home med resumed. Diastolic heart failure grade 2: developed pulmonary edema 06/25. resolved. Hypothyroidism: resume synthroid, TSH mildly elevated, possibly due to inability to take oral medications over the last 1 month. Recheck by PCP in 4 weeks Hyperkalemia: resolved Diabetes: metformin discontinued in light of advanced age and renal failure, follow up with PCP. HTN: amlodipine to continue, on quinapril, and lasix 10mg, along with KCL 10meq , Discharge diagnosis: UTI, Pneumonia, CVA, Delirium, DM, HTN, SERA on CKD - Time Spent with Patient Total time spent providing and/or coordinating discharge services: Greater than 30 minutes Medical - DS: Exam - Constitutional Vitals: Vital Signs Temp Pulse Resp BP BP Pulse Ox 07/02/17 08:00 97.0 F 60 18 139/84 98 07/02/17 04:00 98.5 F 68 18 127/79 96 07/01/17 23:52 98.6 F 65 18 134/78 96 07/01/17 20:00 97.5 F 64 20 115/69 98 07/01/17 16:00 96.8 F L 16 135/71 97 07/01/17 12:00 97.3 F 16 104/70 92 Intake and Output 07/01/17 07/02/17 07/02/17 21:59 05:59 13:59 Intake Total 360 / 360 240 / 240 Output Total 350 / 350 100 / 100 Balance 140 / 140 Intake: Oral 360 / 360 240 / 240 Output: Void Amount 350 / 350 100 / 100 Other: Meal Dinner Percent of Meal Consumed 20% Feeding Ability Assist with Tray Set Up # Voids 1 1 Weight 139 lb 8 oz Additional comments: Constitutional; Afebrile, cooperative, alert, not in distress. Eyes- No icterus, , No periorbital swelling Ears- Ext ear normal, hearing moderately hard to conversation. Neck- Midline trachea, supple Respiratory system: Air Entry equal on both sides, No crackles or wheezing, no rhonchi. CVS- Rate rhythm regular, S1,S2 heard, no gallop, no rub. Abdomen- Soft nontender abdomen, no organomegaly, no tenderness, no guarding or rigidity, [employer]- AOOx2, moving all extremities, no gross focal deficit noted. Medical - DS: Data Procedures and tests throughout hospitalization: Chest x ray IMPRESSION: Mild interstitial infiltrate centrally in the right lung which is superimposed upon mild pulmonary fibrosis . Discoid atelectasis at the right costophrenic sulcus Borderline cardiomegaly Interpreted and Authenticated by: Moe Del Toro 06/21/17 Liver USG Impression: Anatomically normal liver Dilated common bile duct. This is probably a reservoir effect following the prior cholecystectomy and less likely a nonvisualized distal common bile duct stone or stricture at the ampulla. Interpreted and Authenticated by: Moe Del Toro 06/22/17 MRI Brain IMPRESSION: 1. 4 mm acute nonhemorrhagic lacunar infarct in the posterior right frontal cortex near vertex - precentral gyrus 2. Moderate size remote cortical-based infarct in left frontal lobe near vertex 3. Mild atrophy and extensive chronic ischemic changes in the deep cerebral white matter which are similar to prior study over one year ago 4. 6 mm arachnoid cyst over the right frontal convexity - stable and insignificant 5. Moderate ethmoid and mild bilateral maxillary left sphenoid and left frontal sinusitis - new Interpreted and Authenticated by: Linwood Lutz 06/23/17 Carotid Doppler IMPRESSION: Both common, internal and external carotid arteries are widely patent. There is mild uniform intimal thickening in both carotid bifurcations. Antegrade flow present in both vertebral arteries Please correlate with CTA CT Angiography or MRA MR Angiography if surgery is contemplated. Interpreted and Authenticated by: Linwood Lutz 06/24/17 Chest X ray IMPRESSION: Severe CHF Interpreted and Authenticated by: Linwood Lutz 06/25/17 Chest X ray IMPRESSION: Marked improvement in CHF with only minimal residual edema Small region of consolidated atelectasis or, less likely, infiltrate in the left medial base progressing Barium Swallow Eval IMPRESSION: Small amounts of barium spilled prematurely into the vallecula from the tongue base. Vallecular pooling is noted. Epiglottis closed incompletely allowing amounts of descending aspiration which penetrated the vestibule. Please see speech pathology report Labs on day of discharge: Labs from last 24 hours 07/02/17 07/02/17 04:05 04:05 WBC 6.7 RBC 3.66 L Hgb 10.8 L Hct 32.9 L MCV 90.0 MCH 29.6 MCHC 32.9 RDW 16.8 H Plt Count 384 MPV 9.0 Gran % 59.2 Lymph % (Auto) 27.3 Morgan % (Auto) 7.3 Eos % (Auto) 6.0 Baso % (Auto) 0.2 Gran # 3.9 Lymph # (Auto) 1.8 Morgan # (Auto) 0.5 Eos # (Auto) 0.4 Baso # (Auto) 0 Sodium 141 Potassium 3.7 Chloride 101 Carbon Dioxide 26 Anion Gap 14.0 BUN 33 H Creatinine 1.7 H GFR Calculation 28 Glucose 84 Uric Acid 8.1 H Calcium 9.6 Phosphorus 3.5 Magnesium 1.9 Total Bilirubin 0.7 Direct Bilirubin 0.2 GGT 148 H AST 27 ALT 28 Alkaline Phosphatase 61 Lactate Dehydrogenase 191 Total Protein 5.9 Albumin 2.8 L Globulin 3.1 Albumin/Globulin Ratio 0.9 L Triglycerides 108 Medical - DS: A/P - Patient/Caregiver Discharge Instructions Activity: as per physical therapy, increase activity as tolerated Diet: Dysphagia Mech Alter (with thin liquids ) Additional Instructions: Please follow up with PCP in 1 week after discharge from the rehab facility. Recommend Physician at Rehab facility check BMP in 1 week to monitor renal function. I have made changes to your home medication list. Dose of quinapril is now 20mg once daily instead of 40mg twice daily Dose of lasix is 10mg once daily dose of KCL (potassium chloride) is 10meq daily dose of aspirin is 81mg once daily Do not take metformin OT/PT/ST at the rehab facility. Prescriptions: Aspirin 81 mg PO DAILY 60 Days #30 Famotidine [Pepcid] 20 mg PO HS #30 tab Furosemide [Lasix] 10 mg PO DAILY #30 tab Potassium Chloride [Kdur] [facility] [place] [facility] Quinapril HCl 20 mg PO DAILY #30 tab - Follow up Plan Follow up with: Denisha Garcia MD [Primary Care Provider] - Disposition: Xfer SNF Prognosis: Fair Rehab Potential: Fair I certify that the patient requires SNF services: Yes Overall status at discharge: patient is progressing back to baseline Medical - DS: Qual - VTE Deep Vein Thrombosis/Pulmonary Embolism Present on Admission: No
[2017-07-02] MEDS: INSULIN LISPRO 1 UNIT/0.01 ML UNIT SQ SCH ×2 (10:38→12:08)
[2017-07-02] MEDS: OXYBUTYNIN CHLORIDE 5 MG TAB.XL.24H PO SCH (10:39)
[2017-07-02] MEDS: LEVOTHYROXINE 100 MCG TABLET PO SCH (10:39)
[2017-07-02] MEDS: ASPIRIN 81 MG TAB.CHEW CHEWED SCH (10:39)
[2017-07-02] MEDS: HEPARIN 5,000 UNIT/ML VIAL SQ SCH (10:41)
== END 2017-07-02 13:20 | DRG 871 ==
LOC: ED 11:20 → ICU 16:00 → MEDSUR 06-28 12:55
PROVIDERS: ADMIT Internal Medicine; ATTEND Internal Medicine

== ENCOUNTER 2017-09-30 21:00 | Observation (INO) ==
[2017-09-30] MEDS ORDERED: LACTATED RINGERS 1,000 ML IV ONE (21:31)
[2017-09-30] MEDS ORDERED: ACETAMINOPHEN 325 MG TABLET PO ONE (21:31)
--- NOTE | 2017-09-30 21:33 | Emergency Department Note ---
Altered Mental Status HPI - General Chief Complaint: Altered Mental Status Stated Complaint: Of floor since 1600/ALOC Time Seen by Provider: 09/30/17 21:27 Source: EMS Mode of arrival: EMS - History of Present Illness HPI Narrative: This patient has been confused today and has a fever and family thinks she might have a UTI. She is up and admitted this year for sepsis and UTI. Patient denies any specific symptoms. However she definitely seems somewhat confused. - Related Data Home Medications Medication Instructions Recorded Confirmed Donepezil HCl [Aricept] 10 mg PO HS 04/10/16 10/01/17 Levothyroxine [Synthroid] 100 mcg PO DAILY 04/10/16 10/01/17 Memantine HCl 5 mg PO DAILY 04/10/16 10/01/17 Atorvastatin [Lipitor] 40 mg PO HS 06/21/17 10/01/17 Oxybutynin Chloride [Oxybutynin 10 mg PO DAILY 06/21/17 10/01/17 Chloride ER] Cyclobenzaprine [Flexeril] 10 mg PO DAILYP PRN 09/30/17 10/01/17 Docusate Sodium [Dulcolax Stool 100 mg PO BID 09/30/17 10/01/17 Softener] Lactobacillus Acidophilus 1 each PO BID 09/30/17 10/01/17 [Acidophilus Lactobacilli] Lisinopril [Zestril] 5 mg PO DAILY 09/30/17 10/01/17 Magnesium Oxide [Magox 400] 400 mg PO DAILY 09/30/17 10/01/17 Potassium Chloride [Kdur] 20 meq PO QAMCC 09/30/17 09/30/17 Previous Rx's Medication Instructions Recorded Aspirin 81 mg PO DAILY 60 Days #30 07/02/17 Famotidine [Pepcid] 20 mg PO HS #30 tab 07/02/17 Allergies Allergy/AdvReac Type Severity Reaction Status Date / Time codeine AdvReac Mild JITTERY, Verified 07/18/17 16:59 STOMACH ACHE, HEAD ACHE hydrocodone AdvReac Mild JITTERY, Verified 07/18/17 16:59 STOMACH ACHE, HEAD ACHE tramadol [From Ultram] AdvReac Mild JITTERY, Verified 07/18/17 16:59 STOMACH ACHE, HEAD ACHE Review of Systems All systems ED: reviewed and negative except as stated. 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 Absent: distention, tenderness Neurological: Present: alert Psychiatric: Present: normal affect, normal mood Skin: Present: warm, dry, intact Course Vital Signs Temperature 101.0 F H 09/30/17 21:02 Pulse Rate 96 H 09/30/17 21:02 Respiratory Rate 21 09/30/17 21:02 Blood Pressure 168/79 09/30/17 21:02 Pulse Oximetry (%) 94 09/30/17 21:02 Temperature 98.1 F 10/01/17 04:00 Pulse Rate 83 10/01/17 04:00 Respiratory Rate 18 10/01/17 04:00 Blood Pressure 173/83 10/01/17 04:00 Pulse Oximetry (%) 95 10/01/17 04:00 Altered Mental Status - [facility] Narrative Medical decision making narrative: Patient had CT chest x-ray and urinalysis and blood work were all negative. I discussed the case with Dr. Zamudio and we will admit her observation for fever and confusion. - Lab Data Lab results reviewed: Yes I reviewed the patient's lab results. Result diagrams: 10/01/17 04:55 09/30/17 21:36 Lab Results 09/30/17 09/30/17 09/30/17 Range/Units 21:36 21:36 21:48 WBC 10.7 (4.5-11.0) K/mcL RBC 3.61 L (4.00-5.20) M/mcL Hgb 11.1 L (12.0-15.0) g/dL Hct 34.1 L (36.0-48.0) % MCV 94.3 (80.0-100.0) fL MCH 30.8 (26.0-34.0) pg MCHC 32.7 (31.0-36.0) g/dL RDW 16.4 H (11.5-14.5) % Plt Count 196 (140-440) K/mcL MPV 8.3 (7.4-10.4) fL Gran % 87.5 H (38.0-78.0) % Lymph % (Auto) 6.3 L (15.5-49.0) % [place] % (Auto) 5.9 (1.0-12.0) % Eos % (Auto) 0.3 (0.0-7.0) % Baso % (Auto) 0 (0.0-2.0) % Gran # 9.4 H (1.8-8.0) K/mcL Lymph # (Auto) 0.7 L (1.5-4.8) K/mcL [place] # (Auto) 0.6 (0.1-0.9) K/mcL Eos # (Auto) 0 (0.0-0.7) K/mcL Baso # (Auto) 0 (0.0-0.3) K/mcL VBG Lactic Acid 1.1 (0.5-2.2) mmol/L Sodium 140 (133-145) mmol/L Potassium 3.9 (3.3-5.1) mmol/L Chloride 99 (96-108) mmol/L Carbon Dioxide 28 (22-30) mmol/L Anion Gap 13.0 (8-16) BUN 18 (8-23) mg/dl Creatinine 0.9 (0.6-1.1) mg/dl GFR Calculation 60 Glucose 116 H (70-105) mg/dL Calcium 10.2 (8.6-10.4) mg/dl Total Bilirubin 1.7 H (0.0-1.0) mg/dL AST 19 (0-37) U/l ALT 11 (0-40) U/l Alkaline Phosphatase 19 L (39-117) U/L Total Protein 7.0 (5.9-8.4) gm/dL Albumin 4.3 (3.2-5.2) gm/dL Globulin 2.7 (2.2-3.7) gm/dL Albumin/Globulin Ratio 1.6 (1.0-2.3) Urine Color Urine Appearance Urine pH (5.0-9.0) Ur Specific Hope (1.000-1.035) Urine Protein (NEG) mg/dL Urine Glucose (UA) (NEG) mg/dL Urine Ketones (NEG) mg/dL Urine Occult Blood (<0.03) mg/dL Urine Nitrate (NEG) Urine Bilirubin (NEG) mg/dL Urine Urobilinogen (NEG) mg/dL Ur Leukocyte Esterase (NEG) /uL Urine RBC (0-1) /hpf Urine WBC (0-4) /hpf Ur Squamous Epith Cells (0-4) /hpf Ur Transition Epith Cell (0-2) /hpf Urine Bacteria (0) /hpf Urine Mucus (0) /hpf Ur Culture Indicated? 09/30/17 Range/Units 21:48 WBC (4.5-11.0) K/mcL RBC (4.00-5.20) M/mcL Hgb (12.0-15.0) g/dL Hct (36.0-48.0) % MCV (80.0-100.0) fL MCH (26.0-34.0) pg MCHC (31.0-36.0) g/dL RDW (11.5-14.5) % Plt Count (140-440) K/mcL MPV (7.4-10.4) fL Gran % (38.0-78.0) % Lymph % (Auto) (15.5-49.0) % [place] % (Auto) (1.0-12.0) % Eos % (Auto) (0.0-7.0) % Baso % (Auto) (0.0-2.0) % Gran # (1.8-8.0) K/mcL Lymph # (Auto) (1.5-4.8) K/mcL [place] # (Auto) (0.1-0.9) K/mcL Eos # (Auto) (0.0-0.7) K/mcL Baso # (Auto) (0.0-0.3) K/mcL VBG Lactic Acid (0.5-2.2) mmol/L Sodium (133-145) mmol/L Potassium (3.3-5.1) mmol/L Chloride (96-108) mmol/L Carbon Dioxide (22-30) mmol/L Anion Gap (8-16) BUN (8-23) mg/dl Creatinine (0.6-1.1) mg/dl GFR Calculation Glucose (70-105) mg/dL Calcium (8.6-10.4) mg/dl Total Bilirubin (0.0-1.0) mg/dL AST (0-37) U/l ALT (0-40) U/l Alkaline Phosphatase (39-117) U/L Total Protein (5.9-8.4) gm/dL Albumin (3.2-5.2) gm/dL Globulin (2.2-3.7) gm/dL Albumin/Globulin Ratio (1.0-2.3) Urine Color Yellow Urine Appearance Clear Urine pH 7.0 (5.0-9.0) Ur Specific Hope 1.012 (1.000-1.035) Urine Protein 30 A (NEG) mg/dL Urine Glucose (UA) Negative (NEG) mg/dL Urine Ketones 5/tr A (NEG) mg/dL Urine Occult Blood Neg (<0.03) mg/dL Urine Nitrate Neg (NEG) Urine Bilirubin Neg (NEG) mg/dL Urine Urobilinogen Neg (NEG) mg/dL Ur Leukocyte Esterase Neg (NEG) /uL Urine RBC 1 (0-1) /hpf Urine WBC 1 (0-4) /hpf Ur Squamous Epith Cells < 1 (0-4) /hpf Ur Transition Epith Cell < 1 (0-2) /hpf Urine Bacteria 0 (0) /hpf Urine Mucus Few (0) /hpf Ur Culture Indicated? No - Radiology Data Radiology results reviewed: Yes I reviewed the patient's radiology results. Disposition Pt seen by ESCALATOR CONSTRUCTOR/PA only: No Clinical Impression: Weakness, Altered mental status Disposition: Xfer As Outpt/Obs ([facility]) Condition: Fair
[2017-09-30 22:41] LABS: Basophils # (Auto) 0 K/mcL (0.0-0.3); Basophils % (Auto) 0 % (0.0-2.0); Eosinophils # (Auto) 0 K/mcL (0.0-0.7); Eosinophils % (Auto) 0.3 % (0.0-7.0); Granulocytes % (Auto) 87.5 % (38.0-78.0); Lymphocytes # (Auto) 0.7 K/mcL (1.5-4.8); Lymphocytes % (Auto) 6.3 % (15.5-49.0); Mean Cell Volume 94.3 fL (80.0-100.0); Mean Corpuscular HGB Conc 32.7 g/dL (31.0-36.0); Mean Corpuscular Hemoglobin 30.8 pg (26.0-34.0); Monocytes # (Auto) 0.6 K/mcL (0.1-0.9); Monocytes % (Auto) 5.9 % (1.0-12.0); Platelet Count 196 K/mcL (140-440); RBC 3.61 M/mcL (4.00-5.20); Red Cell Distribution Width 16.4 % (11.5-14.5)
[2017-09-30 22:42] LABS: Appearance,Urine CLEAR; Bacteria,Urine 0 /hpf (0); Bilirubin,Urine NEG (NEG); Color,Urine YELLOW; Glucose,Urine (UA) NEGATIVE (NEG); Leukocyte Esterase,Urine NEG /uL (NEG); Mucus,Urine FEW /hpf (0); Protein,Urine 30 mg/dL (NEG); Specific Gravity,Urine 1.012 (1.000-1.035); Urine Blood NEG mg/dL (<0.03); Urine RBC 1 /hpf (0-1); Urine Squamous Epithelial Cell < 1 /hpf (0-4); Urine Transitional Epi Cells < 1 /hpf (0-2); Urine WBC 1 /hpf (0-4); Urobilinogen,Urine NEG (NEG)
[2017-09-30 22:52] LABS: ALT/SGPT 11 U/l (0-40); Albumin 4.3 gm/dL (3.2-5.2); Albumin/Globulin Ratio 1.6 (1.0-2.3); Alkaline Phosphatase 19 U/L (39-117); Blood Urea Nitrogen 18 mg/dl (8-23)
[2017-10-01] MEDS ORDERED: IOPAMIDOL 100 ML BOTTLE IV ONE (00:28)
[2017-10-01] MEDS ORDERED: oxyCODONE HCL 5 MG TABLET PO PRN (00:37)
[2017-10-01] MEDS ORDERED: VANCOMYCIN PER PHARMACY IV ONE (00:37)
[2017-10-01] MEDS ORDERED: VANCOMYCIN 1,000 MG in 0.9 % SODIUM CHLORIDE 250 ML IV ONE ×2 (00:37→17:00)
[2017-10-01] MEDS ORDERED: ALBUTEROL SULFATE 2.5 MG/3 ML NEBULIZER NEB PRN (00:37)
[2017-10-01] MEDS ORDERED: ONDANSETRON 4 MG/2 ML VIAL IV PRN (00:37)
[2017-10-01] MEDS ORDERED: NALOXONE HCL 0.4 MG/ML VIAL IV PRN (00:37)
[2017-10-01] MEDS ORDERED: DEXTROSE 31 GM ORAL.SUSP PO PRN (01:10)
[2017-10-01] MEDS ORDERED: DEXTROSE 50% 50 ML VIAL IV PRN (01:10)
[2017-10-01] MEDS: PIPERACILLIN SODIUM/TAZOBACTAM 3.375 GM in DEXTROSE 5% IN WATER 50 ML IV SCH ×4 (01:19→21:36)
--- NOTE | 2017-10-01 01:28 | Internal Med History&Physical ---
Medical - H&P: HPI Patient information: Note initiated : 10/01/17 at 1:18 am Service Date, if different from initiated Date: [] Patient: Lois Guy 81 y/o F admitted on 10/01/17 for Of floor since 1600/ ALOC. Chief Complaint: [] History of present illness: Ms. Guy is a 81 year old Female with multiple medical issues, living with her daughter, presents to the ER for confusion for 1 day, according to the daugther she has been complaining of low back pain x 2 days, has received cyclobenzaprine for 2 days, which made her drowsy, she also has pain in the hips secondary to Arthritis, and has recently received a steroid injection. The patient since this morning has not been her self, she is more confused and unable to carry out a meaningful conversation. The daugther denies any focal changes, just notes she is not her self. She denies any acute complaints like cough, chest pain, shortness of breath, has been warm to touch, no urinary complaints reported the patients was brought to the ER for further evaluation. The last time the patient had a similar presentation, she took a while to develop full sepsis and had to be seen in the ER 2 times before a source was identified. the patient d oes have h/o multipe tia, lacunar infarcts (had one on last admission), has swallowing issues too. The patient marciano also reports a swelling inside the neck on the left side which is new? In the ER the patient had fever of 101, hr in the 90's bp stable, on room air, labs show wbc of 10, hb 11.1. Platelet of 196. Lactic acid is 1.1. Left lites are stable creatinine 0.9 glucose 116. UA is negative. Chest x-ray shows cardiomegaly, possible infiltrate according to my view on the left upper lobe, official interpretation pending. Unable to determine if any retrocardiac infiltrate is present. Mild congestion. CT head is reported as negative by the ED physician. Official report pending. The patient is being admitted to the hospital as obs for further workup and monitoring. 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 Medical - H&P: Meds Home Medications Medication Instructions Recorded Confirmed Type Donepezil HCl [Aricept] 10 mg PO HS 04/10/16 09/30/17 History Levothyroxine [Synthroid] 100 mcg PO DAILY 04/10/16 09/30/17 History Memantine HCl 5 mg PO DAILY 04/10/16 09/30/17 History Atorvastatin [Lipitor] 40 mg PO HS 06/21/17 09/30/17 History Oxybutynin Chloride [Oxybutynin 10 mg PO DAILY 06/21/17 09/30/17 History Chloride ER] Aspirin 81 mg PO DAILY 60 Days #30 07/02/17 09/30/17 Rx Famotidine [Pepcid] 20 mg PO HS #30 tab 07/02/17 09/30/17 Rx Cyclobenzaprine [Flexeril] 10 mg PO DAILYP PRN 09/30/17 09/30/17 History Docusate Sodium [Dulcolax Stool 100 mg PO BID 09/30/17 09/30/17 History Softener] Lactobacillus Acidophilus 1 each PO BID 09/30/17 09/30/17 History [Acidophilus Lactobacilli] Lisinopril [Zestril] 5 mg PO DAILY 09/30/17 09/30/17 History Magnesium Oxide [Magox 400] 400 mg PO DAILY 09/30/17 09/30/17 History Potassium Chloride [Kdur] 20 meq PO QAC 09/30/17 09/30/17 History Allergies Allergy/AdvReac Type Severity Reaction Status Date / Time codeine AdvReac Mild JITTERY, Verified 07/18/17 16:59 STOMACH ACHE, HEAD ACHE hydrocodone AdvReac Mild JITTERY, Verified 07/18/17 16:59 STOMACH ACHE, HEAD ACHE tramadol [From Ultram] AdvReac Mild JITTERY, Verified 07/18/17 16:59 STOMACH ACHE, HEAD ACHE Medical - H&P: Exam - Constitutional Vitals: Temp Pulse Resp BP Pulse Ox 98.8 F 98 H 16 183/93 94 10/01/17 00:33 10/01/17 00:33 10/01/17 00:33 10/01/17 00:33 10/01/17 00:33 Exam: GENERAL: The patient is a well-developed, well-nourished in no apparent distress. Is alert and oriented x1. VITAL SIGNS: Reviewed and as noted elsewhere. HEENT: Head is normocephalic and atraumatic. Extraocular muscles are intact. Pupils are equal, round, and reactive to light. Nares appeared normal. Mouth appears any without lesions. Mucous membranes are moist. left side of the oropharynx is full, no obvious erythema or abcess noted. NECK: Normal to inspection, Supple, No lymphadenopathy or thyromegaly. LUNGS: Air entry equal on both sides, no wheezing, crackles or rhonchi noted. No accessory muscles of respiration HEART: Regular rate and rhythm normal, S1 and S2 heard, no Gallop, S3 or Rub Noted, systolic murmur left steranal base, . ABDOMEN: Soft, nontender, and nondistended. Positive bowel sounds. No hepatosplenomegaly was noted. EXTREMITIES: No cyanosis, clubbing, rash, lesions, edema present ++ NEUROLOGIC: Cranial nerves II through XII are grossly intact. Motor and Sensory System Grossly Intact PSYCHIATRIC: Normal affect, Normal Mood. Appropriate Behavior. SKIN: No ulceration or wounds noted, No jaundice, No rash noted. Back: No obvious lesions/ ulcer or cellutlitis noted. Medical - H&P: Reslt - Labs CBC & Chem 7: 09/30/17 21:36 09/30/17 21:36 Labs: Short CBC 09/30/17 Range/Units 21:36 WBC 10.7 (4.5-11.0) K/mcL Hgb 11.1 L (12.0-15.0) g/dL Hct 34.1 L (36.0-48.0) % Plt Count 196 (140-440) K/mcL BMP 09/30/17 21:36 Sodium 140 Potassium 3.9 Chloride 99 Carbon Dioxide 28 BUN 18 Creatinine 0.9 Glucose 116 H Calcium 10.2 Liver Function 09/30/17 Range/Units 21:36 Total Bilirubin 1.7 H (0.0-1.0) mg/dL AST 19 (0-37) U/l ALT 11 (0-40) U/l Alkaline Phosphatase 19 L (39-117) U/L Albumin 4.3 (3.2-5.2) gm/dL Urine 09/30/17 Range/Units 21:48 Urine Color Yellow Urine Appearance Clear Urine pH 7.0 (5.0-9.0) Ur Specific [place] 1.012 (1.000-1.035) Urine Protein 30 A (NEG) mg/dL Urine Glucose (UA) Negative (NEG) mg/dL Medical - H&P: A/P - Narrative A/P Narrative: A/P Altered Mental status Fever Possible pna left oropharynx swelling h/o TIA/ CVA HTN HLD DM Diastolic heart failure Dementia osteoarthritis Plan patient has elevated wbc from [place] with neutrophils, likely some infection brewing no suspicion for meningitis, no photophobia, no headache, no neck stiffness on exam today patient likely may have had aspiration pneumonia, given her h/o being drowys and sleepy for 2 days, will treat as HCAP pna for now with IV vanco and zosyn, get CT chest to confirm, should CT db eg, then alternative source will need to be found, since we are still investigation, will place pt as obs consider lower back infection/ hip infection, althouht pt does not complain of pain now, its plausible given her recent steroid injection. check ESR and CRP, if high and PNA is neg, will get imaging of the lower back resume home meds as appropriate for the left neck swelling, will get CT with contrast in AM. DVT hep sq diet cardiac, diabetic DNR code status Plan of care reviewded with luis
[2017-10-01] MEDS: ACETAMINOPHEN 325 MG TABLET PO PRN ×2 (02:14→19:21)
[2017-10-01] MEDS ORDERED: ACETAMINOPHEN 325 MG TABLET PO ONE (02:15)
--- NOTE | 2017-10-01 04:01 | XRay Report ---
CLINICAL INFORMATION: Dyspnea COMPARISON: 06/27/2017 and 04/10/2016 FINDINGS: The heart is markedly enlarged but unchanged. Central pulmonary arteries also appear to be enlarged suggesting pulmonary hypertension. Peripheral pulmonary arteries are mildly distended and there is mild interstitial edema.. Minor airspace disease noted in the right base - likely atelectasis. IMPRESSION: Mild CHF. Asymmetric enlargement of the central pulmonary arteries suggests pulmonary hypertension Interpreted and Authenticated by: Linwood Lutz 10/01/17
--- NOTE | 2017-10-01 04:48 | Cat Scan Report ---
CLINICAL INFORMATION: Effusion COMPARISON: None. TECHNIQUE: 2.5 mm helical slices were obtained in the skull base to vertex. Following reconstruction, axial reformatted images were reviewed at bone and parenchymal windows. The exam was performed using radiation dose optimization techniques including, but not limited to, automated exposure control, adjustment of the mA and/or kV according to patient size and use of iterative reconstruction technique. FINDINGS: The ventricles, sulci, fissures, and cisterns are symmetrically enlarged compatible with mild atrophy. This is unchanged. There is no subdural hemorrhage or other extra-axial fluid collection or mass appreciated. Moderate chronic cortical based infarct in the left frontal lobe seen - as before. Moderate patchy chronic ischemic changes in the deep cerebral white matter and lacunar infarcts in both external capsules are again noted. There is no intracerebral hemorrhage, edema, mass effect or other acute finding. Bone windows again show degenerative changes in both TMJs and intra-articular articular calcifications. IMPRESSION: Mild atrophy and chronic ischemic changes in the deep cerebral white matter - typical for age Moderate remote cortical-based infarct in the left frontal lobe. No hemorrhage edema or other acute finding. Mild degenerative change in both TMJs intra-articular calcifications - stable Interpreted and Authenticated by: Linwood Lutz 10/01/17
[2017-10-01 06:51] LABS: Basophils # (Auto) 0 K/mcL (0.0-0.3); Basophils % (Auto) 0.1 % (0.0-2.0); Eosinophils # (Auto) 0 K/mcL (0.0-0.7); Eosinophils % (Auto) 0.2 % (0.0-7.0); Granulocytes % (Auto) 80.4 % (38.0-78.0); Lymphocytes % (Auto) 10.8 % (15.5-49.0); Mean Cell Volume 93.5 fL (80.0-100.0); Mean Corpuscular HGB Conc 32.6 g/dL (31.0-36.0); Mean Corpuscular Hemoglobin 30.5 pg (26.0-34.0); Monocytes # (Auto) 0.8 K/mcL (0.1-0.9); Monocytes % (Auto) 8.5 % (1.0-12.0); Platelet Count 173 K/mcL (140-440); Red Cell Distribution Width 16.3 % (11.5-14.5)
[2017-10-01] MEDS: 0.9 % SODIUM CHLORIDE 10 ML SYRINGE IV SCH ×3 (06:59→21:37)
[2017-10-01] MEDS ORDERED: VANCOMYCIN PER PHARMACY IV SCH (07:00)
[2017-10-01] MEDS ORDERED: FUROSEMIDE 20 MG/2 ML VIAL IV ONE (07:11)
[2017-10-01 07:57] LABS: ALT/SGPT 9 U/l (0-40); Albumin 3.6 gm/dL (3.2-5.2); Albumin/Globulin Ratio 1.6 (1.0-2.3); Alkaline Phosphatase 15 U/L (39-117); Bilirubin,Direct 0.2 mg/dL (0.0-0.3); Blood Urea Nitrogen 15 mg/dl (8-23); C-Reactive Protein 3.8 mg/dl (0.0-0.8); Gamma Glutamyl Transpeptidase 26 U/L (5-36); Uric Acid 3.7 mg/dL (2.5-8.0)
[2017-10-01] MEDS ORDERED: ONDANSETRON ODT 4 MG TABLET SL PRN (08:09)
[2017-10-01] MEDS: INSULIN LISPRO 1 UNIT/0.01 ML UNIT SQ SCH ×4 (08:44→21:37)
[2017-10-01] MEDS: LEVOTHYROXINE 100 MCG TABLET PO SCH (08:44)
[2017-10-01] MEDS ORDERED: DOCUSATE SODIUM 100 MG CAPSULE PO SCH (09:00)
[2017-10-01 09:05] LABS: Erythrocyte Sedimentation Rate 25 mm/hr (0-20)
[2017-10-01] MEDS: HEPARIN 5,000 UNIT/ML VIAL SQ SCH ×2 (10:29→21:35)
[2017-10-01] MEDS: LACTOBACILLUS 1 CAPSULE PO SCH ×2 (10:29→21:37)
[2017-10-01] MEDS: ASPIRIN 81 MG TAB.CHEW PO SCH (10:29)
[2017-10-01] MEDS: MEMANTINE 10 MG TABLET PO SCH (10:30)
[2017-10-01] MEDS: DOCUSATE SODIUM 100 MG CAPSULE PO SCH ×2 (10:30→21:37)
[2017-10-01] MEDS: OXYBUTYNIN CHLORIDE 5 MG TAB.XL.24H PO SCH (10:30)
[2017-10-01] MEDS: LISINOPRIL 5 MG TABLET PO SCH (10:31)
[2017-10-01] MEDS: MAGNESIUM OXIDE 400 MG TABLET PO SCH (10:31)
--- NOTE | 2017-10-01 13:00 | Cat Scan Report ---
CLINICAL INFORMATION: Left upper chest swelling and pain COMPARISON: None. TECHNIQUE: 80 cc of Isovue-300 were injected intravenously, and 25 seconds later, 0.625 mm helical slices were obtained from the lung apices through the bases. Following reconstruction, 2.5 mm sagittal, coronal and axial reformations were processed and reviewed at lung, mediastinal and bone windows. 7 mm axial MIPS were also obtained to optimize pulmonary nodule detection. The exam was performed using radiation dose optimization techniques including, but not limited to, automated exposure control, adjustment of the mA and/or kV according to patient size and use of iterative reconstruction technique. FINDINGS: Mediastinal windows show moderate cardiomegaly with very heavy atherosclerotic calcific and fibrofatty plaque in the coronary arteries. The central pulmonary arteries are markedly enlarged: The main pulmonary artery diameter is 4.6 cm. Findings well pulmonary hypertension. Pulmonary arteries are suboptimally opacified; however, no emboli appreciated. Thoracic aorta is normal in contour and caliber with diffuse intimal thickening.. There are no abnormally enlarged lymph nodes in the mediastinal, hilar or axillary regions. Esophagus is grossly normal. Pulmonary parenchymal windows show mild groundglass in a peribronchovascular distribution in the left lung and, to a lesser extent the right lung. Suspect pulmonary edema edema related to resolving CHF. Small bilateral pleural effusions are incidentally noted. Bone windows show mild chronic compression fractures of all thoracic vertebral bodies with ankylosis and syndesmophytes anteriorly. Images through the abdomen show moderate atrophy of the pancreas. There is dilatation of the common bile duct - likely due to post cholecystomy. Visualized liver and spleen are normal IMPRESSION: 1. Mild groundglass peribronchovascular airspace disease - more prominent in the left lung. This is likely edema related to resolving CHF. 2. Marked enlargement of the central pulmonary arteries compatible with pulmonary hypertension. No evidence of emboli. The right heart chambers are only equivocally enlarged. 3. Small bilateral pleural effusions likely related prior CHF Interpreted and Authenticated by: Linwood Lutz 10/01/17
--- NOTE | 2017-10-01 13:12 | Cat Scan Report ---
CLINICAL INFORMATION: Left neck swelling COMPARISON: 04/10/2016 CT TECHNIQUE: 80 cc of Isovue-300 were injected intravenously and 25 seconds later, 2.5 mm helical slices were obtained from the inferior orbit through the supraclavicular region. Following reconstruction, 2.5 mm sagittal and coronal reformations were processed. The exam was reviewed at bone and soft tissue windows . The exam was performed using radiation dose optimization techniques including, but not limited to, automated exposure control, adjustment of the mA and/or kV according to patient size and use of iterative reconstruction technique. FINDINGS: There is no mass adenopathy or other pathologic entity that would account for left neck swelling. Scattered superficial and deep cervical lymph nodes are the benign size range and unchanged in 2016 comparison. The carotid and jugular vasculature systems are normal. The thyroid is not recognized and may have been surgically resected. True and false focal cords, epiglottis, epiglottic folds, tongue base and prevertebral soft tissues are normal. The parotid and submandibular glands are normal in size configuration and attenuation. Cervical spine is normal in curvature and alignment. There is diffuse intramedullary sclerosis within the vertebral bodies which is unchanged from the study 1.5 years ago. IMPRESSION: No mass, adenopathy or cause identified for left neck swelling Thyroid not identified. Minimal certainly resected or be absent. Please] thyroid function tests. Diffuse intramedullary sclerosis within the cervical spine and visualized skull. It is identical to the CT 1.5 years ago and thus, is presumably a benign process. Please correlate with CBC and reticulocyte count. Moderate bilateral TMJ degeneration stable Interpreted and Authenticated by: Linwood Lutz 10/01/17
[2017-10-01 17:15] LABS: Appearance,Urine CLEAR; Bacteria,Urine 0 /hpf (0); Bilirubin,Urine NEG (NEG); Color,Urine COLORLESS; Glucose,Urine (UA) NEGATIVE (NEG); Leukocyte Esterase,Urine NEG /uL (NEG); Mucus,Urine FEW /hpf (0); Protein,Urine NEG (NEG); Specific Gravity,Urine 1.013 (1.000-1.035); Urine Blood NEG mg/dL (<0.03); Urine RBC 2 /hpf (0-1); Urine Squamous Epithelial Cell 0 /hpf (0-4); Urine WBC < 1 /hpf (0-4); Urobilinogen,Urine NEG (NEG)
[2017-10-01] MEDS: ATORVASTATIN 20 MG TABLET PO SCH (21:36)
[2017-10-01] MEDS: FAMOTIDINE 20 MG TABLET PO SCH (21:37)
[2017-10-01] MEDS: DONEPEZIL 10 MG TABLET PO SCH (21:37)
[2017-10-02] MEDS: PIPERACILLIN SODIUM/TAZOBACTAM 3.375 GM in DEXTROSE 5% IN WATER 50 ML IV SCH ×5 (02:06→23:59)
[2017-10-02 05:39] LABS: Basophils # (Auto) 0 K/mcL (0.0-0.3); Basophils % (Auto) 0.3 % (0.0-2.0); Eosinophils # (Auto) 0.2 K/mcL (0.0-0.7); Eosinophils % (Auto) 3.3 % (0.0-7.0); Granulocytes % (Auto) 73.3 % (38.0-78.0); Lymphocytes % (Auto) 14.8 % (15.5-49.0); Mean Cell Volume 94.3 fL (80.0-100.0); Mean Corpuscular HGB Conc 32.5 g/dL (31.0-36.0); Mean Corpuscular Hemoglobin 30.6 pg (26.0-34.0); Monocytes # (Auto) 0.6 K/mcL (0.1-0.9); Monocytes % (Auto) 8.3 % (1.0-12.0); Platelet Count 162 K/mcL (140-440); RBC 3.17 M/mcL (4.00-5.20); Red Cell Distribution Width 16.1 % (11.5-14.5)
[2017-10-02] MEDS: 0.9 % SODIUM CHLORIDE 10 ML SYRINGE IV SCH ×3 (06:02→21:40)
[2017-10-02 06:21] LABS: ALT/SGPT 10 U/l (0-40); Albumin 3.4 gm/dL (3.2-5.2); Albumin/Globulin Ratio 1.5 (1.0-2.3); Alkaline Phosphatase 15 U/L (39-117); Bilirubin,Direct 0.3 mg/dL (0.0-0.3); Blood Urea Nitrogen 12 mg/dl (8-23); Gamma Glutamyl Transpeptidase 26 U/L (5-36); Uric Acid 2.8 mg/dL (2.5-8.0)
[2017-10-02] MEDS: LEVOTHYROXINE 100 MCG TABLET PO SCH (08:00)
[2017-10-02] MEDS: INSULIN LISPRO 1 UNIT/0.01 ML UNIT SQ SCH ×4 (08:01→22:08)
[2017-10-02] MEDS ORDERED: VANCOMYCIN 1,000 MG in 0.9 % SODIUM CHLORIDE 250 ML IV SCH (10:00)
[2017-10-02] MEDS ORDERED: DEXTROSE 5% IN WATER 1,000 ML IV SCH (10:45)
[2017-10-02] MEDS: HEPARIN 5,000 UNIT/ML VIAL SQ SCH ×2 (11:22→22:08)
[2017-10-02] MEDS: DOCUSATE SODIUM 100 MG CAPSULE PO SCH ×2 (11:22→21:39)
[2017-10-02] MEDS: OXYBUTYNIN CHLORIDE 5 MG TAB.XL.24H PO SCH (11:23)
[2017-10-02] MEDS: ASPIRIN 81 MG TAB.CHEW PO SCH (11:23)
[2017-10-02] MEDS: MAGNESIUM OXIDE 400 MG TABLET PO SCH (11:24)
[2017-10-02] MEDS: MEMANTINE 10 MG TABLET PO SCH (11:24)
[2017-10-02] MEDS: LISINOPRIL 5 MG TABLET PO SCH (11:24)
[2017-10-02] MEDS: LACTOBACILLUS 1 CAPSULE PO SCH ×2 (11:27→21:00)
[2017-10-02] MEDS: DEXTROSE 5%-LR W/20MEQ KCL 1,000 ML IV SCH (13:41)
[2017-10-02] MEDS: PANTOPRAZOLE 40 MG VIAL IV SCH (13:47)
--- NOTE | 2017-10-02 13:48 | Internal Med Progress Note ---
Medical - PN: Subj Patient information: Note initiated : 10/02/17 at 1:43 pm Service Date, if different from initiated Date: [] Patient: Lois Guy 81 y/o F admitted on 10/01/17 for Of floor since 1600/ ALOC. Chief Complaint: [] Interval history: Ms. Guy is a 81 year old Female with multiple medical issues, living with her daughter, presents to the ER for confusion for 1 day, according to the daugther she has been complaining of low back pain x 2 days, has received cyclobenzaprine for 2 days, which made her drowsy, she also has pain in the hips secondary to Arthritis, and has recently received a steroid injection. The patient since this morning has not been her self, she is more confused and unable to carry out a meaningful conversation. The daugther denies any focal changes, just notes she is not her self. She denies any acute complaints like cough, chest pain, shortness of breath, has been warm to touch, no urinary complaints reported the patients was brought to the ER for further evaluation. The last time the patient had a similar presentation, she took a while to develop full sepsis and had to be seen in the ER 2 times before a source was identified. the patient d oes have h/o multipe tia, lacunar infarcts (had one on last admission), has swallowing issues too. The patient marciano also reports a swelling inside the neck on the left side which is new? In the ER the patient had fever of 101, hr in the 90's bp stable, on room air, labs show wbc of 10, hb 11.1. Platelet of 196. Lactic acid is 1.1. Left lites are stable creatinine 0.9 glucose 116. UA is negative. Chest x-ray shows cardiomegaly, possible infiltrate according to my view on the left upper lobe, official interpretation pending. Unable to determine if any retrocardiac infiltrate is present. Mild congestion. CT head is reported as negative by the ED physician. Official report pending. The patient is being admitted to the hospital as obs for further workup and monitoring. 10/02 Patient seen and examined, no acute overnight events. This morning patient remained afebrile but is still confused. No evidence of infection has been found so far. We will discontinue vancomycin. Continue Zosyn given possibility of mild aspiration pneumonitis. CT scan showed some peribronchial involvement which the radiologist attributed to CHF. Patient is not able to tolerate p.o. diet well. Start on gentle hydration and see if this helps with patient's mental status. Otherwise patient denies any acute complaints. She refuses to participate in physical therapy. And does not have much of an appetite Pertinent ROS: Denies headache, dizziness Denies chest pain, palpitations Denies cough or shortness of breath Denies abdominal pain, nausea or vomiting. - Constitutional Vitals: Vital Signs Temp Pulse Resp BP Pulse Ox 98.9 F 63 16 128/76 93 10/02/17 08:00 10/02/17 04:00 10/02/17 08:00 10/02/17 08:00 10/02/17 08:00 Period Temp Pulse Resp BP Sys/Bañuelos Pulse Ox Last 24 Hr 98.6 F-99.5 F 63-90 16-20 128-173/56-90 87-98 Intake and Output 10/01/17 10/02/17 10/02/17 21:59 05:59 13:59 Intake Total 300 / 300 500 / 500 50 / 50 Output Total 503 / 503 802 / 802 Balance -203 / -203 -302 / -302 50 / 50 Weight 158 lb Intake & Output: Intake & Output 10/01/17 10/02/17 10/02/17 21:59 05:59 13:59 Intake Total 300 / 300 500 / 500 50 / 50 Output Total 503 / 503 802 / 802 Balance -203 / -203 -302 / -302 50 / 50 Weight 158 lb Intake: IV 300 / 300 100 / 100 50 / 50 Zosyn 3.375 gm In Dextrose 5% 50 / 50 100 / 100 50 / 50 in Water 50 ml @ 100 mls/hr IV Q6H [facility] Rx#:[id number] Oral 400 / 400 Output: Void Amount 500 / 500 800 / 800 # of times incontinent of urine 3 / 3 2 / 2 Other: Meal Dinner Percent of Meal Consumed 5%, bites Feeding Ability Total Assistance # Voids 1 1 Exam: Constitutional; Afebrile, cooperative, alert, not in distress. Eyes- No icterus, , No periorbital swelling Ears- Ext ear normal, hearing normal to conversation. Neck- Midline trachea, supple Respiratory system: Air Entry equal on both sides, No crackles or wheezing, no rhonchi. CVS- Rate rhythm regular, S1,S2 heard, no gallop, no rub. Abdomen- Soft nontender abdomen, no organomegaly, no tenderness, no guarding or rigidity, [employer]- AOOx2, moving all extremities, no gross focal deficit noted. Medical - PN: Obj Da - Labs CBC & Chem 7: 10/02/17 04:28 10/02/17 04:28 Labs: Abnormal Lab Results 10/02/17 10/02/17 10/01/17 04:28 04:28 12:40 RBC 3.17 L Hgb 9.7 L Hct 29.9 L RDW 16.1 H Gran % Lymph % (Auto) 14.8 L Gran # Lymph # (Auto) 1.0 L ESR Carbon Dioxide 31 H Glucose Total Bilirubin 1.6 H Alkaline Phosphatase 15 L C-Reactive Protein Total Protein 5.7 L Urine Protein Urine Ketones Urine RBC 2 H 10/01/17 10/01/17 09/30/17 04:55 04:55 21:48 RBC 3.30 L Hgb 10.1 L Hct 30.9 L RDW 16.3 H Gran % 80.4 H Lymph % (Auto) 10.8 L Gran # Lymph # (Auto) 1.0 L ESR 25 H Carbon Dioxide Glucose 116 H Total Bilirubin 1.7 H Alkaline Phosphatase 15 L C-Reactive Protein 3.8 H Total Protein 5.8 L Urine Protein 30 A Urine Ketones 5/tr A Urine RBC 09/30/17 09/30/17 21:36 21:36 RBC 3.61 L Hgb 11.1 L Hct 34.1 L RDW 16.4 H Gran % 87.5 H Lymph % (Auto) 6.3 L Gran # 9.4 H Lymph # (Auto) 0.7 L ESR Carbon Dioxide Glucose 116 H Total Bilirubin 1.7 H Alkaline Phosphatase 19 L C-Reactive Protein Total Protein Urine Protein Urine Ketones Urine RBC Meds: Medications Acetaminophen (Tylenol) 650 mg PO Q6HP PRN PRN Reason: PAIN/FEVER > 101 Last Admin: 10/01/17 19:21 Dose: 650 mg Albuterol Sulfate (Ventolin) 2.5 mg NEB Q2HP PRN PRN Reason: Shortness Of Breath Aspirin (Aspirin) 81 mg PO DAILY JOAQUIN Last Admin: 10/02/17 11:23 Dose: 81 mg Atorvastatin Calcium (Lipitor) 40 mg PO HS [facility] Last Admin: 10/01/17 21:36 Dose: 40 mg Dextrose (Dextrose 50%) 0 ml IV UD PRN PRN Reason: Hypoglycemia Diagnostic Test (Pha) (Accu-Chek) 1 each FS ACHS [facility] Last Admin: 10/02/17 11:37 Dose: 1 each Docusate Sodium (Colace) 100 mg PO BID [facility] Last Admin: 10/02/17 11:22 Dose: 100 mg Donepezil HCl (Aricept) 10 mg PO HS [facility] Last Admin: 10/01/17 21:37 Dose: 10 mg Famotidine (Pepcid) 20 mg PO HS [facility] Last Admin: 10/01/17 21:37 Dose: 20 mg Glucose (Insta-Glucose) 15 gm PO PRN PRN PRN Reason: Hypoglycemia Heparin Sodium (Porcine) (Heparin) 5,000 unit SQ Q12 [facility] Last Admin: 10/02/17 11:22 Dose: 5,000 unit Piperacillin Sod/Tazobactam (Sod 3.375 gm/ Dextrose) 50 mls @ 100 mls/hr IV Q6H [facility] Last Admin: 10/02/17 13:42 Dose: 100 mls/hr Potassium Cl/Dextrose/Lact Ringer's (Dextrose 5%-Lr W/20meq Kcl) 1,000 mls @ 75 mls/hr IV .[id number] [facility] Stop: 10/03/17 16:24 Last Admin: 10/02/17 13:41 Dose: 75 mls/hr Insulin Human Lispro (Humalog) 0 unit SQ [facility] PRN Reason: Protocol Last Admin: 10/02/17 11:38 Dose: Not Given Lactobacillus Rhamnosus (Culturelle) 1 cap PO BID [facility] Last Admin: 10/02/17 11:27 Dose: 1 cap Levothyroxine Sodium (Synthroid) 100 mcg PO ACB [facility] Last Admin: 10/02/17 08:00 Dose: 100 mcg Lisinopril (Zestril) 5 mg PO DAILY [facility] Last Admin: 10/02/17 11:24 Dose: 5 mg Magnesium Oxide (Magnesium Oxide) 400 mg PO DAILY [facility] Last Admin: 10/02/17 11:24 Dose: 400 mg Memantine (Namenda) 5 mg PO DAILY [facility] Last Admin: 10/02/17 11:24 Dose: 5 mg Naloxone HCl (Narcan) 0.1 mg IV Q2MIN PRN PRN Reason: Opiate Reversal Ondansetron HCl (Zofran Odt) 4 mg SL Q6HP PRN PRN Reason: Nausea Last Admin: 10/01/17 08:14 Dose: 4 mg Oxybutynin Chloride (Ditropan Xl) 10 mg PO DAILY [facility] Last Admin: 10/02/17 11:23 Dose: Not Given Oxycodone HCl (Roxicodone) 5 mg PO Q4HP PRN PRN Reason: PAIN LEVEL 3-6 Pantoprazole Sodium (Protonix) 40 mg IV QAMAC [facility] Sodium Chloride (Saline Flush) 10 ml IV Q8 [facility] Last Admin: 10/02/17 06:02 Dose: 10 ml Medical - PN: A/P - Time Spent With Patient Total time spent is greater than 50% in coordination of care (as documented) at patient's floor/unit and/or counseling patient: - Narrative A/P Narrative: A/P Altered Mental status: due to infection? no clear e/o for same, fever has resolved, head ct is neg, workup neg so far, the drowsiness initially was likely secondary to use of meds, but now the patient is just confused, could be delirium vs a small TIA, the patient did have a 4-6mm TIA last admit. she remains high risk for delirium given her dementia Fever- resolved Possible pna - not seen on Ct, but some mild changes in the peribronchial lung tissue noted, continue zosyn for now, left oropharynx swelling- ct neg negative. h/o TIA/ CVA- on appropriate medical maangement. HTN/HLD/DM/ - c jr home meds to continue stable for now. Dementia- on home meds aricept and namenda osteoarthritis- prn pain meds DVT hep sq diet cardiac, diabetic DNR code status Plan of care reviewded with luis Medical - PN: Qual - Stroke Symptom Onset Unknown: No - VTE Deep Vein Thrombosis/Pulmonary Embolism Present on Admission: No
[2017-10-02] MEDS: ACETAMINOPHEN 325 MG TABLET PO PRN (21:00)
[2017-10-02] MEDS: ATORVASTATIN 20 MG TABLET PO SCH (21:00)
[2017-10-02] MEDS: DONEPEZIL 10 MG TABLET PO SCH (21:00)
[2017-10-02] MEDS: FAMOTIDINE 20 MG TABLET PO SCH (21:00)
[2017-10-03] MEDS: DEXTROSE 5%-LR W/20MEQ KCL 1,000 ML IV SCH (04:31)
[2017-10-03] MEDS: 0.9 % SODIUM CHLORIDE 10 ML SYRINGE IV SCH (05:27)
[2017-10-03] MEDS: PIPERACILLIN SODIUM/TAZOBACTAM 3.375 GM in DEXTROSE 5% IN WATER 50 ML IV SCH (05:47)
[2017-10-03 06:58] LABS: Basophils # (Auto) 0 K/mcL (0.0-0.3); Basophils % (Auto) 0.3 % (0.0-2.0); Eosinophils # (Auto) 0.5 K/mcL (0.0-0.7); Granulocytes % (Auto) 71.1 % (38.0-78.0); Lymphocytes # (Auto) 1.2 K/mcL (1.5-4.8); Lymphocytes % (Auto) 15.1 % (15.5-49.0); Monocytes # (Auto) 0.6 K/mcL (0.1-0.9); Monocytes % (Auto) 7.5 % (1.0-12.0); Platelet Count 188 K/mcL (140-440); Red Cell Distribution Width 15.6 % (11.5-14.5)
[2017-10-03 07:44] LABS: ALT/SGPT 12 U/l (0-40); Albumin 3.6 gm/dL (3.2-5.2); Albumin/Globulin Ratio 1.4 (1.0-2.3); Alkaline Phosphatase 16 U/L (39-117); Bilirubin,Direct 0.3 mg/dL (0.0-0.3); Blood Urea Nitrogen 10 mg/dl (8-23); Gamma Glutamyl Transpeptidase 34 U/L (5-36); Uric Acid 2.1 mg/dL (2.5-8.0)
[2017-10-03] MEDS ORDERED: ACETAMINOPHEN 1,000 MG/100 ML BOTTLE IV PRN (09:01)
[2017-10-03] MEDS ORDERED: ACETAMINOPHEN 1,000 MG/100 ML BOTTLE IV ONE (09:04)
--- NOTE | 2017-10-03 09:09 | Cat Scan Report ---
CLINICAL INFORMATION: Altered mental status COMPARISON: 09/30/2017 TECHNIQUE: 2.5 mm helical slices were obtained in the skull base to vertex. Following reconstruction, axial reformatted images were reviewed at bone and parenchymal windows. The exam was performed using radiation dose optimization techniques including, but not limited to, automated exposure control, adjustment of the mA and/or kV according to patient size and use of iterative reconstruction technique. FINDINGS: The ventricles, sulci, fissures, and cisterns are symmetrically enlarged compatible with mild atrophy which is stable. There is no subdural hemorrhage or other extra-axial fluid collection appreciated. Moderate cortical-based infarct in left frontal lobe - again noted. Patchy chronic ischemic changes in the cerebral white matter and remote lacunar infarcts in both external capsules are again seen. There is no intracerebral hemorrhage, edema, mass effect or other acute finding. Bone windows show degenerative changes in both TMJs with intra-articular calcification. No focal osseous abnormality. IMPRESSION: Moderate atrophy and chronic ischemic changes in the cerebral white matter typical for age. Moderate old cortical-based infarct in the left frontal lobe. No hemorrhage or other acute finding Interpreted and Authenticated by: Linwood Lutz 10/03/17
--- NOTE | 2017-10-03 09:11 | XRay Report ---
CLINICAL INFORMATION: Hypoxia COMPARISON: 09/30/2017 FINDINGS: Moderate cardiomegaly is slightly.. Mediastinum is unremarkable. Pulmonary vessels are mildly distended with minimal interstitial edema. No definite infiltrates. Small bilateral pleural effusions noted. IMPRESSION: Mild CHF Interpreted and Authenticated by: Linwood Lutz 10/03/17
--- NOTE | 2017-10-03 09:48 | XRay Report ---
CLINICAL INFORMATION: Pain COMPARISON: 06/19/2005 FINDINGS: Severe right and moderate left hip degenerative changes have progressed. Moderate degenerative change in the SI joints have also progressed. No osseous abnormality. Soft tissues are normal. IMPRESSION: Worsening degenerative change Interpreted and Authenticated by: Linwood Lutz 10/03/17
--- NOTE | 2017-10-03 09:53 | XRay Report ---
CLINICAL INFORMATION: Back pain COMPARISON: 06/19/2005 FINDINGS: T12 has short rudimentary ribs and L5 is visualized. There is four mm of L4 anterior subluxation due to degenerative facet disease (grade 1 spondylolisthesis). The remaining lumbar spine is anatomically aligned. Moderate chronic T8-T12 compression fractures are unchanged. Severe degenerative disc disease noted T8-9 through T12-L1, moderate L1-2, and mild L3-4 and L4-5 which has progressed. SI joints are normal. No soft tissue abnormalities IMPRESSION: Chronic compression fractures and degenerative change - as described. Generation has worsened since 2005 Interpreted and Authenticated by: Linwood Lutz 10/03/17
[2017-10-03] MEDS: OXYBUTYNIN CHLORIDE 5 MG TAB.XL.24H PO SCH (10:32)
[2017-10-03] MEDS: DOCUSATE SODIUM 100 MG CAPSULE PO SCH (10:32)
[2017-10-03] MEDS: LISINOPRIL 5 MG TABLET PO SCH (10:32)
[2017-10-03] MEDS: LACTOBACILLUS 1 CAPSULE PO SCH (10:32)
[2017-10-03] MEDS: MAGNESIUM OXIDE 400 MG TABLET PO SCH (10:33)
[2017-10-03] MEDS: HEPARIN 5,000 UNIT/ML VIAL SQ SCH (10:40)
[2017-10-03] MEDS: INSULIN LISPRO 1 UNIT/0.01 ML UNIT SQ SCH (10:55)
[2017-10-03] MEDS: PANTOPRAZOLE 40 MG VIAL IV SCH (10:55)
[2017-10-03] MEDS: LEVOTHYROXINE 100 MCG TABLET PO SCH (10:56)
[2017-10-03] MEDS: MEMANTINE 10 MG TABLET PO SCH (10:57)
[2017-10-03] MEDS: ASPIRIN 81 MG TAB.CHEW PO SCH (10:57)
--- NOTE | 2017-10-03 11:19 | Discharge Summary ---
Medical - DS: Prov Patient information: Note initiated : 10/03/17 at 11:09 am Service Date, if different from initiated Date: [] Patient: Lois Guy 81 y/o F admitted on 10/01/17 for Of floor since 1600/ ALOC. Chief Complaint: [] Date of admission: 10/01/17 00:27 Discharge date: 10/03/17 Primary care physician: Denisha Garcia Admitting clinician: Frandy Zamudio Consults: 09/30/17 23:45 Consult to Physician [CONS] Stat Comment: Consulting Provider: Frandy Zamudio Reason For Exam: Physician to Consult Discharging clinician: Frandy Zamudio Medical - DS: Meds - Discharge Medications Prescriptions: Acetaminophen [Acetaminophen Extra Strength] 1,000 mg PO TID #100 tab Furosemide [Lasix] 20 mg PO DAILY #30 tab Active and Home Medications: Home Medications Donepezil HCl [Aricept] 10 mg PO HS 04/10/16 [History Confirmed 10/01/17 Last Taken 09/29/17 21:00] Levothyroxine [Synthroid] 100 mcg PO DAILY 04/10/16 [History Confirmed 10/01/17 Last Taken 09/28/17 09:00] Memantine HCl 5 mg PO DAILY 04/10/16 [History Confirmed 10/01/17 Last Taken 09/12 09:00] Atorvastatin [Lipitor] 40 mg PO HS 06/21/17 [History Confirmed 10/01/17 Last Taken 09/29/17 21:00] Oxybutynin Chloride [Oxybutynin Chloride ER] 10 mg PO DAILY 06/21/17 [History Confirmed 10/01/17 Last Taken 09/29/17 09:00] Aspirin 81 mg PO DAILY 60 Days #30 07/02/17 [Rx Confirmed 10/01/17 Last Taken 09:00] Famotidine [Pepcid] 20 mg PO HS #30 tab 07/02/17 [Rx Confirmed 10/01/17 Last Taken 09/29/17 21:00] Cyclobenzaprine [Flexeril] 10 mg PO DAILYP PRN 09/30/17 [History Confirmed 10/01 Last Taken 09/30/17 10:30] Docusate Sodium [Dulcolax Stool Softener] 100 mg PO BID 09/30/17 [History Confirmed 10/01/17 Last Taken 09/30/17 09:00] Lactobacillus Acidophilus [Acidophilus Lactobacilli] 1 each PO BID 09/30/17 [ History Confirmed 10/01/17 Last Taken 09/30/17 09:00] Lisinopril [Zestril] 5 mg PO DAILY 09/30/17 [History Confirmed 10/01/17 Last Taken 09/30/17 09:00] Magnesium Oxide [Magox 400] 400 mg PO DAILY 09/30/17 [History Confirmed Last Taken 09/30/17 09:00] Potassium Chloride [Kdur] 20 meq PO QAMCC 09/30/17 [History Confirmed 09/30/17 Last Taken Unknown] Medical - DS: Hosp Hospital course: Ms. Guy is a 81 year old Female with multiple medical issues, living with her daughter, presents to the ER for confusion for 1 day, according to the daughter she has been complaining of low back pain x 2 days, has received cyclobenzaprine for 2 days, which made her drowsy, she also has pain in the hips secondary to Arthritis, and has recently received a steroid injection. The patient since this morning has not been her self, she is more confused and unable to carry out a meaningful conversation. The daughter denies any focal changes, just notes she is not her self. She denies any acute complaints like cough, chest pain, shortness of breath, has been warm to touch, no urinary complaints reported. The patients was brought to the ER for further evaluation. The last time the patient had a similar presentation, she took a while to develop full sepsis and had to be seen in the ER 2 times before a source was identified. 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 The patient daughter also reports a swelling inside the neck on the left side which is new? In the ER the patient had fever of 101, hr in the 90's bp stable, on room air, labs show wbc of 10, hb 11.1. Platelet of 196. Lactic acid is 1.1. Left lites are stable creatinine 0.9 glucose 116. UA is negative. The patient is being admitted to the hospital as obs for further workup and monitoring. The patient had CXR which was negative for pneumonia, CT chest negative for pna , CT head x 2 negative for any intracranial process, no sinusitis, just old CVA , the patient had ua neg x 2 Procalcitonin is neg, The patient remained intermittently confused. She has moderate dementia, and at baseline is able to converse and take care of self. The patient remained confused during the hospital stay, noted about some pain in her hips, Her ESR was 25, and CRP 3.8, making a septic joint far less likely. She had no headache or menigeal signs, CSF was therefore not persued X ray lumbar spine showed DJD and olf Fractures, worsening, X ray nii hips showed severe osteoarthrtitis. 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 She has follow up with orthopedic surgeon dr dorman for further evaluation of severe osteoarthritis. Given her vertebral fractures though I am not sure if she will be able to pain free even after a hip replacement. I will leave this decision to the surgeon and the patients PCP. The patient initially was planned to go to a Rehab facility, but given that delirium patients do well in the home surroundings the daugther wanted to the take the patient home with home health. This was agreed by the patients POA/ Guardian Given her overall poor health I did ask regarding palliative care as a option, there seems to be quite a difference of opinion regarding this option at this time. I will leave palliative care discussions to the PCP who would know the patient better. Patient CXR shows mild congestion, will start her on lasix 20mg once daily, during the last hospitalization, which I do not see at present, will start on lasix 20mg po daily. At the time of discharge the patients mental status has improved since admission , but not back to baseline yet, she needs support to ambulate and feed her self , the daughter is willing to take the trinh ent home and she notes she is with her 18/11 to provide all the necessary care. Discharge diagnosis: Hip / back pain, Altered Mental status, delirum - Time Spent with Patient Total time spent providing and/or coordinating discharge services: Greater than 30 minutes Medical - DS: Exam - Constitutional Vitals: Vital Signs Temp Pulse Resp BP BP Pulse Ox 10/03/17 07:56 98.6 F 18 156/88 94 10/03/17 07:11 80 10/03/17 04:00 98.5 F 83 18 172/82 92 10/03/17 00:00 99.0 F H 75 16 161/76 91 10/02/17 20:00 99.4 F H 94 H 20 180/94 92 10/02/17 16:00 97.7 F 65 16 159/83 90 Intake and Output 10/02/17 10/03/17 10/03/17 21:59 05:59 13:59 Intake Total 220 / 220 1200 / 1200 50 / 50 Output Total 352 / 352 750 / 750 551 / 551 Balance -132 / -132 450 / 450 -501 / -501 Intake: IV 100 / 100 1050 / 1050 50 / 50 Dextrose 5%-Lr W/20Meq KCl 1, 1000 / 1000 000 ml @ 75 mls/hr IV .[id number] JOAQUIN Rx#:[id number] Zosyn 3.375 gm In Dextrose 5% 100 / 100 50 / 50 50 / 50 in Water 50 ml @ 100 mls/hr IV Q6H JOAQUIN Rx#:[id number] Oral 120 / 120 150 / 150 Output: Void Amount 350 / 350 750 / 750 550 / 550 # of times incontinent of urine 2 / 2 Other: Meal Dinner Percent of Meal Consumed 25% # Voids 1 Weight 159 lb Additional comments: Constitutional; Afebrile, cooperative, alert, not in distress. Eyes- No icterus, , No periorbital swelling Ears- Ext ear normal, Neck- Midline trachea, supple Respiratory system: Air Entry equal on both sides, No crackles or wheezing, no rhonchi. CVS- Rate rhythm regular, S1,S2 heard, no gallop, no rub. Abdomen- Soft nontender abdomen, no organomegaly, no tenderness, no guarding or rigidity, PIPELINE EXECUTIVE- AOOx1, moving all extremities, no gross focal deficit noted. Medical - DS: Data Labs on day of discharge: Labs from last 24 hours 10/03/17 10/03/17 04:23 04:23 WBC 7.9 RBC 3.30 L Hgb 10.2 L Hct 31.0 L MCV 94.0 MCH 31.0 MCHC 33.0 RDW 15.6 H Plt Count 188 MPV 8.6 Gran % 71.1 Lymph % (Auto) 15.1 L Hyde % (Auto) 7.5 Eos % (Auto) 6.0 Baso % (Auto) 0.3 Gran # 5.6 Lymph # (Auto) 1.2 L Hyde # (Auto) 0.6 Eos # (Auto) 0.5 Baso # (Auto) 0 Sodium 144 Potassium 3.9 Chloride 102 Carbon Dioxide 31 H Anion Gap 11.0 BUN 10 Creatinine 1.0 GFR Calculation 52 Glucose 104 Uric Acid 2.1 L Calcium 9.5 Phosphorus 3.6 Magnesium 1.6 Total Bilirubin 1.9 H Direct Bilirubin 0.3 GGT 34 AST 16 ALT 12 Alkaline Phosphatase 16 L Lactate Dehydrogenase 199 Total Protein 6.1 Albumin 3.6 Globulin 2.5 Albumin/Globulin Ratio 1.4 Triglycerides 56 Medical - DS: A/P - Patient/Caregiver Discharge Instructions Activity: increase activity as tolerated Diet: Cardiac Additional Instructions: I have started the patient on lasix 20mg once daily, She will complete the course of Antibiotic, levofloxacin 500mg for another 5 days She will take all her other home medications as previously prescribed. She will stop the use of cyclobenazprine. Despite extensive workup at this point we were not able to find a good cause for the patient's change in mental status, at this time the most likely cause seems to be delirium secondary to pain. I am unable to explain the fever she had during presentation, we have not been able to find a source of infection. Please take 1000mg tylenol three times a day for management of her severe back pain and osteoarthritis pain. Should that be not enough, ok to use low dose oxydocone on a prn basis. If the patients symptom worsen, she develop fever, chest pain,shortness of breath or any other acute concerning symptom. Please bring her back to the ER Follow up with PCP in 1 week. PCP to decide whether the dose of lasix needs to be adjusted. Advise PCP check cbc, cmp in 1 week. Home physical therapy, occupational therapy and speech therapy have been ordered. - Follow up Plan Follow up with: Denisha Garcia MD [Primary Care Provider] - Disposition: Home Health Service Prognosis: Fair Rehab Potential: Fair I certify that the patient requires SNF services: No Overall status at discharge: patient is progressing back to baseline Medical - DS: Qual - VTE Deep Vein Thrombosis/Pulmonary Embolism Present on Admission: No
[2017-10-03] MEDS ORDERED: ACETAMINOPHEN 500 MG TABLET PO ONE (11:52)
== END 2017-10-03 12:50 | disposition home health service (06) ==
LOC: MEDSUR 21:00 → ED 21:00 → MEDSUR 10-01 00:27
PROVIDERS: ADMIT Internal Medicine; ATTEND Internal Medicine